=== PATIENT | female | born 1955 | race Caucasian/White ===

== ENCOUNTER → 2020-08-02 | Day surgery (SDC) | payer OTHER ==
--- NOTE | 2020-08-02 13:20 | RAD REPORT ---
EXAM DESCRIPTION: US - Breast Core BX w/US Guidance - 08/02/2020 9:42 am CLINICAL HISTORY: N63.12,N63.11,R92.8 COMPARISON: Mammogram June 25, breast ultrasound July 09 TECHNIQUE: The patient presents for ultrasound-guided biopsy of 2 right breast masses detailed on e earlier imaging. Patient is far remote from bilateral breast surgical procedures. The ultrasound-guided core biopsy procedure, risks and alternatives were discussed with the patient i n detail. After answering all questions, both oral and written consent were obtained. Time out proced ure was performed. The patient had no contraindicated allergy or medication history. Patient was suff iciently off aspirin therapy. Preliminary imaging identified the 2 right breast masses. The right breast was prepped and draped in the usual sterile fashion. The 15-18 mm lobulated 1 o'clock upper inner quadrant mass was first lesio n to be biopsied. From an inferior approach, skin and deeper tissues were anesthetized with 1% lidoca ine. Under direct sonographic visualization a 14 gauge vacuum assisted core biopsy needle was advance d and placed at the margin of the mass. There were a total of 3 core biopsies obtained under direct s onographic guidance. The mass did appear to have distortion in contour supporting transit of the biop sy needle through the small mass. At the conclusion of the procedure a localization clip was placed u nder sonographic guidance. The small spiculated 8 mm mass in the 9-10 o'clock right breast was then subjected to biopsy. Promine nt inferior approach the skin and deep tissues were anesthetized with 1% lidocaine under sonographic guidance. Under sonographic guidance a 14 gauge vacuum assisted biopsy needle was advanced and placed at the inferior margin of the mass. A total of 4 core biopsies obtained. At the conclusion of the p rocedure the localization clip was placed under sonographic guidance. Post biopsy imaging showed no hematoma or measurable bleeding within the breast. Hemostasis was obtai wil at the skin sites with a sterile bandages placed. Post procedure care and precaution instructions were given to the patient. IMPRESSION: 1. Ultrasound-guided core biopsy was performed of the 2 right breast masses. All obtaine d material was given to pathology for histologic assessment. 2. Post biopsy localization clips were placed under ultrasound guidance.
--- NOTE | 2020-08-02 13:22 | RAD REPORT ---
EXAM DESCRIPTION: US - Breast Core BX Addtnl - 08/02/2020 9:42 am CLINICAL HISTORY: Two right breast masses COMPARISON: Mammogram June 25, ultrasound July 09 FINDINGS: Patient has 2 right breast masses, upper inner quadrant 1 o'clock and upper outer quadrant 10 o'clock. Both masses were subjected to ultrasound-guided biopsy and post biopsy localization clip placement. The procedure for both breast masses detailed in the other breast biopsy report. IMPRESSION: Two right breast masses were subjected to biopsy as detailed in the other breast biopsy report.
== END ==
LOC: DS 10:07
PROVIDERS: ATTEND Surgery
DX: N63.12 Unspecified lump in the right breast, upper inner quadrant (principal); N63.11 Unspecified lump in the right breast, upper outer quadrant; R92.8 Other abnormal and inconclusive findings on diagnostic imaging of breast
CPT/HCPCS: 19083; 19084; 88305

== ENCOUNTER 2020-08-18 06:27 | Inpatient (IN) | payer OTHER ==
[2020-08-17 16:46] LABS: Absolute Lymphocytes (CBC) 3.2 K/uL (0.7-4.9); Basophils % 0.7 % (0-1.3); Hematocrit 46.5 % (36.0-45.0); Lymphocytes % 24.5 % (15.3-44.8); MPV 9.9 fL (7.6-11.3); RBC Red Blood Cell Count 5.16 M/uL (3.86-4.86)
--- NOTE | 2020-08-17 17:35 | RAD REPORT ---
EXAM DESCRIPTION: RAD - Chest Pa And Lat (2 Views) - 08/17/2020 4:42 pm CLINICAL HISTORY: preop, pending mastectomy COMPARISON: Portable January 2014 TECHNIQUE: Frontal and lateral views of the chest were obtained. FINDINGS: The lungs are fibrotic. Linear atelectasis or scarring seen in the lower left lung field. The interstitial pattern is similar to comparison. Heart size is normal and central vasculature is within normal limits. No pleural effusion or pneumothorax seen. No acute bony finding noted. No ao rtic abnormality. IMPRESSION: No acute cardiopulmonary process. No significant change from comparison study.
[2020-08-18] MEDS ORDERED: CEFAZOLIN/SWI 1gm 0 GM/0 ML SYR ONE (07:17)
[2020-08-18] MEDS ORDERED: NA CHLORIDE 0.9% 1,000 ML ONE (07:17)
[2020-08-18] MEDS: FENTANYL CITR 100 MCG/2 ML ONE ×2 (08:10→08:54)
[2020-08-18] MEDS ORDERED: propofoL 200 MG/20 ML VIAL IV ONE (10:30)
[2020-08-18] MEDS ORDERED: LIDOCAINE 2% MPF 5 ML VIAL ONE (10:32)
[2020-08-18] MEDS ORDERED: FENTANYL CITR 100 MCG/2 ML ONE (10:32)
[2020-08-18] MEDS ORDERED: MIDAZOLAM HCL 2 MG/2 ML INJ ONE (10:33)
[2020-08-18] MEDS ORDERED: ONDANSETRON 4 MG/2 ML VIAL ONE (10:33)
[2020-08-18] MEDS ORDERED: GLYCOPYRROLATE 0.2 MG/ML SYR ONE (10:34)
[2020-08-18] MEDS ORDERED: ROCURONIUM 50 MG/5 ML VIAL IV ONE (10:34)
[2020-08-18] MEDS ORDERED: NEOSTIGMINE 1 MG/ML -5 ML ONE (10:34)
[2020-08-18] MEDS: NA CHLORIDE 0.9% 1,000 ML ONE ×4 (10:43→14:30)
[2020-08-18] MEDS: CEFAZOLIN/SWI 2gm 2 GM/20 ML SYR ONE ×2 (10:47→11:26)
[2020-08-18] MEDS: METHYLENE BLUE 0.5% 10 ML AMP ONE ×2 (11:48→12:02)
--- NOTE | 2020-08-18 13:13 | RAD REPORT ---
EXAM DESCRIPTION: NM - Lymphoscintigraphy - 08/18/2020 8:04 am CLINICAL HISTORY: Breast cancer . TECHNIQUE: Four injections of 0.01 millicuries technetium filtered sulfur colloid administered into the the vish arerolar region of the right breast. The injections were placed at Twelve o'clock, 3 o'c lock, 6 o'clock and 9 o'clock positions. Subsequently a scintigram was obtained which demonstrated the radiotracer within these locations. IMPRESSION: Right breast lymphoscintigram
[2020-08-18] MEDS ORDERED: GLUCAGON 1 MG/VIAL IM PRN ×2 (15:08→17:11)
[2020-08-18] MEDS: HYDROMORPHONE HCL 1 MG/ML INJ ONE ×2 (15:09→15:20)
[2020-08-18] MEDS ORDERED: D50W 25 GM/50 ML VIAL IV PRN ×2 (15:36→17:19)
[2020-08-18 16:26] VITALS: BMI 29.2
[2020-08-18] MEDS: INSULIN -REGULAR HUMAN 50 UNIT/0.5 ML ML SQ SCH ×2 (16:29→20:12)
[2020-08-18] MEDS: NACHLORIDE 0.45% 1,000 ML IV SCH (16:29)
--- NOTE | 2020-08-18 17:10 | P.CNS ---
Date of Consult: 08/18/20 Reason for Consult: Diabetic management Requesting Physician: Thad Anderson Primary Care Provider: Dr. Gonzáles Chief Complaint: Diabetic management History of Present Illness: 65-year-old female who just had a bilateral mastectomy with node biopsy. Patient with history of breast cancer. I was consulted to address her diabetes for better control. 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 Patient doing well postoperatively. Patient reports back pain that has been chronic. Otherwise no significant nausea, vomiting. No chest pain or shortness of breath. She reports that her blood sugars are not very well controlled. She does not recall when her last hemoglobin A1c test has been done. Allergies clindamycin palmitate HCl [From Cleocin] Allergy (Severe, Verified 08/18/20 07:41) Nausea/Vomiting clindamycin phosphate [From Cleocin] Allergy (Severe, Verified 08/18/20 07:41) Nausea/Vomiting clindamycin HCl [From Cleocin] Allergy (Intermediate, Verified 08/18/20 07:41) Nausea/Vomiting adhesive tape Allergy (Verified 08/18/20 07:41) Rash Home medications list reviewed: Yes Home Medications: ALPRAZolam [Alprazolam] 1 mg PO BID 08/17/20 Ascorbic Acid [Vitamin C] 500 mg PO DAILY 08/17/20 Aspirin [Aspirin EC 81 MG] 81 mg PO BEDTIME 08/17/20 Baclofen 10 mg PO BID 08/17/20 Cholecalciferol (Vitamin D3) [Vitamin D3] 1,000 unit PO DAILY 08/17/20 Cholestyramine (with Sugar) [Cholestyramine Packet] 4 gm PO DAILY 08/17/20 Diclofenac Sodium [Diclo Gel] 1 each TP PRN PRN 08/17/20 Esomeprazole Magnesium 40 mg PO DAILY 08/17/20 Gabapentin 300 mg PO TID 08/17/20 Insulin Glargine Human [Lantus] 20 unit SQ BID 08/17/20 Metformin HCl 1,000 mg PO BIDWM 08/17/20 Multivitamin [One-Daily Multi-Vitamin] 1 each PO DAILY 08/17/20 [place]-3 Fatty Acids [[place]-3] 500 mg PO DAILY 08/17/20 Ondansetron HCl 4 mg PO Q8HP PRN 08/17/20 Pramipexole [Mirapex] 0.25 mg PO BEDTIME 08/17/20 Sertraline [Zoloft] 50 mg PO DAILY 08/17/20 Simvastatin 40 mg PO BEDTIME 08/17/20 Triamcinolone 0.1% Crm [Kenalog 0.1% Cream] 15 appl TOP PRN PRN 08/17/20 Vitamin E 400 unit PO DAILY 08/17/20 fentaNYL [Fentanyl] 50 mcg TD Q72H 08/17/20 - Past Medical/Surgical History Diabetic: Yes -: COPD -: Diabetes mellitus type 2 insulin-dependent -: Hyperlipidemia -: Depression with anxiety -: Chronic pain -: Breast cancer -: HYSTERECTOMY -: breast flap (tumors removed x 2 each breast) /abdominal sx -: vein stripping right leg -: fatty tumor removed groin -: BACK SURGERY -: BACLOFEN PAIN PUMP Psychosocial/ Personal History: Patient lives at home - Family History Father Medical History: Diabetes, Cancer Notes: pt states father was borderline diabetic, diet at the age of 56 from cancer. Mother Medical History: Cancer Notes: pt states mother at the age of 61 from cancer (female cancer). - Social History Smoking Status: Current every day smoker Alcohol use: No CD- Drugs: No Caffeine use: Yes Place of Residence: Home Review of Systems General: As per HPI Eyes: Unremarkable ENT: Unremarkable Respiratory: Unremarkable Cardiovascular: As per HPI Gastrointestinal: Unremarkable Genitourinary: Unremarkable Musculoskeletal: Back Pain, As per HPI Integumentary: Unremarkable Neurological: Unremarkable Lymphatics: Unremarkable Physical Examination Temp Pulse Resp BP Pulse Ox 97.3 F 112 H 18 139/75 08/18/20 15:29 08/18/20 15:29 08/18/20 15:29 08/18/20 15:29 General: Alert, In no apparent distress, Oriented x3, Cooperative HEENT: Atraumatic Neck: Supple Respiratory: Clear to auscultation bilaterally, Normal air movement Cardiovascular: Normal pulses, Regular rate/rhythm Gastrointestinal: Normal bowel sounds, No tenderness, No masses, No rebound, No guarding Integumentary: Other (Postoperative changes to the breast bilateral. Bandages in place.) Neurological: Normal speech, Normal strength at 5/5 x4 extr, Normal tone, Normal affect Conclusions/Impression: Impression: Status post bilateral breast mastectomy with lymph node biopsy secondary to breast cancer Diabetes mellitus type 2 insulin-dependent Chronic back pain with neuropathy Depression with anxiety GERD Plan: Status post bilateral breast mastectomy with lymph node biopsy secondary to breast cancer: We will follow along with surgery who is the primary physician. Continue with pain control medication. Anticipate likely discharge in the next 24 to 48 hours. Diabetes mellitus type 2 insulin-dependent: We will check A1c. Continue sliding scale. Will restart her basal insulin. We will also restart her metformin. Chronic back pain with neuropathy: Her pain medication will need to be restarted. Will discuss with surgery. Depression with anxiety: Medications will need to be restarted. GERD: Will provide medication. DVT prophylaxis: Lovenox CODE STATUS: Full code Advance care [id number] minutes: Home at discharge. Time Spent Managing Pts care (In Minutes): 55
[2020-08-18] MEDS ORDERED: HOME MED 1 EA UNK (Fentanyl [Fentanyl] Patch.Td72) TD SCH (17:15)
[2020-08-18] MEDS: FENTANYL 50 MCG/PATCH TD SCH (18:22)
[2020-08-18] MEDS: CIPROFLOXACIN 400mg IV 400 MG/200 ML BAG IV SCH (20:09)
[2020-08-18] MEDS: PRAMIPEXOLE 0.25 MG TAB PO SCH (20:11)
[2020-08-18] MEDS: HYDROCODONE/APAP 7.5/325 MG TAB PO PRN (20:11)
[2020-08-18] MEDS: ASPIRIN EC 81 MG TAB PO SCH (20:11)
[2020-08-18] MEDS: ATORVASTATIN 20 MG TAB PO SCH (20:11)
[2020-08-18] MEDS: BACLOFEN 10 MG TAB PO SCH (20:11)
[2020-08-18] MEDS: GABAPENTIN 300 MG CAP PO SCH (20:12)
[2020-08-18] MEDS: ALPRAZOLAM 1 MG TABLET PO SCH (20:12)
[2020-08-18] MEDS: INSULIN GLARGINE 100 UNITS/ML SQ SCH (20:23)
[2020-08-18] MEDS ORDERED: HOME MED 1 EA UNK (Simvastatin [Simvastatin] 40 MG Tablet) PO SCH (21:00)
[2020-08-19] MEDS: NACHLORIDE 0.45% 1,000 ML IV SCH ×4 (01:52→22:00)
[2020-08-19 05:50] LABS: Absolute Lymphocytes (CBC) 3.1 K/uL (0.7-4.9); Basophils % 0.7 % (0-1.3); Hematocrit 37.6 % (36.0-45.0); Lymphocytes % 22.1 % (15.3-44.8); MPV 9.8 fL (7.6-11.3); RBC Red Blood Cell Count 4.14 M/uL (3.86-4.86)
--- NOTE | 2020-08-19 06:01 | P.PN ---
Subjective Date of Service: 08/19/20 Primary Care Provider: Dr. Gonzáles Chief Complaint: Diabetic management Subjective: Improving, Doing well Physical Examination - Vital Signs Temperature: 97.6 F Blood Pressure: 102/52 Pulse: 76 Respirations: 16 Pulse Ox (%): 97 Assessment & Plan Discharge Plan: Home Plan to discharge in: 24 Hours Physician Review Additional Text: Physical Exam: General: Alert, In no apparent distress, Oriented x3, Cooperative HEENT: Atraumatic Neck: Supple Respiratory: Clear to auscultation bilaterally, Normal air movement Cardiovascular: Normal pulses, Regular rate/rhythm Gastrointestinal: Normal bowel sounds, No tenderness, No masses, No rebound, No guarding Integumentary: Other (Postoperative changes to the breast bilateral. Bandages in place.) Neurological: Normal speech, Normal strength at 5/5 x4 extr, Normal tone, Normal affect Impression: Status post bilateral breast mastectomy with lymph node biopsy secondary to breast cancer Diabetes mellitus type 2 insulin-dependent Chronic back pain with neuropathy Depression with anxiety GERD Plan: Status post bilateral breast mastectomy with lymph node biopsy secondary to breast cancer: Will continue to follow along with surgery who is the primary physician. Continue with pain control medication. Anticipate likely discharge in the next 24 to 48 hours. Diabetes mellitus type 2 insulin-dependent: Continue with basal insulin and Metformin. Will monitor and adjust medication appropriately. Hemoglobin A1c well controlled. Chronic back pain with neuropathy: Continue with her pain medication Depression with anxiety: Continue with her medication GERD: Will provide medication. DVT prophylaxis: Lovenox CODE STATUS: Full code Advance care minutes: Home at discharge. Time Spent Managing Pts Care (In Minutes): 55
[2020-08-19 06:16] LABS: ALT/SGPT 14 U/L (12-78); AST/SGOT 16 U/L (15-37); Albumin 2.9 g/dL (3.4-5.0); Alkaline Phosphatase 49 U/L (45-117); BUN Blood Urea Nitrogen 6 mg/dL (7-18); Bicarbonate 28 mmol/L (21-32); Bilirubin Total 0.7 mg/dL (0.2-1.0); Glucose Level 149 mg/dL (74-106); Potassium 3.5 mmol/L (3.5-5.1); Protein, Total 5.7 g/dL (6.4-8.2); Sodium Level 141 mmol/L (136-145)
[2020-08-19] MEDS: HYDROCODONE/APAP 7.5/325 MG TAB PO PRN ×3 (06:22→21:41)
[2020-08-19] MEDS: INSULIN -REGULAR HUMAN 50 UNIT/0.5 ML ML SQ SCH ×4 (07:30→21:00)
[2020-08-19] MEDS ORDERED: HOME MED 1 EA UNK (Metformin Hcl [Metformin Hcl] 1,000 MG Tablet) PO SCH (08:00)
[2020-08-19] MEDS: CIPROFLOXACIN 400mg IV 400 MG/200 ML BAG IV SCH ×2 (08:52→21:41)
[2020-08-19] MEDS: ALPRAZOLAM 1 MG TABLET PO SCH ×2 (08:57→21:42)
[2020-08-19] MEDS: VITAMIN D 1000 UNIT TAB PO SCH (08:57)
[2020-08-19] MEDS: METFORMIN HCL 500 MG TAB PO SCH ×2 (08:58→17:34)
[2020-08-19] MEDS: GABAPENTIN 300 MG CAP PO SCH ×3 (08:59→21:42)
[2020-08-19] MEDS: SERTRALINE HCL 50 MG TAB PO SCH (08:59)
[2020-08-19] MEDS: BACLOFEN 10 MG TAB PO SCH ×2 (08:59→21:42)
[2020-08-19] MEDS: MULTIVITAMIN TAB PO SCH (08:59)
[2020-08-19] MEDS ORDERED: HOME MED 1 EA UNK (Cholestyramine (With Sugar) [Cholestyramine Packet] 4 GM Powd.Pack) PO SCH (09:00)
[2020-08-19] MEDS: HOME MED 1 EA UNK (Omega-3 Fatty Acids [Omega-3] 1,000 MG Capsule) PO SCH (09:00)
[2020-08-19] MEDS ORDERED: MULTIVITAMIN PO SCH (09:00)
[2020-08-19] MEDS ORDERED: VITAMIN E 400 UNIT PO SCH (09:00)
[2020-08-19] MEDS ORDERED: HOME MED 1 EA UNK (Cholecalciferol (Vitamin D3) [Vitamin D3] 1,000 UNIT Capsule) PO SCH (09:00)
[2020-08-19] MEDS ORDERED: HOME MED 1 EA UNK (Esomeprazole Magnesium [Esomeprazole Magnesium] 40 MG Capsule.Dr) PO SCH (09:00)
[2020-08-19] MEDS: ASCORBIC ACID 500 MG TABLET PO SCH (09:00)
[2020-08-19] MEDS: PANTOPRAZOLE 40MG TABLET PO SCH (09:00)
[2020-08-19] MEDS: CHOLESTYRAMINE/ASP 4 GM/PKT PO SCH (09:01)
[2020-08-19] MEDS: VITAMIN E 400 IU CAP PO SCH (09:34)
[2020-08-19] MEDS: ENOXAPARIN 40 MG/0.4 ML SQ SCH (17:35)
--- NOTE | 2020-08-19 20:44 | PN ---
Date of Progress Note: 08/19/2020 Diagnosis: Status post bilateral mastectomy with sentinel lymph node biopsy. History of back pain. Subjective: The patient with history of breast cancer. The patient has previous a rectus muscle fla p in her breast from previous plastic surgery in the past. So, the surgery was not a routine mastect tamara, was a little bit more complicated since also muscle have to be removed, obviously that translati ng into a longer recovery, but she is doing great. She is still not tolerating pain with just by kath th. She is requiring IV medication. She also has this chronic back pain that is not helping either. She denies any shortness of breath, any chest pain, any fever. Chest clear. Intact surgical site. RUFINO serosanguineous. Abdomen soft and depressible. Laboratory Data: Blood work shows WBC count of 14, hemoglobin of 12 and chloride is 110. I appreciate Dr. Watkins's evaluation of her multiple medical history. We will follow his recommendat ions. From the surgical standpoint, she is not ready to be discharged yet. She is still requiring I V pain medication. Once again, this is a double mastectomy, but not routine one. It is a complex si nce the patient has previous breast reconstruction with an abdominal rectus muscle placed in those ar eas. Even though this surgery was successful, we believe it is a longer recovery. We are going to t ry to see if she is ready tomorrow, then we will proceed accordingly in a safe fashion. We like this patient to be discharged safely. ELENITA/CASS Voice ID: [id number] Report ID: [id number]
[2020-08-19] MEDS: ATORVASTATIN 20 MG TAB PO SCH (21:42)
[2020-08-19] MEDS: PRAMIPEXOLE 0.25 MG TAB PO SCH (21:42)
[2020-08-19] MEDS: INSULIN GLARGINE 100 UNITS/ML SQ SCH (21:42)
[2020-08-19] MEDS: ASPIRIN EC 81 MG TAB PO SCH (21:42)
--- NOTE | 2020-08-20 06:02 | P.PN ---
Subjective Date of Service: 08/20/20 Primary Care Provider: Dr. Gonzáles Chief Complaint: Diabetic management Subjective: Improving, Doing well Physical Examination - Vital Signs Temperature: 97.1 F Blood Pressure: 134/65 Pulse: 81 Respirations: 18 Pulse Ox (%): 97 - Studies Laboratory Data (last 24 hrs) 08/19/20 05:18: Sodium 141, Potassium 3.5, BUN 6 L, Creatinine 0.58, Glucose 149 H, Total Bilirubin 0.7, AST 16, ALT 14, Alkaline Phosphatase 49 08/19/20 05:18: WBC 14.20 H, Hgb 12.8 D, Hct 37.6 D, Plt Count 150 L D Assessment & Plan Discharge Plan: Home Plan to discharge in: 24 Hours Physician Review Additional Text: Physical Exam: General: Alert, In no apparent distress, Oriented x3, Cooperative HEENT: Atraumatic Neck: Supple Respiratory: Clear to auscultation bilaterally, Normal air movement Cardiovascular: Normal pulses, Regular rate/rhythm Gastrointestinal: Normal bowel sounds, No tenderness, No masses, No rebound, No guarding Integumentary: Other (Postoperative changes to the breast bilateral. Bandages in place.) Neurological: Normal speech, Normal strength at 5/5 x4 extr, Normal tone, Normal affect Impression: Status post bilateral breast mastectomy with lymph node biopsy secondary to breast cancer Diabetes mellitus type 2 insulin-dependent Chronic back pain with neuropathy Depression with anxiety GERD Plan: Status post bilateral breast mastectomy with lymph node biopsy secondary to breast cancer: Will continue to follow along with surgery who is the primary physician. Continue with pain control medication. Anticipate likely discharge today. She is medically clear for ak home. Diabetes mellitus type 2 insulin-dependent: Continue with basal insulin and Metformin. Will monitor and adjust medication appropriately. Hemoglobin A1c well controlled. Chronic back pain with neuropathy: Continue with her pain medication Depression with anxiety: Continue with her medication GERD: Will provide medication. DVT prophylaxis: Lovenox CODE STATUS: Full code Advance care minutes: Home at discharge. Time Spent Managing Pts Care (In Minutes): 55
[2020-08-20] MEDS: HYDROCODONE/APAP 7.5/325 MG TAB PO PRN ×2 (06:13→14:33)
[2020-08-20] MEDS: INSULIN -REGULAR HUMAN 50 UNIT/0.5 ML ML SQ SCH ×4 (07:30→21:00)
[2020-08-20] MEDS: VITAMIN E 400 IU CAP PO SCH (09:00)
[2020-08-20] MEDS: HOME MED 1 EA UNK (Omega-3 Fatty Acids [Omega-3] 1,000 MG Capsule) PO SCH (09:00)
[2020-08-20] MEDS: VITAMIN D 1000 UNIT TAB PO SCH (09:50)
[2020-08-20] MEDS: SERTRALINE HCL 50 MG TAB PO SCH (09:50)
[2020-08-20] MEDS: ASCORBIC ACID 500 MG TABLET PO SCH (09:50)
[2020-08-20] MEDS: METFORMIN HCL 500 MG TAB PO SCH ×2 (09:50→16:51)
[2020-08-20] MEDS: ALPRAZOLAM 1 MG TABLET PO SCH ×2 (09:50→22:10)
[2020-08-20] MEDS: GABAPENTIN 300 MG CAP PO SCH ×3 (09:50→22:11)
[2020-08-20] MEDS: CIPROFLOXACIN 400mg IV 400 MG/200 ML BAG IV SCH ×2 (09:50→22:11)
[2020-08-20] MEDS: PANTOPRAZOLE 40MG TABLET PO SCH (09:50)
[2020-08-20] MEDS: BACLOFEN 10 MG TAB PO SCH ×2 (09:51→22:11)
[2020-08-20] MEDS: MULTIVITAMIN TAB PO SCH (09:51)
[2020-08-20] MEDS: CHOLESTYRAMINE/ASP 4 GM/PKT PO SCH (09:51)
--- NOTE | 2020-08-20 11:43 | RAD REPORT ---
EXAM DESCRIPTION: RAD - Chest Single View - 08/20/2020 11:34 am CLINICAL HISTORY: hypoxia COMPARISON: Chest Pa And Lat (2 Views) dated 08/17/2020; CHEST SINGLE VIEW dated 01/24/2014; CHEST SIN GLE VIEW dated 12/18/2013; CHEST SINGLE VIEW dated 09/14/2013 FINDINGS: Postoperative changes in the breasts bilaterally. Surgical drains and parul are present. Increased linear opacities are present at the right lung base and hazy right upper lung opacity. Sim ilar scarring at the left lung base. Similar mild cardiomegaly. IMPRESSION: Increasing linear opacities at the right lung base and hazy right upper lung opacity riya t could reflect atelectasis and/or aspiration. Chronic changes in the left lung.
[2020-08-20] MEDS ORDERED: FUROSEMIDE 20 MG/ 2ML VIAL IV ONE (11:50)
[2020-08-20] MEDS: ENOXAPARIN 40 MG/0.4 ML SQ SCH (16:50)
--- NOTE | 2020-08-20 19:30 | DS ---
Diagnosis: Breast cancer, status post bilateral mastectomy with sentinel lymph node biopsy. Hospital Course: The patient feels better. She has history of chronic pain, on pain pump and Durage sic patch, that is holding her at this time. No shortness of breath. No chest pain. No fever. No calf tenderness. Chest clear, intact surgical site. Abdomen is soft and depressible. Extremities w ith good capillary refill. The patient will be discharged home. She is going to be under the help w ith the family members. She will follow up in my office this Sunday, Sunday, Sunday, whenever it is easier for her. Keep the dressings intact. Medication will include Cipro 500 p.o. q.12 and she already has her pain medication. She was instructed how to take care of RUFINO drains and if not, we snatana l then get home health agency if she thinks she needed to proceed to help her with that task. ELENITA/CASS Voice ID: [id number] Report ID: [id number]
[2020-08-20] MEDS: ASPIRIN EC 81 MG TAB PO SCH (22:11)
[2020-08-20] MEDS: ATORVASTATIN 20 MG TAB PO SCH (22:11)
[2020-08-20] MEDS: PRAMIPEXOLE 0.25 MG TAB PO SCH (22:11)
[2020-08-20] MEDS: INSULIN GLARGINE 100 UNITS/ML SQ SCH (22:12)
[2020-08-21] MEDS: INSULIN -REGULAR HUMAN 50 UNIT/0.5 ML ML SQ SCH ×4 (07:30→21:42)
[2020-08-21] MEDS: VITAMIN E 400 IU CAP PO SCH (08:48)
[2020-08-21] MEDS: ALPRAZOLAM 1 MG TABLET PO SCH ×2 (08:48→21:41)
[2020-08-21] MEDS: BACLOFEN 10 MG TAB PO SCH ×2 (08:48→21:41)
[2020-08-21] MEDS: ASCORBIC ACID 500 MG TABLET PO SCH (08:49)
[2020-08-21] MEDS: PANTOPRAZOLE 40MG TABLET PO SCH (08:49)
[2020-08-21] MEDS: SERTRALINE HCL 50 MG TAB PO SCH (08:49)
[2020-08-21] MEDS: GABAPENTIN 300 MG CAP PO SCH ×3 (08:49→21:41)
[2020-08-21] MEDS: METFORMIN HCL 500 MG TAB PO SCH ×2 (08:49→17:18)
[2020-08-21] MEDS: FENTANYL 50 MCG/PATCH TD SCH (08:50)
[2020-08-21] MEDS: MULTIVITAMIN TAB PO SCH (08:50)
[2020-08-21] MEDS: CHOLESTYRAMINE/ASP 4 GM/PKT PO SCH (08:50)
[2020-08-21] MEDS: CIPROFLOXACIN 400mg IV 400 MG/200 ML BAG IV SCH ×2 (08:51→21:40)
[2020-08-21] MEDS: HOME MED 1 EA UNK (Omega-3 Fatty Acids [Omega-3] 1,000 MG Capsule) PO SCH (08:51)
[2020-08-21] MEDS: VITAMIN D 1000 UNIT TAB PO SCH (08:56)
--- NOTE | 2020-08-21 09:13 | P.PN ---
Subjective Date of Service: 08/21/20 Primary Care Provider: Dr. Gonzáles Chief Complaint: Diabetic management Subjective: Improving, Doing well Physical Examination - Vital Signs Temperature: 97.4 F Blood Pressure: 117/55 Pulse: 75 Respirations: 18 Pulse Ox (%): 97 Assessment & Plan Discharge Plan: Other (SNF) Plan to discharge in: 48 Hours Physician Review Additional Text: Physical Exam: General: Alert, In no apparent distress, Oriented x3, Cooperative HEENT: Atraumatic Neck: Supple Respiratory: Poor inspiration. But sounds clear Cardiovascular: Normal pulses, Regular rate/rhythm Gastrointestinal: Normal bowel sounds, No tenderness, No masses, No rebound, No guarding Integumentary: Other (Postoperative changes to the breast bilateral. Bandages in place. Chest binding in place. RUFINO tube noted) Neurological: Normal speech, Normal strength at 5/5 x4 extr, Normal tone, Normal affect CXR: COMPARISON: Chest Pa And Lat (2 Views) dated 08/17/2020; CHEST SINGLE VIEW dated 01/24/2014; CHEST SINGLE VIEW dated 12/18/2013; CHEST SINGLE VIEW dated 09/14/2013 FINDINGS: Postoperative changes in the breasts bilaterally. Surgical drains and parul are present. Increased linear opacities are present at the right lung base and hazy right upper lung opacity. Similar scarring at the left lung base. Similar mild cardiomegaly. IMPRESSION: Increasing linear opacities at the right lung base and hazy right upper lung opacity that could reflect atelectasis and/or aspiration. Chronic changes in the left lung. Impression: Status post bilateral breast mastectomy with lymph node biopsy secondary to breast cancer Hypoxia likely from atelectasis Diabetes mellitus type 2 insulin-dependent Chronic back pain with neuropathy Depression with anxiety Restless leg syndrome GERD Hyperlipidemia Plan: Status post bilateral breast mastectomy with lymph node biopsy secondary to breast cancer: RUFINO drains in place. Continue with current wound care. Patient remains on Cipro as recommended by surgery. Patient was to be discharged yesterday but patient with hypoxia with noted atelectasis. Continue to wean off. Physical therapy recommended that the patient go to a skilled facility to continue rehabilitation especially with her underlying chronic back pain. Patient has agreed. Social work working to send patient to skilled facility to continue rehabilitation and wound care. This will likely occur on Sunday. Continue current plan of care. Hypoxia likely from atelectasis: Patient remains on oxygen. Continue to wean off. Encourage incentive spirometer. Physical therapy to continue to work with patient. Patient will be discharged to skilled facility likely on Sunday. Diabetes mellitus type 2 insulin-dependent: Continue with basal [id number] units subcu daily and Metformin at 1000 mg 1 pill twice daily. Will monitor and ad just medication appropriately. Hemoglobin A1c well controlled. Chronic back pain with neuropathy: Continue with her pain medicationsbaclofen 10 mg 1 pill twice daily, Neurontin 300 mg 3 times a day, fentanyl patch 50 mcg every 72 hours. Continue with above plan of care. Continue with physical therapy. Depression with anxiety: Continue with her medicationZoloft 50 mg daily and Xanax 1 mg 1 pill twice daily Restless leg syndrome: Continue Mirapex 0.25 mg at bedtime GERD: Will provide medicationProtonix 40 mg daily. We will add lactobacillus twice daily. Patient also takes cholestyramine 4 mg daily Hyperlipidemia: Continue with Lipitor 20 mg daily DVT prophylaxis: Lovenox CODE STATUS: Full code Advance care [id number] minutes: Patient desires to go to skilled facility. This was discussed in detail with bull velazquez. Social work working to get her approved. This will likely occur on Sunday. Time Spent Managing Pts Care (In Minutes): 55
[2020-08-21 09:55] LABS: Absolute Lymphocytes (CBC) 2.4 K/uL (0.7-4.9); Basophils % 0.6 % (0-1.3); Hematocrit 31.9 % (36.0-45.0); Lymphocytes % 25.7 % (15.3-44.8); MPV 9.8 fL (7.6-11.3); RBC Red Blood Cell Count 3.53 M/uL (3.86-4.86)
[2020-08-21 10:07] LABS: BUN Blood Urea Nitrogen 8 mg/dL (7-18); Bicarbonate 29 mmol/L (21-32); Glucose Level 217 mg/dL (74-106); Potassium 3.4 mmol/L (3.5-5.1); Sodium Level 141 mmol/L (136-145)
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
[2020-08-21] MEDS: ENOXAPARIN 40 MG/0.4 ML SQ SCH (17:00)
[2020-08-21] MEDS: PRAMIPEXOLE 0.25 MG TAB PO SCH (21:40)
[2020-08-21] MEDS: ASPIRIN EC 81 MG TAB PO SCH (21:41)
[2020-08-21] MEDS: ATORVASTATIN 20 MG TAB PO SCH (21:41)
[2020-08-21] MEDS: LACTOBACILLUS/ACIDOPHILUS TAB PO SCH (21:41)
[2020-08-21] MEDS: INSULIN GLARGINE 100 UNITS/ML SQ SCH (21:42)
[2020-08-22] MEDS: HYDROCODONE/APAP 7.5/325 MG TAB PO PRN (06:34)
[2020-08-22] MEDS: INSULIN -REGULAR HUMAN 50 UNIT/0.5 ML ML SQ SCH ×4 (07:30→20:14)
[2020-08-22] MEDS: ASCORBIC ACID 500 MG TABLET PO SCH (08:29)
[2020-08-22] MEDS: VITAMIN E 400 IU CAP PO SCH (08:29)
[2020-08-22] MEDS: LACTOBACILLUS/ACIDOPHILUS TAB PO SCH ×2 (08:30→20:12)
[2020-08-22] MEDS: SERTRALINE HCL 50 MG TAB PO SCH (08:30)
[2020-08-22] MEDS: CIPROFLOXACIN 400mg IV 400 MG/200 ML BAG IV SCH (08:30)
[2020-08-22] MEDS: VITAMIN D 1000 UNIT TAB PO SCH (08:30)
[2020-08-22] MEDS: ALPRAZOLAM 1 MG TABLET PO SCH ×2 (08:31→20:11)
[2020-08-22] MEDS: PANTOPRAZOLE 40MG TABLET PO SCH (08:31)
[2020-08-22] MEDS: GABAPENTIN 300 MG CAP PO SCH (08:31)
[2020-08-22] MEDS: BACLOFEN 10 MG TAB PO SCH ×2 (08:31→20:13)
[2020-08-22] MEDS: MULTIVITAMIN TAB PO SCH (08:31)
[2020-08-22] MEDS: CHOLESTYRAMINE/ASP 4 GM/PKT PO SCH (08:32)
[2020-08-22] MEDS: HOME MED 1 EA UNK (Omega-3 Fatty Acids [Omega-3] 1,000 MG Capsule) PO SCH (08:32)
[2020-08-22] MEDS: METFORMIN HCL 500 MG TAB PO SCH ×2 (08:32→17:20)
--- NOTE | 2020-08-22 08:57 | RAD REPORT ---
EXAM DESCRIPTION: Ervin Single View08/22/2020 7:00 am CLINICAL HISTORY: Shortness of breath COMPARISON: August 20, 2020 FINDINGS: Postsurgical changes involve the chest. The right lung opacities have partially resolved. There are a few areas of mild atelectasis left lung. Heart is mildly enlarged
--- NOTE | 2020-08-22 09:28 | P.PN ---
Subjective Date of Service: 08/22/20 Primary Care Provider: Dr. Gonzáles Chief Complaint: Diabetic management Subjective: Improving, Doing well (Patient still reports some pain to the back.) Physical Examination - Vital Signs Temperature: 98.4 F Blood Pressure: 108/55 Pulse: 73 Respirations: 18 Pulse Ox (%): 95 - Studies Laboratory Data (last 24 hrs) 08/21/20 09:47: Sodium 141, Potassium 3.4 L, BUN 8, Creatinine 0.52 L, Glucose 217 H 08/21/20 09:47: WBC 9.50 D, Hgb 10.8 L, Hct 31.9 L D, Plt Count 138 L Assessment & Plan Discharge Plan: Other (group home facility) Plan to discharge in: 24 Hours Physician Review Additional Text: Physical Exam: General: Alert, In no apparent distress, Oriented x3, Cooperative HEENT: Atraumatic Neck: Supple Respiratory: Poor inspiration. But sounds clear Cardiovascular: Normal pulses, Regular rate/rhythm Gastrointestinal: Normal bowel sounds, No tenderness, No masses, No rebound, No guarding Integumentary: Other (Postoperative changes to the breast bilateral. Bandages in place. Chest binding in place. RUFINO tube noted) Neurological: Normal speech, Normal strength at 5/5 x4 extr, Normal tone, Normal affect CXR: COMPARISON: Chest Pa And Lat (2 Views) dated 08/17/2020; CHEST SINGLE VIEW dated 01/24/2014; CHEST SINGLE VIEW dated 12/18/2013; CHEST SINGLE VIEW dated 09/14/2013 FINDINGS: Postoperative changes in the breasts bilaterally. Surgical drains and parul are present. Increased linear opacities are present at the right lung base and hazy right upper lung opacity. Similar scarring at the left lung base. Similar mild cardiomegaly. IMPRESSION: Increasing linear opacities at the right lung base and hazy right upper lung opacity that could reflect atelectasis and/or aspiration. Chronic changes in the left lung. Follow up CXR: COMPARISON: August 20, 2020 FINDINGS: Postsurgical changes involve the chest. The right lung opacities have partially resolved. There are a few areas of mild atelectasis left lung. Heart is mildly enlarged Impression: Status post bilateral breast mastectomy with lymph node biopsy secondary to breast cancer Hypoxia likely from atelectasis Diabetes mellitus type 2 insulin-dependent Chronic back pain with neuropathy Depression with anxiety Restless leg syndrome GERD Hyperlipidemia Plan: Status post bilateral breast mastectomy with lymph node biopsy secondary to breast cancer: RUFINO drains in place. Continue with current wound care. Patient remains on Cipro as recommended by surgery. Patient remains stable at this time. Will adjust pain medication. Continue to wean off oxygen due to hypoxia related to atelectasis. Physical therapy recommended that the patient go to a skilled facility to continue rehabilitation especially with her underlying chronic back pain. Patient has agreed. Social work working to send patient to skilled facility to continue rehabilitation and wound care. This will likely occur on Sunday. Continue current plan of care. Hypoxia likely from atelectasis: Patient remains on oxygen. Continue to wean off. Encourage incentive spirometer. Physical therapy to continue to work with patient. Patient will be discharged to skilled facility likely on Sunday. Diabetes mellitus type 2 insulin-dependent: Continue with basal [id number] units subcu daily and Metformin at 1000 mg 1 pill twice daily. Will monitor and adjust medication appropriately. Hemoglobin A1c well controlled. Chronic back pain with neuropathy: Currently on baclofen 10 mg 1 pill twice daily, Neurontin 300 mg 3 times a day, fentanyl patch 50 mcg every 72 hours. Patient also getting hydrocodone. Will increase Neurontin to 400 mg 3 times a day and adjust [place] for better pain control. Continue with physical therapy. Depression with anxiety: Continue with her medicationZoloft 50 mg daily and Xanax 1 mg 1 pill twice daily Restless leg syndrome: Continue Mirapex 0.25 mg at bedtime GERD: Will provide medicationProtonix 40 mg daily. We will add lactobacillus twice daily. Patient also takes cholestyramine 4 mg daily Hyperlipidemia: Continue with Lipitor 20 mg daily DVT prophylaxis: Lovenox CODE STATUS: Full code [facility] [id number] minutes: Patient desires to go to skilled facility. This was discussed in detail with patient. Social work working to get her approved. This will likely occur on Sunday. Time Spent Managing Pts Care (In Minutes): 55
[2020-08-22] MEDS ORDERED: HYDROCODONE/APAP 10/325 TAB PO PRN (09:29)
[2020-08-22] MEDS ORDERED: GABAPENTIN 400 MG CAP PO SCH (10:00)
[2020-08-22] MEDS ORDERED: CIPROFLOXACIN HCL 500 MG TAB PO SCH (10:00)
[2020-08-22] MEDS: GABAPENTIN 400 MG CAP PO SCH ×2 (13:14→20:12)
[2020-08-22] MEDS: ENOXAPARIN 40 MG/0.4 ML SQ SCH (17:20)
[2020-08-22] MEDS: ASPIRIN EC 81 MG TAB PO SCH (20:11)
[2020-08-22] MEDS: ATORVASTATIN 20 MG TAB PO SCH (20:11)
[2020-08-22] MEDS: PRAMIPEXOLE 0.25 MG TAB PO SCH (20:13)
[2020-08-22] MEDS: INSULIN GLARGINE 100 UNITS/ML SQ SCH (20:14)
[2020-08-22] MEDS: CIPROFLOXACIN HCL 500 MG TAB PO SCH (20:56)
--- NOTE | 2020-08-23 05:53 | P.PN ---
Subjective Date of Service: 08/23/20 Primary Care Provider: Dr. Gonzáles Chief Complaint: Diabetic management Subjective: Other (Pain to the back is better with change in medication. She had some urinary retention but straight cath was used. Ambulation is poor but she is trying.) Physical Examination - Vital Signs Temperature: 97.6 F Blood Pressure: 124/72 Pulse: 66 Respirations: 17 Pulse Ox (%): 96 Assessment & Plan Discharge Plan: Other (snf facility) Plan to discharge in: 24 Hours Physician Review Additional Text: Physical Exam: General: Alert, In no apparent distress, Oriented x3, Cooperative HEENT: Atraumatic Neck: Supple Respiratory: Poor inspiration. But sounds clear. On 2 L per nasal cannula. Cardiovascular: Normal pulses, Regular rate/rhythm Gastrointestinal: Normal bowel sounds, No tenderness, No masses, No rebound, No guarding Integumentary: Other (Postoperative changes to the breast bilateral. Bandages in place. Chest binding in place. RUFINO tube noted) Neurological: Normal speech, Normal strength at 5/5 x4 extr, Normal tone, Normal affect CXR: COMPARISON: Chest Pa And Lat (2 Views) dated 08/17/2020; CHEST SINGLE VIEW dated 01/24/2014; CHEST SINGLE VIEW dated 12/18/2013; CHEST SINGLE VIEW dated 09/14/2013 FINDINGS: Postoperative changes in the breasts bilaterally. Surgical drains and parul are present. Increased linear opacities are present at the right lung base and hazy right upper lung opacity. Similar scarring at the left lung base. Similar mild cardiomegaly. IMPRESSION: Increasing linear opacities at the right lung base and hazy right upper lung opacity that could reflect atelectasis and/or aspiration. Chronic changes in the left lung. Follow up CXR: CLINICAL HISTORY: Shortness of breath COMPARISON: August 20, 2020 FINDINGS: Postsurgical changes involve the chest. The right lung opacities have partially resolved. There are a few areas of mild atelectasis left lung. Heart is mildly enlarged Impression: Status post bilateral breast mastectomy with lymph node biopsy secondary to breast cancer Hypoxia likely from atelectasis Diabetes mellitus type 2 insulin-dependent Chronic back pain with neuropathy Depression with anxiety Restless leg syndrome GERD Hyperlipidemia Urinary retention Plan: Status post bilateral breast mastectomy with lymph node biopsy secondary to breast cancer: RUFINO drains in place. Continue with current wound care. Patient remains on Cipro as recommended by surgery. Patient remains stable at this time. Pain medication adjusted. Continue to wean off oxygen due to hypoxia related to atelectasis. No evidence of infection noted. Physical therapy to w ork with patient to get her approved to go to a skilled facility which she has agreed to. Social work working to send patient to skilled facility to continue rehabilitation and wound care. Hopefully will get approval within the next 24 to 40 hours. Hypoxia likely from atelectasis: Patient remains on oxygen. Continue to wean off. Encourage incentive spirometer. Physical therapy to continue to work with patient. Diabetes mellitus type 2 insulin-dependent: Continue with basal units subcu daily and Metformin at 1000 mg 1 pill twice daily. Will monitor and adjust medication appropriately. Hemoglobin A1c well controlled. Chronic back pain with neuropathy: Currently on baclofen 10 mg 1 pill twice daily, Neurontin 300 mg 3 times a day, fentanyl patch 50 mcg every 72 hours. Patient also getting hydrocodone. Neurontin was increased to 400 mg 3 times a day along with [place]. Continue with physical therapy. Depression with anxiety: Continue with her medicationZoloft 50 mg daily and Xanax 1 mg 1 pill twice daily Restless leg syndrome: Continue Mirapex 0.25 mg at bedtime GERD: Will provide medicationProtonix 40 mg daily. We will add lactobacillus twice daily. Patient also takes cholestyramine 4 mg daily Hyperlipidemia: Continue with Lipitor 20 mg daily Urinary retention: Some urinary retension noted. Patient had straight cath done. Will monitor urine output. DVT prophylaxis: Lovenox CODE STATUS: Full code [facility] [id number] minutes: Patient desires to go to skilled facility. This was discussed in detail with patient. Social work working to get her approved. Time Spent Managing Pts Care (In Minutes): 55
[2020-08-23] MEDS: INSULIN -REGULAR HUMAN 50 UNIT/0.5 ML ML SQ SCH ×4 (07:30→21:00)
[2020-08-23] MEDS: HOME MED 1 EA UNK (Omega-3 Fatty Acids [Omega-3] 1,000 MG Capsule) PO SCH (09:00)
[2020-08-23] MEDS: MULTIVITAMIN TAB PO SCH (09:15)
[2020-08-23] MEDS: ALPRAZOLAM 1 MG TABLET PO SCH (09:15)
[2020-08-23] MEDS: GABAPENTIN 400 MG CAP PO SCH ×2 (09:15→14:00)
[2020-08-23] MEDS: CIPROFLOXACIN HCL 500 MG TAB PO SCH ×2 (09:15→21:22)
[2020-08-23] MEDS: VITAMIN D 1000 UNIT TAB PO SCH (09:15)
[2020-08-23] MEDS: PANTOPRAZOLE 40MG TABLET PO SCH (09:15)
[2020-08-23] MEDS: METFORMIN HCL 500 MG TAB PO SCH ×2 (09:15→17:47)
[2020-08-23] MEDS: LACTOBACILLUS/ACIDOPHILUS TAB PO SCH ×2 (09:15→21:21)
[2020-08-23] MEDS: SERTRALINE HCL 50 MG TAB PO SCH (09:15)
[2020-08-23] MEDS: BACLOFEN 10 MG TAB PO SCH (09:15)
[2020-08-23] MEDS: VITAMIN E 400 IU CAP PO SCH (09:15)
[2020-08-23] MEDS: ASCORBIC ACID 500 MG TABLET PO SCH (09:15)
[2020-08-23] MEDS: CHOLESTYRAMINE/ASP 4 GM/PKT PO SCH (09:16)
--- NOTE | 2020-08-23 11:21 | P.BOP ---
Preoperative diagnosis: multifocal right breast cancer, HX of bilateral breast TRAM reconstruction Postoperative diagnosis: same Primary procedure: 1. Right mastectomy with sentinel axillary lymphnode biopsy Secondary procedure: 2. Left mastectomy Specimen: right breast with sentinel, left breast Findings: see dicta, see sentinel lymph node reading sheet Anesthesia: General Complications: None Drain(s): RUFINO drain Transferred to: Recovery Room Condition: Good
[2020-08-23] MEDS ORDERED: ALPRAZOLAM 1 MG TABLET PO PRN (15:38)
[2020-08-23] MEDS ORDERED: BACLOFEN 10 MG TAB PO PRN (15:38)
--- NOTE | 2020-08-23 16:09 | PN ---
Date of Progress Note: 08/23/2020 Subjective: The patient is doing well. No complaint. Yesterday, she had an episode of urinary reten tion, but then resolved today. From the surgical standpoint, she is doing okay and surgical dressing s are intact. We have not been able to discharge her yet. She is going to SNF and we are awaiting f or the insurance approval since she needs some assistance. The social media job titles and the primary doctor are working on that. From the surgical standpoint, she is ready to be discharged, just awaiting for social arrangements. ELENITA/CASS Voice ID: [id number] Report ID: [id number]
[2020-08-23 16:25] LABS: Absolute Lymphocytes (CBC) 2.5 K/uL (0.7-4.9); Basophils % 0.9 % (0-1.3); Hematocrit 35.3 % (36.0-45.0); Lymphocytes % 23.4 % (15.3-44.8); MPV 9.7 fL (7.6-11.3); RBC Red Blood Cell Count 3.93 M/uL (3.86-4.86)
[2020-08-23] MEDS: ENOXAPARIN 40 MG/0.4 ML SQ SCH (17:47)
[2020-08-23] MEDS: ASPIRIN EC 81 MG TAB PO SCH (21:21)
[2020-08-23] MEDS: ATORVASTATIN 20 MG TAB PO SCH (21:22)
[2020-08-23] MEDS: GABAPENTIN 300 MG CAP PO SCH (21:22)
[2020-08-23] MEDS: PRAMIPEXOLE 0.25 MG TAB PO SCH (21:22)
[2020-08-23] MEDS: INSULIN GLARGINE 100 UNITS/ML SQ SCH (21:23)
--- NOTE | 2020-08-23 21:23 | OP ---
Date of Procedure: 08/23/2020 Surgeon: Thad Anderson MD Preoperative Diagnoses: Multifocal right breast cancer, history of bilateral breast rectus muscle re construction by Plastic Surgery. History of chronic back pain, neuropathy. Postoperative Diagnosis: Multifocal right breast cancer, history of bilateral breast rectus muscle r econstruction by Plastic Surgery. History of chronic back pain, neuropathy. Procedures: 1.Right mastectomy with sentinel axillary lymph node biopsy. 2.Left mastectomy. Findings: As we mentioned already, the patient has bilateral rectus muscle breast reconstruction man y years ago, so we have a complex procedure with multiple excisions since the rectus muscle partially has to be removed since it is sitting in front of the breast and the fascia of the pectoralis and th at has to come with the specimen. Both sides were done individually to avoid cross contamination wit h different instruments and different setup. We started with the right side first and then left side . Complications: None. Drains: RUFINO #10 multiple. Indications: This is the case of a 65-year-old patient that more than 20 to 30 years ago had bilater al breast reconstruction with TRAM flap done by Plastic Surgery. Recently, she was found to have mul tifocal right breast cancer on the right side. She is trying to get the previous report from the jad stic surgeons in the past, but those reports are not available. She does not want to just remove the right side. She wants to remove the left side too. She wants a mastectomy and sentinel lymph node biopsy and axillary dissection on the right side, and she wants a mastectomy,, simple mastectomy in t he left side. We discussed with her at length the benefits, alternatives, and risks of each procedur e including her medical risk factor, which include, but not limited to infection, bleeding, damage to adjacent structures, anesthesia complication, flap failure, CO and even . She also understands this may not relieve her symptoms. She might need more than one surgical intervention. She underst ands she has previous reconstructive procedures and we do not have the report of those. I was able t o contact Dr. Blanco plastic surgeon who kindly answered my phone and even though he does not remember the case at least he illustrated to me how he used to do it in the past and that may give us some gu idance what to expect and see what we can expect in this case. The patient understood that. She sti ll wanted to proceed. Procedure In Detail: So the patient was brought to the operating room, placed in supine position. A nesthesia was done without complication. Bilateral breasts were prepped and draped in usual sterile fashion. Once again, we used the OR setting for each procedure to avoid cross contamination. We sta rted with the right side. In the right side, we proceeded then to proceed with a sentinel lymph node first. She went to the Radiology suite this morning when she received localization of sentinel lymp h node, and then we used the gamma probe to localize the sentinel lymph node. Please refer to the [facility] lymph node dated sheet provided in OR for details about the gamma probe numbers. We proceeded to then measure with the gamma probe the lymph node ex vivo to make an incision in the axilla just o n the axillary hairline. Incision was carried down to the axillary area. Once again, we measured th e lymph node and gamma probe numbers. We were able to localize the sentinel lymph node. Before that , we reinjected methylene blue over this skin and then massaged for about 5 to 10 minutes. Once we w ent to the axillary area, we were able to identify the sentinel lymph node and proceeded to remove th at and sent the specimen to the pathologist. Dr. Aguirre were able to identify the specimen and find that she has 2 lymph nodes so far. The sentinel lymph node shows no evidence of metastatic disease. At that moment, I proceeded to make incisions on the area of the breast to include previous scar tis nuno and include also the nipple-areola complex. Once we made an incision, we proceeded to elevate th e flaps all the way up to the clavicle medial to the sternum, inferior, below the inframammary fold a nd laterally to the latissimus dorsi. The difference in this case was that the area of the lateral s leah of the breast, the rectus muscle goes along the size of the pectoralis muscle. We were able to t ransect that muscle at the area below the inframammary fold and then lift the breast, the muscle and the pectoralis fascia with us all the way down to the tail of Cohn. Area was irrigated and then af ter that, I proceeded to put 2 drains in that area, 1 in the pectoralis flap and other one in the axi llary area and secured in place with 3-0 nylon. The skin was approximated with the help of 3-0 chrom ic and parul. The axillary lymph node was also closed in the same technique. Sponge counts and in strument counts were correct. We proceeded to move to the opposite side. This time once again new i nstruments, new gowns, new setup. After we have the count correct, in the other side we proceeded th en to open the skin in this region. We included the nipple-areola complex once again, made this curv ilinear incisions on the breast, and we left the flaps superior to the clavicle, medial to the sternu m, inferior to the inframammary fold, lateral to the latissimus dorsi area. We encountered the same situation. The rectus muscles goes through the flap and goes along the border of the pectoralis musc le. That muscle was transected proximal on the inframammary fold and then basically removed in one u nit the muscle, the breast, and the fascia of the pectoralis muscle. Area was irrigated. We proceed ed to leave 2 RUFINO drains in the area exiting from another point, secured in place with 3-0 nylon. The n, we proceeded to approximate the area with the help of 3-0 chromic, 0 chromic and parul. The spo nge counts and instrument counts were correct. Sterile dressing was placed over the area. The patie nt has multiple medical issues. She is very weak and she has also neuropathy, chronic back pain and chronic pain medication. She is still not able to take just medication by mouth, so she is going to keep on observation overnight. We are going to also ask the advice of the medical doctor to see if s he needs any other service that we can provide to improve her condition. Sponge counts and instrumen t counts correct. The patient tolerated the procedure well. ELENITA/CASS Voice ID: [id number] Report ID: [id number]
[2020-08-24] MEDS: HYDROCODONE/APAP 5/325 MG TAB PO PRN ×2 (04:57→21:23)
--- NOTE | 2020-08-24 06:12 | P.PN ---
Subjective Date of Service: 08/24/20 Primary Care Provider: Dr. Gonzáles Chief Complaint: Diabetic management Subjective: Improving, Doing well (Patient more alert today with adjustments in medications yesterday. Patient also worked with physical therapy this morning.) Physical Examination - Vital Signs Temperature: 96.4 F Blood Pressure: 128/66 Pulse: 77 Respirations: 17 Pulse Ox (%): 96 - Studies Laboratory Data (last 24 hrs) 08/23/20 16:10: WBC 10.50, Hgb 11.9 L, Hct 35.3 L, Plt Count 215 D Assessment & Plan Discharge Plan: Other (jail facility) Plan to discharge in: 24 Hours Physician Review Additional Text: Physical Exam: General: Alert, In no apparent distress, Oriented x3, Cooperative HEENT: Atraumatic Neck: Supple Respiratory: Poor inspiration. But sounds clear. On 2 L per nasal cannula. Cardiovascular: Normal pulses, Regular rate/rhythm Gastrointestinal: Normal bowel sounds, No tenderness, No masses, No rebound, No guarding Integumentary: Other (Postoperative changes to the breast bilateral. Bandages in place. Chest binding in place. RUFINO tube noted) Neurological: Normal speech, Normal strength at 5/5 x4 extr, Normal tone, Normal affect CXR: COMPARISON: Chest Pa And Lat (2 Views) dated 08/17/2020; CHEST SINGLE VIEW dated 01/24/2014; CHEST SINGLE VIEW dated 12/18/2013; CHEST SINGLE VIEW dated 09/14/2013 FINDINGS: Postoperative changes in the breasts bilaterally. Surgical drains and parul are present. Increased linear opacities are present at the right lung base and hazy right upper lung opacity. Similar scarring at the left lung base. Similar mild cardiomegaly. IMPRESSION: Increasing linear opacities at the right lung base and hazy right upper lung opacity that could reflect atelectasis and/or aspiration. Chronic changes in the left lung. Follow up CXR: CLINICAL HISTORY: Shortness of breath COMPARISON: August 20, 2020 FINDINGS: Postsurgical changes involve the chest. The right lung opacities have partially resolved. There are a few areas of mild atelectasis left lung. Heart is mildly enlarged Impression: Status post bilateral breast mastectomy with lymph node biopsy secondary to breast cancer Hypoxia likely from atelectasis Diabetes mellitus type 2 insulin-dependent Chronic back pain with neuropathy Depression with anxiety Restless leg syndrome GERD Hyperlipidemia Urinary retention Increased somnolence Plan: Status post bilateral breast mastectomy with lymph node biopsy secondary to breast cancer: RUFINO drains in place. Continue with current wound care. Patient remains on Cipro as recommended by surgery. Patient remains stable at this time. Pain, anxiety medications decreased yesterday due to increased somnolence. This has significantly improved. Patient more alert today. Patient working with physical therapy. Also patient able to urinate on her own. Continue with physical therapy. Spoke with vp digital marketing social media and crm. Likely skilled placement approval tomorrow or within 48 hours. I will turn the service over to the hospitalist team tomorrow. I will go plan of care with him. Hypoxia likely from atelectasis: Patient remains on oxygen. Continue to wean off. Encourage incentive spirometer. Physical therapy to continue to work with patient. Diabetes mellitus type 2 insulin-dependent: Continue with basal [id number] units subcu daily and Metformin at 1000 mg 1 pill twice daily. Will monitor and adjust medication appropriately. Hemoglobin A1c well controlled. Chronic back pain with neuropathy: All medications were adjusted yesterday. B aclofen now as needed. Neurontin decreased to 300 mg 3 times a day. Patient remains on fentanyl patch. Hydrocodone decreased. Patient now more alert and cooperative with physical therapy. Continue to monitor and adjust medication appropriately. Depression with anxiety: Continue with her medicationZoloft 50 mg daily. Ativan changed to as needed. Restless leg syndrome: Continue Mirapex 0.25 mg at bedtime GERD: Will provide medicationProtonix 40 mg daily. We will add lactobacillus twice daily. Patient also takes cholestyramine 4 mg daily Hyperlipidemia: Continue with Lipitor 20 mg daily Urinary retention: Patient able to urinate on her own. We will monitor this closely. Increased somnolence: This is likely from medications. Pain medication, anxiety medication decreased. Patient more alert today. DVT prophylaxis: Lovenox CODE STATUS: Full code [facility] [id number] minutes: Patient desires to go to skilled facility. This was discussed in detail with patient. Social work working to get her approved. Time Spent Managing Pts Care (In Minutes): 55
[2020-08-24] MEDS: INSULIN -REGULAR HUMAN 50 UNIT/0.5 ML ML SQ SCH ×4 (07:30→19:59)
[2020-08-24] MEDS: CIPROFLOXACIN HCL 500 MG TAB PO SCH ×2 (08:43→21:22)
[2020-08-24] MEDS: MULTIVITAMIN TAB PO SCH (08:44)
[2020-08-24] MEDS: VITAMIN D 1000 UNIT TAB PO SCH (08:44)
[2020-08-24] MEDS: PANTOPRAZOLE 40MG TABLET PO SCH (08:44)
[2020-08-24] MEDS: GABAPENTIN 300 MG CAP PO SCH ×3 (08:45→21:22)
[2020-08-24] MEDS: ASCORBIC ACID 500 MG TABLET PO SCH (08:45)
[2020-08-24] MEDS: VITAMIN E 400 IU CAP PO SCH (08:45)
[2020-08-24] MEDS: METFORMIN HCL 500 MG TAB PO SCH ×2 (08:45→16:33)
[2020-08-24] MEDS: SERTRALINE HCL 50 MG TAB PO SCH (08:45)
[2020-08-24] MEDS: LACTOBACILLUS/ACIDOPHILUS TAB PO SCH ×2 (08:45→21:22)
[2020-08-24] MEDS: FENTANYL 50 MCG/PATCH TD SCH (08:46)
[2020-08-24] MEDS: CHOLESTYRAMINE/ASP 4 GM/PKT PO SCH (08:46)
[2020-08-24] MEDS: HOME MED 1 EA UNK (Omega-3 Fatty Acids [Omega-3] 1,000 MG Capsule) PO SCH (08:49)
[2020-08-24] MEDS: ENOXAPARIN 40 MG/0.4 ML SQ SCH (16:34)
[2020-08-24] MEDS: ATORVASTATIN 20 MG TAB PO SCH (21:22)
[2020-08-24] MEDS: PRAMIPEXOLE 0.25 MG TAB PO SCH (21:22)
[2020-08-24] MEDS: ASPIRIN EC 81 MG TAB PO SCH (21:22)
[2020-08-24] MEDS: INSULIN GLARGINE 100 UNITS/ML SQ SCH (21:23)
[2020-08-25] MEDS ORDERED: MELATONIN 5 MG TABLET PO PRN (01:36)
[2020-08-25] MEDS: INSULIN -REGULAR HUMAN 50 UNIT/0.5 ML ML SQ SCH ×4 (07:30→21:00)
[2020-08-25] MEDS: GABAPENTIN 300 MG CAP PO SCH ×3 (08:24→22:48)
[2020-08-25] MEDS: LACTOBACILLUS/ACIDOPHILUS TAB PO SCH ×2 (08:24→22:48)
[2020-08-25] MEDS: PANTOPRAZOLE 40MG TABLET PO SCH (08:24)
[2020-08-25] MEDS: METFORMIN HCL 500 MG TAB PO SCH ×2 (08:24→18:08)
[2020-08-25] MEDS: ASCORBIC ACID 500 MG TABLET PO SCH (08:24)
[2020-08-25] MEDS: MULTIVITAMIN TAB PO SCH (08:24)
[2020-08-25] MEDS: SERTRALINE HCL 50 MG TAB PO SCH (08:24)
[2020-08-25] MEDS: CIPROFLOXACIN HCL 500 MG TAB PO SCH ×2 (08:24→22:47)
[2020-08-25] MEDS: VITAMIN E 400 IU CAP PO SCH (08:24)
[2020-08-25] MEDS: CHOLESTYRAMINE/ASP 4 GM/PKT PO SCH (08:25)
[2020-08-25] MEDS: HYDROCODONE/APAP 5/325 MG TAB PO PRN ×2 (08:25→20:18)
[2020-08-25] MEDS: VITAMIN D 1000 UNIT TAB PO SCH (08:25)
[2020-08-25] MEDS: HOME MED 1 EA UNK (Omega-3 Fatty Acids [Omega-3] 1,000 MG Capsule) PO SCH (08:59)
[2020-08-25] MEDS: ENOXAPARIN 40 MG/0.4 ML SQ SCH (18:08)
[2020-08-25] MEDS: PRAMIPEXOLE 0.25 MG TAB PO SCH (22:47)
[2020-08-25] MEDS: ASPIRIN EC 81 MG TAB PO SCH (22:47)
[2020-08-25] MEDS: ATORVASTATIN 20 MG TAB PO SCH (22:47)
[2020-08-25] MEDS: INSULIN GLARGINE 100 UNITS/ML SQ SCH (22:48)
[2020-08-25] MEDS: GLUCERNA SHAKE 237 ML CAN PO SCH (22:49)
[2020-08-26] MEDS: HYDROCODONE/APAP 5/325 MG TAB PO PRN ×2 (06:09→14:51)
[2020-08-26] MEDS: PROMETHAZINE INJ 25 MG/ML AMP IV PRN ×3 (06:11→22:31)
[2020-08-26] MEDS: INSULIN -REGULAR HUMAN 50 UNIT/0.5 ML ML SQ SCH ×4 (07:30→21:00)
[2020-08-26] MEDS: HOME MED 1 EA UNK (Omega-3 Fatty Acids [Omega-3] 1,000 MG Capsule) PO SCH (09:00)
[2020-08-26] MEDS: GLUCERNA SHAKE 237 ML CAN PO SCH ×2 (09:00→21:00)
[2020-08-26] MEDS: MULTIVITAMIN TAB PO SCH (11:06)
[2020-08-26] MEDS: VITAMIN D 1000 UNIT TAB PO SCH (11:06)
[2020-08-26] MEDS: SERTRALINE HCL 50 MG TAB PO SCH (11:06)
[2020-08-26] MEDS: VITAMIN E 400 IU CAP PO SCH (11:06)
[2020-08-26] MEDS: PANTOPRAZOLE 40MG TABLET PO SCH (11:07)
[2020-08-26] MEDS: ASCORBIC ACID 500 MG TABLET PO SCH (11:07)
[2020-08-26] MEDS: GABAPENTIN 300 MG CAP PO SCH ×3 (11:07→22:35)
[2020-08-26] MEDS: METFORMIN HCL 500 MG TAB PO SCH ×2 (11:07→18:53)
[2020-08-26] MEDS: LACTOBACILLUS/ACIDOPHILUS TAB PO SCH ×2 (11:07→22:36)
[2020-08-26] MEDS: CIPROFLOXACIN HCL 500 MG TAB PO SCH ×2 (11:07→22:36)
[2020-08-26] MEDS: CHOLESTYRAMINE/ASP 4 GM/PKT PO SCH (11:09)
[2020-08-26] MEDS: ENOXAPARIN 40 MG/0.4 ML SQ SCH (18:54)
[2020-08-26] MEDS: INSULIN GLARGINE 100 UNITS/ML SQ SCH (21:00)
[2020-08-26] MEDS: PRAMIPEXOLE 0.25 MG TAB PO SCH (22:36)
[2020-08-26] MEDS: ATORVASTATIN 20 MG TAB PO SCH (22:36)
[2020-08-26] MEDS: ASPIRIN EC 81 MG TAB PO SCH (22:36)
[2020-08-27] MEDS: PROMETHAZINE INJ 25 MG/ML AMP IV PRN ×2 (02:40→10:08)
[2020-08-27] MEDS: INSULIN -REGULAR HUMAN 50 UNIT/0.5 ML ML SQ SCH ×2 (07:30→11:30)
[2020-08-27] MEDS: CIPROFLOXACIN HCL 500 MG TAB PO SCH (09:00)
[2020-08-27] MEDS: VITAMIN E 400 IU CAP PO SCH (09:00)
[2020-08-27] MEDS: ASCORBIC ACID 500 MG TABLET PO SCH (09:00)
[2020-08-27] MEDS: GLUCERNA SHAKE 237 ML CAN PO SCH (09:00)
[2020-08-27] MEDS: HOME MED 1 EA UNK (Omega-3 Fatty Acids [Omega-3] 1,000 MG Capsule) PO SCH (09:00)
[2020-08-27] MEDS: VITAMIN D 1000 UNIT TAB PO SCH (09:00)
[2020-08-27] MEDS: CHOLESTYRAMINE/ASP 4 GM/PKT PO SCH (09:00)
[2020-08-27] MEDS: MULTIVITAMIN TAB PO SCH (09:00)
[2020-08-27] MEDS: PANTOPRAZOLE 40MG TABLET PO SCH (09:00)
[2020-08-27 09:09] VITALS: TEMP 97.6
[2020-08-27] MEDS: GABAPENTIN 300 MG CAP PO SCH (09:23)
[2020-08-27] MEDS: METFORMIN HCL 500 MG TAB PO SCH (09:23)
[2020-08-27] MEDS: SERTRALINE HCL 50 MG TAB PO SCH (09:23)
[2020-08-27] MEDS: LACTOBACILLUS/ACIDOPHILUS TAB PO SCH (09:24)
[2020-08-27] MEDS: FENTANYL 50 MCG/PATCH TD SCH (10:26)
[2020-08-27 10:58] VITALS: O2SAT 93
--- NOTE | 2020-08-27 11:25 | P.PN ---
Subjective Date of Service: 08/25/20 Subjective: No new changes, No C/O voiced, Improving Chart reviewed; events of the last 24hrs noted Review of Systems 10-point ROS is otherwise unremarkable Physical Examination - Vital Signs Temperature: 97.6 F Blood Pressure: 145/68 Pulse: 75 Respirations: 18 Pulse Ox (%): 96 - Physical Exam General: Alert, In no apparent distress, Oriented x3 Respiratory: Clear to auscultation bilaterally, Normal air movement Cardiovascular: Regular rate/rhythm, Normal S1 S2, No murmurs Gastrointestinal: Normal bowel sounds, Soft and benign, Non-distended, No tenderness Musculoskeletal: No clubbing, No swelling, No tenderness Neurological: Sensation intact, Cranial nerves 3-12 intact - Studies Medications List Reviewed: Yes Assessment & Plan - Problems (Diagnosis) (1) Breast cancer Current Visit: Yes Status: Acute (2) S/P bilateral mastectomy Current Visit: Yes Status: Acute (3) Neuropathy Current Visit: Yes Status: Acute (4) Chronic pain Current Visit: Yes Status: Acute (5) DM2 (diabetes mellitus, type 2) Current Visit: Yes Status: Acute (6) COPD (chronic obstructive pulmonary disease) Current Visit: Yes Status: Acute (7) Depression Current Visit: Yes Status: Acute - Plan PLAN: 1. Cont with PT 2. Surgical management for masectomy 3. Cont rx for COPD 4. COnt rx for depression 5. Cont rx for DM2 Discharge Plan: Group Home Plan to discharge in: 48 Hours - Advance Directives Does patient have a Living Will: No Does patient have a Durable POA for Healthcare: No - Code Status/Comfort Care Code Status Assessed: Yes Code Status: Full Code Critical Care: No Time Spent Managing PTS Care (In Minutes): 35
--- NOTE | 2020-08-27 11:28 | P.PN ---
Date of Service: 08/26/20 Subjective Pt continues to do well; awaiting to continue PT and RUFINO drain Review of Systems 10-point ROS is otherwise unremarkable Physical Examination - Vital Signs reviewed - Physical Exam General: Alert, In no apparent distress, Oriented x3 Respiratory: Clear to auscultation bilaterally, Normal air movement Cardiovascular: Regular rate/rhythm, Normal S1 S2, No murmurs Gastrointestinal: Normal bowel sounds, Soft and benign, Non-distended, No tenderness Musculoskeletal: No clubbing, No swelling, No tenderness Neurological: Sensation intact, Cranial nerves 3-12 intact Assessment & Plan - Problems (Diagnosis) (1) Breast cancer Current Visit: Yes Status: Acute (2) S/P bilateral mastectomy Current Visit: Yes Status: Acute (3) Neuropathy Current Visit: Yes Status: Acute (4) Chronic pain Current Visit: Yes Status: Acute (5) DM2 (diabetes mellitus, type 2) Current Visit: Yes Status: Acute (6) COPD (chronic obstructive pulmonary disease) Current Visit: Yes Status: Acute (7) Depression Current Visit: Yes Status: Acute - Plan Continue with plan of care as mentioned below 1. Cont with PT 2. Surgical management for masectomy 3. Cont rx for COPD 4. COnt rx for depression 5. Cont rx for DM2
[2020-08-27 12:29] VITALS: BP 149/66
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
== END 2020-08-27 15:20 | DRG 582 ==
LOC: OR 06:27 → 2ND 15:21 → OBSVTOIN 08-20 15:53
PROVIDERS: ADMIT Surgery; ATTEND Surgery
PROC: 0HBV0ZZ Excision of Bilateral Breast, Open Approach (ICD-10-PCS; principal; 2020-08-23)
DX: C50.411 Malignant neoplasm of upper-outer quadrant of right female breast (principal); J98.11 Atelectasis; E44.0 Moderate protein-calorie malnutrition; G89.29 Other chronic pain; M54.9 Dorsalgia, unspecified; F41.8 Other specified anxiety disorders; K21.9 Gastro-esophageal reflux disease without esophagitis; J44.9 Chronic obstructive pulmonary disease, unspecified; E78.5 Hyperlipidemia, unspecified; F17.200 Nicotine dependence, unspecified, uncomplicated; G25.81 Restless legs syndrome; E11.40 Type 2 diabetes mellitus with diabetic neuropathy, unspecified; R33.9 Retention of urine, unspecified; R09.02 Hypoxemia; Z68.29 Body mass index [BMI] 29.0-29.9, adult; Z85.3 Personal history of malignant neoplasm of breast; Z90.13 Acquired absence of bilateral breasts and nipples; Z79.4 Long term (current) use of insulin; Z88.1 Allergy status to other antibiotic agents; Z91.048 Other nonmedicinal substance allergy status; Z79.82 Long term (current) use of aspirin; Z79.899 Other long term (current) drug therapy; Z90.710 Acquired absence of both cervix and uterus; Z20.822 Contact with and (suspected) exposure to COVID-19
CPT/HCPCS: 36415; 71045; 71046; 78195; 80048; 80053; 82947; 83036; 84145; 85025; 88307; 88333; 94010; 97110; 97112; 97116; 97161; 97530; A9541; G0378; G0379; J0690; J0744; J1170; J1650; J1815; J1940; J2250; J2405; J2550; J2704; J2710; J3010; J7030; U0003

== ENCOUNTER 2020-10-11 08:36 | Day surgery (SDC) | payer OTHER ==
--- NOTE | 2020-10-08 15:20 | RAD REPORT ---
EXAM DESCRIPTION: Ervin Calixto And Siddhartha (2 Views)10/08/2020 3:10 pm CLINICAL HISTORY: Breast cancer/preop COMPARISON: August 2020 FINDINGS: The lungs appear clear of acute infiltrate. The heart is normal size IMPRESSION: No acute abnormalities displayed
[2020-10-08 15:37] LABS: Absolute Lymphocytes (CBC) 2.6 K/uL (0.7-4.9); Basophils % 0.9 % (0-1.3); Hematocrit 42.6 % (36.0-45.0); Lymphocytes % 28.4 % (15.3-44.8); MPV 9.7 fL (7.6-11.3); RBC Red Blood Cell Count 4.78 M/uL (3.86-4.86)
[2020-10-08 15:46] LABS: Potassium 4.4 mmol/L (3.5-5.1)
[2020-10-11] MEDS ORDERED: NA CHLORIDE 0.9% 1,000 ML ONE (09:51)
[2020-10-11] MEDS ORDERED: CEFAZOLIN/SWI 1gm 1 GM/10 ML SYR ONE (09:51)
[2020-10-11] MEDS: FENTANYL CITR 100 MCG/2 ML ONE ×2 (10:20→10:50)
[2020-10-11] MEDS ORDERED: HEPARIN 5000 UNIT/ML 1 ML VIAL ONE (11:03)
[2020-10-11] MEDS ORDERED: NS 0.9% VIAL 20 ML ONE (11:03)
[2020-10-11] MEDS ORDERED: BUPIVACAINE 0.5% PF 10 ML VIAL ONE (11:04)
[2020-10-11] MEDS ORDERED: FENTANYL CITR 100 MCG/2 ML ONE ×2 (11:26→12:49)
[2020-10-11] MEDS ORDERED: LIDOCAINE 1% MPF 5 ML VIAL ONE (11:26)
[2020-10-11] MEDS ORDERED: propofoL 200 MG/20 ML VIAL IV ONE (11:26)
[2020-10-11] MEDS ORDERED: dexAMETHasone 10 MG/ML VIAL ONE (11:54)
[2020-10-11] MEDS ORDERED: KETOROLAC 30 MG/ML INJ ONE (11:54)
[2020-10-11] MEDS ORDERED: NS 0.9% VIAL 10 ML ONE (11:57)
[2020-10-11] MEDS ORDERED: ONDANSETRON 4 MG/2 ML VIAL ONE (11:57)
[2020-10-11] MEDS ORDERED: EPHEDRINE SULF 50 MG/ML VIAL ONE (11:57)
--- NOTE | 2020-10-11 11:58 | P.BOP ---
Preoperative diagnosis: breast cancer Postoperative diagnosis: same Primary procedure: 1. Placement of Portacath Secondary procedure: 2. Interpretation of fluoroscopy Estimated blood loss: <10cc Specimen: none Findings: as above Anesthesia: General Implants: portacath Transferred to: Recovery Room Condition: Good
[2020-10-11] MEDS ORDERED: Mastisol Adhesive Liq ONE (12:11)
[2020-10-11] MEDS: HYDROMORPHONE HCL 1 MG/ML INJ ONE ×4 (12:16→12:33)
--- NOTE | 2020-10-11 12:40 | RAD REPORT ---
EXAM DESCRIPTION: [place] Single View10/11/2020 12:32 pm CLINICAL HISTORY: Device placement/central venous catheter placement IMPRESSION: Central venous catheter has been placed with its in the distal aspect of the brachioceph alic vein and superior vena cava. No pneumothorax
[2020-10-11 13:35] VITALS: TEMP 96.7
--- NOTE | 2020-10-11 13:50 | RAD REPORT ---
EXAM DESCRIPTION: RAD - Fluoroscopy <1 Hour - 10/11/2020 1:44 pm CLINICAL HISTORY: Device placement central venous catheter placement FINDINGS: A central venous catheter was placed into the distal brachiocephalic vein. Seven fluorosco pic spot images are submitted. The examination was performed by Dr. Anderson Fluoroscopy time 0.3 minutes
[2020-10-11 14:38] VITALS: BP 122/48; O2SAT 96
== END 2020-10-11 14:30 | disposition home or self-care (01) ==
LOC: OR 08:36
PROVIDERS: ATTEND Surgery
PROC: 02HV33Z Insertion of Infusion Device into Superior Vena Cava, Percutaneous Approach (ICD-10-PCS; principal; 2020-10-11 10:30)
DX: C50.912 Malignant neoplasm of unspecified site of left female breast (principal); C50.911 Malignant neoplasm of unspecified site of right female breast; Z20.822 Contact with and (suspected) exposure to COVID-19; Z92.21 Personal history of antineoplastic chemotherapy
CPT/HCPCS: 85025; 80048; 36415; 82947; 71045; 71046; 36561; U0003; J2704; J1644 ×2; J3010 ×2; J1100; J1170 ×2; J0690; J7030; J2405; C1788; 76000

== ENCOUNTER 2021-07-21 12:51 | Emergency (ER) | payer OTHER ==
--- OUTSIDE RECORDS SUMMARY | 2021-07-21 12:54 | XMS REPORT | Continuity of Care Document ---
:1955 Author Organization [facility] t Address [address] [place] [address] Dr. Latham [address] [place] [id number] Care Team Providers Name Role Phone Sergey-Mbayo_A_AH Attending Clinician Unavailable Sergey-Mbayo_A_AH Admitting Clinician Unavailable Payers Payer Name Policy Type Policy Number Effective Date Expiration Date S abena [facility] [place] - [id number] 2019 [employer] 00:00:00 (MEDICARE REPLACEMENT/ADVANT AGE - HMO) Problems This patient has no known problems. Allergies, Adverse Reactions, Alerts This patient has no known allergies or adverse reactions. Medications This patient has no known medications. Procedures This patient has no known procedures. Encounters Start End Encounter Admission Attending Care Care Encounter Source Date/Time Date/Time Type Type Clinicians Facility Department ID 2019-04-02 2019-04-02 Outpatient Sergey-Mbayo VFP VFP [phone] [facility] 07:19:00 07:19:00 _A_AH [id number] Family Practic e 2019-04-02 2019-04-02 Outpatient Sergey-Mbayo VFP VFP [phone] [facility] 07:19:00 07:19:00 _A_AH [id number] Family Practic e Results This patient has no known results.
[2021-07-21] MEDS ORDERED: MECLIZINE HCL 12.5 MG TAB ONE (13:45)
[2021-07-21] MEDS ORDERED: ONDANSETRON 4 MG/2 ML VIAL ONE (13:45)
[2021-07-21 14:05] LABS: Absolute Lymphocytes (CBC) 3.3 K/uL (0.7-4.9); Hematocrit 52.3 % (36.0-45.0); Lymphocytes % 19.2 % (15.3-44.8); MPV 9.1 fL (7.6-11.3); RBC Red Blood Cell Count 5.89 M/uL (3.86-4.86)
[2021-07-21 14:07] LABS: Protime INR 1.09
[2021-07-21 14:23] LABS: Potassium 3.6 mmol/L (3.5-5.1); Troponin High Sensitivity 8.8 pg/mL (<58.9)
--- NOTE | 2021-07-21 14:29 | RAD REPORT ---
EXAM DESCRIPTION: Ervin Single View07/21/2021 2:21 pm CLINICAL HISTORY: dizziness COMPARISON: 2020 FINDINGS: The lungs appear clear of acute infiltrate. The heart is normal size. Central venous line with its tip in the left brachiocephalic vein IMPRESSION: No acute abnormalities displayed
--- NOTE | 2021-07-21 14:32 | RAD REPORT ---
EXAM DESCRIPTION: CT - Head Brain Wo Cont - 07/21/2021 2:22 pm CLINICAL HISTORY: Dizziness COMPARISON: 2020 TECHNIQUE: Computed axial tomography of the head was obtained. IV contrast was not requested. All CT scans are performed using dose optimization technique as appropriate and may include automated exposure control or mA/KV adjustment according to patient size. FINDINGS: An intracranial bleed is not seen . The ventricles are normal in caliber. No extra-axial fluid collection is noted. Bilateral basal ganglia calcifications unchanged likely physiologic Fluid within the sinuses/ mastoids is not seen. IMPRESSION: No acute intracranial abnormality is seen. If patient's symptoms persist MRI of the bra in would be recommended.
[2021-07-21] MEDS ORDERED: NA CHLORIDE 0.9% 1,000 ML ONE (15:09)
--- NOTE | 2021-07-21 15:16 | EDPHYS ---
Physician Documentation [facility] Name: Shad Swift Age: 66 yrs Sex: Female : 1955 Arrival Date: 07/21/2021 Time: 12:52 Bed 19 Private MD: ED Physician Georges Bianchi HPI: 07/21 13:42 This 66 yrs old Female presents to ER via Wheelchair with complaints of Nausea, jr11 Dizziness. 13:42 The patient presents to the emergency department with nausea, that is moderate, jr11 vomiting, few times a day NBNB with movement . Onset: The symptoms/episode began/occurred 5 day(s) ago. Possible causes: no history of vertigo, PCP sent in for CT, denies any other neuro symptoms, describe dizziness as room spinning. The symptoms are aggravated by movement, The symptoms are alleviated by remaining still. Associated signs and symptoms: Pertinent positives: nausea, vomiting, dizziness, no ataxia. Severity of symptoms: At their worst the symptoms were moderate in the emergency department the symptoms are worse. The patient has not experienced similar symptoms in the past. no fever, denies any other complaints. Historical: - Allergies: 13:12 Clindamycin; ll1 13:12 adhesive tape; ll1 - PMHx: 13:12 chronic back pain; Diabetes - IDDM; High Cholesterol; ll1 - PSHx: 13:12 back SX x2; hysterecomy; ll1 - Immunization history:: Client reports receiving the 2nd dose of the Covid vaccine. - Social history:: Smoking status: Patient reports the use of cigarette tobacco products, smokes one-half pack cigarettes per day. ROS: 13:42 All other systems are negative. jr11 Exam: 13:42 Constitutional: This is a well developed, well nourished patient who is awake, alert, jr11 and in no acute distress. Head/Face: Normocephalic, atraumatic. Eyes: Extra-ocular motions intact. Lids and lashes normal. Conjunctiva and sclera are non-icteric and not injected. Cornea within normal limits. Periorbital areas with no swelling, redness, or edema. ENT: Nares patent. No nasal discharge, no septal abnormalities noted. Oropharynx with no redness, swelling, or masses, exudates, or evidence of obstruction, uvula midline. Mucous membranes moist. Chest/axilla: Normal chest wall appearance and motion. Nontender with no deformity. No lesions are appreciated. Cardiovascular: slightly tachy Respiratory: Lungs have equal breath sounds bilaterally, clear to auscultation and percussion. No rales, rhonchi or wheezes noted. No increased work of breathing, no retractions or nasal flaring. Abdomen/GI: Soft, non-tender, with normal bowel sounds. No distension or tympany. No guarding or rebound. No evidence of tenderness throughout. Back: No spinal tenderness. No costovertebral tenderness. Full range of motion. Skin: Warm, dry with normal turgor. Normal color with no rashes, no lesions, and no evidence of cellulitis. MS/ Extremity: Pulses equal, no cyanosis. Neurovascular intact. Full, normal range of motion. Neuro: Awake and alert, GCS 15, oriented to person, place, time, and situation. No gross motor or sensory deficits. +horizontal nystagmus Vital Signs: 13:14 BP 138 / 70; Pulse 101; Resp 18; Temp 97.6; Pulse Ox 98% ; Weight 79.38 kg; Height 5 ll1 ft. 3 in. (160.02 cm); Pain 8/10; 13:14 Body Mass Index 31.00 (79.38 kg, 160.02 cm) ll1 MDM: 13:30 Patient medically screened. jr11 13:42 Differential diagnosis: peripheral vertigo. Data reviewed: vital signs, nurses notes. jr11 ED course: Patient is a 89-[id number]-blk-year-old female with dyslipidemia here with 5-day history of dizziness, vertigo. Not a tPA candidate given greater than 4 hours. Patient with reproducible vertigo, worse with movement, likely peripheral in nature, will CT.. 13:58 ED course: EKG interpreted by me shows poor quality, normal sinus rhythm, left axis jr11 deviation, normal intervals, no gross acute ST changes. EKG nondiagnostic.. 15:14 ED course: No stroke, patient feeling better, HR down 90s with fluids. Pt will f/u jr11 neuro for vertigo. ER warnings given. No concern for infection, no fever no PERRY or neck pain.. 07/21 13:31 Order name: Basic Metabolic Panel; Complete Time: 14:41 jr11 07/21 13:31 Order name: CBC with Diff; Complete Time: 14:41 07/21 13:31 Order name: Protime (+inr); Complete Time: 14:41 07/21 13:31 Order name: Ptt, Activated; Complete Time: 14:41 07/21 13:31 Order name: Troponin High Sensitivity; Complete Time: 14:41 07/21 13:19 Order name: CT Head Brain wo Cont; Complete Time: 14:41 07/21 13:31 Order name: Stroke CXR 1 View; Complete Time: 14:41 07/21 13:31 Order name: EKG; Complete Time: 13:32 07/21 13:31 Order name: Accucheck; Complete Time: 15:07 07/21 13:31 Order name: Cardiac monitoring; Complete Time: 13:51 07/21 13:31 Order name: EKG - Nurse/Tech; Complete Time: 13:51 07/21 13:31 Order name: IV Saline Lock; Complete Time: 13:51 07/21 13:31 Order name: Labs collected and sent; Complete Time: 13:51 07/21 13:31 Order name: NPO; Complete Time: 13:53 07/21 13:31 Order name: O2 Per Protocol; Complete Time: 13:53 07/21 13:31 Order name: O2 Sat Monitoring; Complete Time: 13:53 07/21 13:31 Order name: Stroke Swallow Screen; Complete Time: 13:53 Administered Medications: 13:52 Drug: Zofran (Ondansetron) 4 mg Route: IVP; Site: left forearm; perry 13:53 Follow up: Response: No adverse reaction perry 13:52 Drug: Meclizine 50 mg Route: PO; perry 13:52 Follow up: Response: No adverse reaction perry 15:06 Drug: NS 0.9% 1000 ml Route: IV; Rate: 1 bolus; Site: left forearm; perry Disposition Summary: 07/21/21 15:15 Discharge Ordered Location: Home [facility] Condition: Stable jr Diagnosis - Other peripheral vertigo jr11 - Nausea with vomiting, unspecified jr11 Followup: [facility] - With: Sarbjit Faith MD - When: 1 - 2 days - Reason: Re-evaluation by your physician Discharge Instructions: - Discharge Summary Sheet jr11 - Nausea and Vomiting, Adult jr11 - Vertigo jr11 Forms: - Medication Reconciliation Form jr11 - Thank You Letter jr11 - Antibiotic Education jr11 - Prescription Opioid Use jr11 Prescriptions: - Meclizine 25 mg Oral Tablet - take 1 tablet by ORAL route every 8 hours As needed; 30 tablet; Refills: 0, jr11 Product Selection Permitted - Zofran 4 mg Oral Tablet - take 1 tablet by ORAL route every 12 hours As needed; 20 tablet; Refills: 0, jr11 Product Selection Permitted Signatures: Dispatcher [employer] Una Sinha RN RN ll1 Sameera Hunter RN RN ha Rosillo, Jose, MD MD jr11
--- NOTE | 2021-07-21 15:16 | ER ---
Nurse's Notes [facility] Name: Shad Swift Age: 66 yrs Sex: Female : 1955 Arrival Date: 07/21/2021 Time: 12:52 Bed 19 Private MD: Diagnosis: Other peripheral vertigo;Nausea with vomiting, unspecified Presentation: 07/21 13:14 Chief complaint: Patient states: 5 days of dizziness, weakness, N/V, confused for [address] Brown to r/o stroke. Coronavirus screen: Vaccine status: Patient reports receiving the 2nd dose of the covid vaccine. Client denies travel out of the [place] in the last 14 days. At this time, the client does not indicate any symptoms associated with coronavirus-19. Ebola Screen: Patient denies travel to an Ebola-affected area in the 21 days before illness onset. Initial Sepsis Screen: Does the patient meet any 2 criteria? HR > 90 bpm. No. Patient's initial sepsis screen is negative. Does the patient have a suspected source of infection? No. Patient's initial sepsis screen is negative. Risk Assessment: Do you want to hurt yourself or someone else? Patient reports no desire to harm self or others. Onset of symptoms was July 16, 2021. 13:14 Method Of Arrival: Wheelchair ll1 13:14 Acuity: [place] 3 ll1 Triage Assessment: 14:00 General: Appears in no apparent distress. Behavior is calm, cooperative. GI: Reports oliveros nausea. Historical: - Allergies: 13:12 Clindamycin; ll1 13:12 adhesive tape; ll1 - PMHx: 13:12 chronic back pain; Diabetes - IDDM; High Cholesterol; ll1 - PSHx: 13:12 back SX x2; hysterecomy; ll1 - Immunization history:: Client reports receiving the 2nd dose of the Covid vaccine. - Social history:: Smoking status: Patient reports the use of cigarette tobacco products, smokes one-half pack cigarettes per day. Screenin:53 Abuse screen: Denies threats or abuse. Denies injuries from another. Nutritional oliveros screening: No deficits noted. Tuberculosis screening: No symptoms or risk factors identified. The patient has not been NPO before screening. The patient is alert, able to follow commands. The patient does not exhibit slurred or garbled speech The patient is not exhibiting difficulty speaking. The patient is exhibiting difficulty understanding words. The patient is able to swallow own secretions with no drooling or need for suction. Patient tolerated one teaspoon of water. No drooling, immediate coughing, gurgling, or clearing of the throat was noted. The patient tolerated 90mL of water. No drooling, immediate coughing, gurgling, or clearing of the throat was noted. The patient passed the bedside swallow screening. Oral medications may be given as ordered. Contact Physician for further diet orders. Fall Risk Gait- Impaired (20 pts.). Assessment: 13:53 Pain: Denies pain. Neuro: Reports dizziness. GI: Abdomen is round non-distended, oliveros Reports nausea. Vital Signs: 13:14 BP 138 / 70; Pulse 101; Resp 18; Temp 97.6; Pulse Ox 98% ; Weight 79.38 kg; Height 5 ll1 ft. 3 in. (160.02 cm); Pain 8/10; 13:14 Body Mass Index 31.00 (79.38 kg, 160.02 cm) ll1 ED Course: 12:52 Patient arrived in ED. rg4 13:15 Triage completed. ll1 13:15 Arm band placed on. ll1 13:20 Georges Bianchi MD is Attending Physician. jr11 13:35 Sameera Hunter, STARLA is Primary Nurse. oliveros 13:47 Initial lab(s) drawn, by nh, sent to lab. Inserted saline lock: 20 gauge in left dh3 forearm, using aseptic technique. Blood collected. 13:53 Patient has correct armband on for positive identification. Bed in low position. oliveros 13:53 No provider procedures requiring assistance completed. oliveros 14:23 Stroke CXR 1 View In Process Unspecified. EDMS 14:24 CT Head Brain wo Cont In Process Unspecified. EDMS 15:16 Sarbjit Faith MD is Referral Physician. jr11 16:23 IV discontinued, intact, Pressure dressing applied. oliveros Administered Medications: 13:52 Drug: Zofran (Ondansetron) 4 mg Route: IVP; Site: left forearm; oliveros 13:53 Follow up: Response: No adverse reaction oliveros 13:52 Drug: Meclizine 50 mg Route: PO; oliveros 13:52 Follow up: Response: No adverse reaction oliveros 15:06 Drug: NS 0.9% 1000 ml Route: IV; Rate: 1 bolus; Site: left forearm; Medication: 13:53 VIS not applicable for this client. oliveros Outcome: 15:15 Discharge ordered by . jr11 16:23 Discharged to home via wheelchair, with family. oliveros 16:23 Condition: good 16:23 Discharge instructions given to patient, Prescriptions given X 2. 16:23 Patient left the ED. oliveros Signatures: Dispatcher [employer] Josefa Blanco 4 Irina Holliday 3 Una Grove, RN RN ll1 Sameera Hunter RN RN Georges Jha MD MD jr11
[2021-07-21 16:31] VITALS: BP 138/70; TEMP 97.6; O2SAT 98
--- NOTE | 2021-07-22 06:18 | EKG ---
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
== END 2021-07-21 16:23 | disposition home or self-care (01) ==
LOC: ER 12:51
DX: H81.399 Other peripheral vertigo, unspecified ear (principal); E11.9 Type 2 diabetes mellitus without complications; F17.210 Nicotine dependence, cigarettes, uncomplicated; Z88.3 Allergy status to other anti-infective agents; Z91.048 Other nonmedicinal substance allergy status
CPT/HCPCS: 93005; 85025; 80048; 36415; 85610; 85730; 84484; 70450; 71045; 96374; 99284; J8597; J7030; J2405

== ENCOUNTER 2021-10-06 20:15 | Emergency (ER) | payer OTHER ==
--- OUTSIDE RECORDS SUMMARY | 2021-10-06 20:17 | XMS REPORT | Continuity of Care Document ---
:1955 Author Organization [facility] t Address [address] [place] [address] Dr. Latham [address] [place] [address] Care Team Providers Name Role Phone Sergey-Mbayo_A_AH Attending Clinician Unavailable Sergey-Mbayo_A_AH Admitting Clinician Unavailable Payers Payer Name Policy Type Policy Number Effective Date Expiration Date S abena [facility] [place] - [id number] 2019 [employer] 00:00:00 (MEDICARE REPLACEMENT/ADVANT AGE - [...] 2019-04-02 Outpatient Sergey-Mbayo VFP VFP [phone] [facility] 07:19:00 07:19:00 _A_AH [id number] Family Practic e 2019-04-02 2019-04-02 Outpatient Sergey-Mbayo VFP VFP [phone] [facility] 07:19:00 07:19:00 _A_AH [id number] Family Practic e Results This patient has no known results.
[2021-10-06] MEDS ORDERED: ONDANSETRON 4 MG/2 ML VIAL ONE (21:10)
[2021-10-06 21:57] LABS: SARS-CoV-2 Antigen Rapid Res Negative (Negative)
[2021-10-06 22:05] LABS: Absolute Lymphocytes (CBC) 1.4 K/uL (0.7-4.9); Hematocrit 40.3 % (36.0-45.0); Lymphocytes % 11.2 % (15.3-44.8); MCV 87.6 fL (80-100); MPV 9.2 fL (7.6-11.3)
--- NOTE | 2021-10-06 22:13 | RAD REPORT ---
EXAM DESCRIPTION: Ervin Single View10/06/2021 9:42 pm CLINICAL HISTORY: Congestion COMPARISON: July 2021 FINDINGS: The lungs appear clear of acute infiltrate. The heart is normal size. Central venous line has its tip overlying the top of the aortic knob presumably in the left brachioce phalic vein IMPRESSION: No acute abnormalities displayed
[2021-10-06 22:24] LABS: ALT/SGPT 18 U/L (12-78); AST/SGOT 17 U/L (15-37); Albumin 2.9 g/dL (3.4-5.0); Alkaline Phosphatase 67 U/L (45-117); BUN Blood Urea Nitrogen 16 mg/dL (7-18); Bicarbonate 29 mmol/L (21-32); Bilirubin Direct < 0.1 mg/dL (0-0.2); Bilirubin Total 0.4 mg/dL (0.2-1.0); Glomerular Filtration Rate 71 ml/min (=/>90); Glucose Level 264 mg/dL (74-106); NT PRO-BNP 197 pg/mL (<125); Potassium 4.2 mmol/L (3.5-5.1); Protein, Total 6.3 g/dL (6.4-8.2); Sodium Level 143 mmol/L (136-145); Troponin High Sensitivity 6.1 pg/mL (<58.9)
[2021-10-06 22:25] LABS: Magnesium 1.3 mg/dL (1.8-2.4)
[2021-10-06] MEDS ORDERED: Magnesium Sulfate 2gm IVPB 2 G/50 ML BAG IV ONE (22:41)
[2021-10-06 23:35] LABS: Protime INR 1.03
[2021-10-06 23:48] LABS: Urine Blood Trace-lysed (Negative); Urine Glucose 2+ (Negative); Urine Protein Negative (Negative); Urine Specific Gravity >=1.030 (1.005-1.030); Urine pH 5.5 (5.0-7.0)
--- NOTE | 2021-10-06 23:55 | EDPHYS ---
Physician Documentation [facility] Name: Shad Swift Age: 66 yrs Sex: Female : 1955 Arrival Date: 10/06/2021 Time: 20:18 Bed 16 Private MD: ED Physician Dragan Cabral HPI: 10/06 21:00 This 66 yrs old Female presents to ER via EMS with complaints of Breathing livan Difficulty. 21:00 The patient has shortness of breath at rest, with light activity. Onset: The livan symptoms/episode began/occurred just prior to arrival. Duration: The symptoms are continuous, but are steadily getting better. The patient's shortness of breath is aggravated by nothing, is alleviated by nothing. Associated signs and symptoms: Pertinent positives: non-productive cough, nausea. Severity of symptoms: At their worst the symptoms were moderate in the emergency department the symptoms are unchanged. The patient has not experienced similar symptoms in the past. Historical: - Allergies: 20:26 adhesive tape; ke1 20:26 Clindamycin; ke1 - PMHx: 20:26 chronic back pain; Diabetes - IDDM; High Cholesterol; ke1 - PSHx: 20:26 back SX x2; Hysterecomy; mastectomy; ke1 - Immunization history:: Client reports receiving the 2nd dose of the Covid vaccine. - Social history:: Smoking status: Patient reports the use of cigarette tobacco products, smokes one pack cigarettes per day. ROS: 21:03 Constitutional: Negative for fever, chills, and weight loss, Eyes: Negative for injury, livan pain, redness, and discharge, ENT: Negative for injury, pain, and discharge, Neck: Negative for injury, pain, and swelling, Cardiovascular: Negative for chest pain, palpitations, and edema, Abdomen/GI: Negative for abdominal pain, nausea, vomiting, diarrhea, and constipation, Back: Negative for injury and pain, : Negative for injury, bleeding, discharge, and swelling, MS/Extremity: Negative for injury and deformity, Skin: Negative for injury, rash, and discoloration, Neuro: Negative for headache, weakness, numbness, tingling, and seizure, Psych: Negative for depression, anxiety, suicide ideation, homicidal ideation, and hallucinations, Allergy/Immunology: Negative for hives, rash, and allergies, Endocrine: Negative for neck swelling, polydipsia, polyuria, polyphagia, and marked weight changes, Hematologic/Lymphatic: Negative for swollen nodes, abnormal bleeding, and unusual bruising. 21:03 Respiratory: Positive for cough, shortness of breath. Exam: 21:03 Constitutional: This is a well developed, well nourished patient who is awake, alert, livan and in no acute distress. Head/Face: Normocephalic, atraumatic. Eyes: Pupils equal round and reactive to light, extra-ocular motions intact. Lids and lashes normal. Conjunctiva and sclera are non-icteric and not injected. Cornea within normal limits. Periorbital areas with no swelling, redness, or edema. ENT: Nares patent. No nasal discharge, no septal abnormalities noted. Tympanic membranes are normal and external auditory canals are clear. Oropharynx with no redness, swelling, or masses, exudates, or evidence of obstruction, uvula midline. Mucous membranes moist. Neck: Trachea midline, no thyromegaly or masses palpated, and no cervical lymphadenopathy. Supple, full range of motion without nuchal rigidity, or vertebral point tenderness. No Meningismus. Chest/axilla: Normal chest wall appearance and motion. Nontender with no deformity. No lesions are appreciated. Respiratory: Lungs have equal breath sounds bilaterally, clear to auscultation and percussion. No rales, rhonchi or wheezes noted. No increased work of breathing, no retractions or nasal flaring. Abdomen/GI: Soft, non-tender, with normal bowel sounds. No distension or tympany. No guarding or rebound. No evidence of tenderness throughout. Back: No spinal tenderness. No costovertebral tenderness. Full range of motion. Female : Normal external genitalia. Skin: Warm, dry with normal turgor. Normal color with no rashes, no lesions, and no evidence of cellulitis. MS/ Extremity: Pulses equal, no cyanosis. Neurovascular intact. Full, normal range of motion. Neuro: Awake and alert, GCS 15, oriented to person, place, time, and situation. Cranial nerves II-XII grossly intact. Motor strength 5/5 in all extremities. Sensory grossly intact. Cerebellar exam normal. Normal gait. Psych: Awake, alert, with orientation to person, place and time. Behavior, mood, and affect are within normal limits. 21:03 Cardiovascular: Rate: tachycardic, actual rate is 107 bpm, Rhythm: regular, Pulses: no pulse deficits are appreciated, Heart sounds: normal, Edema: is not appreciated, JVD: is not appreciated. 21:24 ECG was reviewed by the Attending Physician. [facility] Vital Signs: 20:20 BP 158 / 100; Pulse 107; Resp 22; Temp 99.8(O); Pulse Ox 69% ; Weight 80.74 kg; Height ke1 5 ft. 2 in. (157.48 cm); Pain 8/10; 22:07 BP 126 / 65; Pulse 82; Resp 15; Pulse Ox 94% on R/A; Pain 0/10; ke1 22:23 BP 105 / 67 Supine; Pulse 83; Pulse Ox 95% on R/A; ke1 22:26 BP 127 / 68 Sitting; Pulse 84; Pulse Ox 95% ; ke1 23:29 BP 141 / 94 Standing; Pulse 98; Pulse Ox 94% on R/A; ke1 20:20 Body Mass Index 32.56 (80.74 kg, 157.48 cm) ke1 MDM: 20:22 Patient medically screened. [facility] 21:04 Differential diagnosis: Bronchitis CHF exacerbation, Chronic Obstructive Pulmonary livan Disease. Antibiotic administration: Not indicated. The patient's [place] Deep Vein Thrombosis Score was calculated as follows: Heart Rate >100 BPM (1.5 Pts) Total Score: 0-2 Pts- Low Risk. The patient's pulmonary embolism risk score was calculated as follows: the patients heart rate is greater than 100 beats per minute (1.5 Pts). Immunization status: Pneumococcal vaccine: Influenza vaccine: Data reviewed: vital signs, nurses notes, lab test result(s), EKG, radiologic studies, plain films. Data interpreted: monitor car operator: rate is 107 beats/min, rhythm is regular, Pulse oximetry: on room air is 95 %. Test interpretation: by ED physician or midlevel provider: ECG, plain radiologic studies. Counseling: I had a detailed discussion with the patient and/or guardian regarding: the historical points, exam findings, and any diagnostic results supporting the discharge/admit diagnosis, the presence of at least one elevated blood pressure reading (>120/80) during this emergency department visit. 10/06 20:59 Order name: Basic Metabolic Panel; Complete Time: 22:26 [facility] 10/06 20:59 Order name: CBC with Diff; Complete Time: 22:25 [facility] 10/06 20:59 Order name: LFT's; Complete Time: 22:26 [facility] 10/06 20:59 Order name: Magnesium; Complete Time: 22: [facility] 10/06 20:59 Order name: NT PRO-BNP; Complete Time: 22:26 [facility] 10/06 20:59 Order name: PT-INR [facility] 10/06 20:59 Order name: Troponin HS; Complete Time: 22:26 [facility] 10/06 20:59 Order name: SARS RAPID; Complete Time: 22: [facility] 10/06 20:59 Order name: Flu; Complete Time: 22:25 [facility] 10/06 23:48 Order name: Urine Culture [facility] 10/06 23:49 Order name: Urine Dipstick-Ancillary [facility] 10/07 00:02 Order name: Urinalysis [facility] 10/07 00:06 Order name: Urinalysis [facility] 10/06 20:59 Order name: XRAY Chest (1 view); Complete Time: 22:25 [facility] 10/06 20:59 Order name: EKG; Complete Time: 21:01 [facility] 10/06 20:59 Order name: Cardiac monitoring; Complete Time: 21:22 [facility] 10/06 20:59 Order name: EKG - Nurse/Tech; Complete Time: 21:22 [facility] 10/06 20:59 Order name: IV Saline Lock; Complete Time: 21:36 [facility] 10/06 20:59 Order name: Labs collected and sent; Complete Time: 21:36 [facility] 10/06 20:59 Order name: O2 Per Protocol; Complete Time: 21:22 [facility] 10/06 20:59 Order name: O2 Sat Monitoring; Complete Time: 21:22 [facility] 10/06 20:59 Order name: Urine Dipstick-Ancillary (obtain specimen); Complete Time: 23:51 [facility] 10/06 23:30 Order name: Orthostatics; Complete Time: 23:30 [facility] 10/06 23:30 Order name: Swallow Screen; Complete Time: 23:30 [facility] 10/06 23:31 Order name: Misc. Order: UA PLEASE; Complete Time: 00:06 [facility] EC:24 Rate is 84 beats/min. Rhythm is regular. QRS [place] is Normal. MD interval is normal. QRS livan interval is normal. No Q waves. T waves are Normal. No ST changes noted. Clinical impression: Normal ECG. Interpreted by me. Administered Medications: 20:58 Drug: fentaNYL (PF) 25 mcg Route: IVP; Site: left hand; ke1 21:30 Follow up: Response: Marked relief of symptoms; Marked relief of symptoms, patient not ke1 shaking anymore, tremors improved 21:11 Drug: Zofran (Ondansetron) 4 mg Route: IVP; Site: left hand; ke1 21:41 Follow up: Response: No adverse reaction; No adverse reaction no nausea ke1 21:25 Not Given (Duplicate Order): fentaNYL (PF) 25 mcg IVP once ke1 22:35 Drug: Magnesium Sulfate 2 grams Route: IVPB; Infused Over: 2 hrs; Site: left hand; ke1 10/07 00:49 Follow up: IV Status: Completed infusion ke1 10/06 23:55 Drug: Rocephin (cefTRIAXone) 1 grams Route: IV; Rate: per protocol; Site: left hand; ke1 10/07 00:00 Follow up: Response: No adverse reaction; IV Status: Completed infusion ke1 10/06 23:55 Drug: Cipro (ciprofloxacin) 500 mg Route: PO; ke1 10/07 00:48 Follow up: Response: No adverse reaction ke1 Disposition Summary: 10/06/21 23:54 Discharge Ordered Location: Home livan Problem: new livan Symptoms: have improved livan Condition: Stable livan Diagnosis - Chronic pain syndrome livan - youtuber (current) use of opiate analgesic livan - Dyspnea - RESOLVED livan - Type 1 diabetes mellitus with hyperglycemia livan - UTI/ Urinary tract infection, site not specified livan Followup: livan - With: Private Physician - When: 2 - 3 days - Reason: Recheck today's complaints, Continuance of care, Re-evaluation by your physician Discharge Instructions: - Discharge Summary Sheet livan - Chronic Back Pain livan - Chronic Pain, Adult livan - Hyperglycemia livan - Hyperglycemic Hyperosmolar State livan - Dysuria livan - Chronic Back Pain, [id number] livan - Basics of Medicine Management livan - Urinary Tract Infection, Adult livan - Urinary Tract Infection, Adult, [id number] livan Forms: - Medication Reconciliation Form livan - Thank You Letter livan - Antibiotic Education livan - Prescription Opioid Use livan Prescriptions: - Cipro 250 mg Oral Tablet - take 1 tablet by ORAL route every 12 hours; 14 tablet; Refills: 0, Product livan Selection Permitted Signatures: Dispatcher [employer] EDMS Dragan Cabral MD MD cha Ebrottie, Kouassi, RN RN ke1 Shayna Arreguin PA PA sb3 Corrections: (The following items were deleted from the chart) 10/06 20:28 20:26 PSHx: Mastoidectomy; ericka barnett 10/07 00:21 10/06 23:42 URINALYSIS+U.LAB.BRZ ordered. EDMS EDMS
--- NOTE | 2021-10-06 23:55 | ER ---
Nurse's Notes [facility] Name: Shad Swift Age: 66 yrs Sex: Female : 1955 Arrival Date: 10/06/2021 Time: 20:18 Bed 16 Private MD: Diagnosis: Chronic pain syndrome;USP (current) use of opiate analgesic;Dyspnea-RESOLVED;Type 1 diabetes mellitus with hyperglycemia;UTI/ Urinary tract infection, site not specified Presentation: 10/06 20:20 Chief complaint: EMS states: Toned out of difficulty breathing, patient took naloxone ke1 by mistake thinking it was nose spray for sinuses and end up having tremors. Coronavirus screen: Vaccine status: Patient reports receiving the 2nd dose of the covid vaccine. Ebola Screen: No symptoms or risks identified at this time. Initial Sepsis Screen: Does the patient meet any 2 criteria? No. Patient's initial sepsis screen is negative. Does the patient have a suspected source of infection? No. Patient's initial sepsis screen is negative. Risk Assessment: Do you want to hurt yourself or someone else? Patient reports no desire to harm self or others. Onset of symptoms was October 06, 2021 at 19:10. 20:20 Method Of Arrival: EMS ke1 20:20 Acuity: S[place] 3 ke1 20:28 Care prior to arrival: Medication(s) given: zofran 4 mg, benadryl 50 mg. ke1 Triage Assessment: 20:29 General: Appears uncomfortable, Behavior is appropriate for age. Pain: Complains of ke1 pain in back Pain does not radiate. Pain currently is 8 out of 10 on a pain scale. at worst was 10 out of 10 on a pain scale. level that patient reports is acceptable is 5 out of 10 on a pain scale. Quality of pain is described as aching. 20:34 Respiratory: Onset: The symptoms/episode began/occurred the patient reports symptoms ke1 have resolved. 20:47 Respiratory: Reports difficulty breathing resolved at home. ke1 Historical: - Allergies: 20:26 adhesive tape; ke1 20:26 Clindamycin; ke1 - PMHx: 20:26 chronic back pain; Diabetes - IDDM; High Cholesterol; ke1 - PSHx: 20:26 back SX x2; Hysterecomy; mastectomy; ke1 - Immunization history:: Client reports receiving the 2nd dose of the Covid vaccine. - Social history:: Smoking status: Patient reports the use of cigarette tobacco products, smokes one pack cigarettes per day. Screenin:28 Abuse screen: Denies threats or abuse. Nutritional screening: No deficits noted. ke1 Tuberculosis screening: No symptoms or risk factors identified. Fall Risk No fall in past 12 months (0 pts). No secondary diagnosis (0 pts). No IV (0 pts). Ambulatory Aid- None/Bed Rest/Nurse Assist (0 pts). Gait- Normal/Bed Rest/Wheelchair (0 pts) Mental Status- Oriented to own ability (0 pts). Total Deleon Fall Scale indicates No Risk (0-24 pts). Assessment: 20:33 Cardiovascular: Rhythm is sinus tachycardia. Respiratory: Airway is patent Trachea ke1 midline Respiratory effort is even, unlabored, Respiratory pattern is regular, symmetrical, Breath sounds are clear bilaterally. Vital Signs: 20:20 BP 158 / 100; Pulse 107; Resp 22; Temp 99.8(O); Pulse Ox 69% ; Weight 80.74 kg; Height ke1 5 ft. 2 in. (157.48 cm); Pain 8/10; 22:07 BP 126 / 65; Pulse 82; Resp 15; Pulse Ox 94% on R/A; Pain 0/10; ke1 22:23 BP 105 / 67 Supine; Pulse 83; Pulse Ox 95% on R/A; ke1 22:26 BP 127 / 68 Sitting; Pulse 84; Pulse Ox 95% ; ke1 23:29 BP 141 / 94 Standing; Pulse 98; Pulse Ox 94% on R/A; ke1 20:20 Body Mass Index 32.56 (80.74 kg, 157.48 cm) ke1 ED Course: 20:18 Patient arrived in ED. wm 20:20 Gama Orona, STARLA is Primary Nurse. ke1 20:22 Dragan Cabral MD is Attending Physician. livan 20:26 Triage completed. ke1 20:30 Maintain EMS IV. Site clean \T\ dry. Gauge \T\ site: 20 G L hand. ke 1 20:34 Arm band placed on. ke1 20:34 Bed in low position. Call light in reach. Side rails up X 1. Side rails up X2. ke1 21:36 Flu Sent. ke1 21:36 SARS RAPID Sent. ke1 21:43 XRAY Chest (1 view) In Process Unspecified. EDMS 10/07 00:41 No provider procedures requiring assistance completed. IV discontinued. ke1 Administered Medications: 10/06 20:58 Drug: fentaNYL (PF) 25 mcg Route: IVP; Site: left hand; ke1 21:30 Follow up: Response: Marked relief of symptoms; Marked relief of symptoms, patient not ke1 shaking anymore, tremors improved 21:11 Drug: Zofran (Ondansetron) 4 mg Route: IVP; Site: left hand; ke1 21:41 Follow up: Response: No adverse reaction; No adverse reaction no nausea ke1 21:25 Not Given (Duplicate Order): fentaNYL (PF) 25 mcg IVP once ke1 22:35 Drug: Magnesium Sulfate 2 grams Route: IVPB; Infused Over: 2 hrs; Site: left hand; ke1 10/07 00:49 Follow up: IV Status: Completed infusion ke1 10/06 23:55 Drug: Rocephin (cefTRIAXone) 1 grams Route: IV; Rate: per protocol; Site: left hand; ke1 10/07 00:00 Follow up: Response: No adverse reaction; IV Status: Completed infusion ke1 10/06 23:55 Drug: Cipro (ciprofloxacin) 500 mg Route: PO; ke1 10/07 00:48 Follow up: Response: No adverse reaction ke1 Medication: 00:47 VIS not applicable for this client. ke1 Outcome: 10/06 23:54 Discharge ordered by . livan 10/07 00:41 Discharged to home via wheelchair. ke1 Condition: good Discharge instructions given to patient. 00:49 Patient left the ED. ke1 Addendum: 10/09/2021 07:37 Addendum: Culture Results: Positive urine culture. No further action required. Bacteria e b sensitive to prescribed antibiotic. Signatures: Dispatcher [employer] EDMS Dragan Cabral MD MD cha Botello, Elizabeth eb Marsh, Wendy wm Ebrottie, Kouassi, RN RN ke1 Corrections: (The following items were deleted from the chart) 10/06 20:28 20:26 PSHx: Mastoidectomy; ke1 ke1 20:33 20:20 Chief complaint: EMS states: Toned out of difficulty breathing, patient took ke1 naloxone by mistake thinking it was nose spray for sinuses and end up having tremors ke1
[2021-10-07 00:01] LABS: Specific Gravity 1.025 (1.005-1.030); Urine Bilirubin Negative (Negative); Urine Blood Trace-lysed (Negative); Urine Clarity Cloudy (Clear); Urine Color Yellow (Yellow); Urine Glucose 2+ (Negative); Urine Protein Negative (Negative); Urine Urobilinogen 0.2 mg/dL (0.2-1.0); Urine pH 5.5 (5.0-7.0)
[2021-10-07] MEDS ORDERED: CIPROFLOXACIN HCL 500 MG TAB ONE (00:01)
[2021-10-07] MEDS ORDERED: CEFTRIAXONE 1000 MG/VIAL ONE (00:01)
[2021-10-07] MEDS ORDERED: NA CHLORIDE 0.9% 50 ML ONE (00:02)
[2021-10-07 00:22] LABS: Urine Bacteria Loaded /HPF (<20); Urine Mucus 1+ /HPF (None Seen)
[2021-10-07 02:34] VITALS: TEMP 99.8
[2021-10-07 02:46] VITALS: BP 141/94; O2SAT 94
--- NOTE | 2021-10-08 15:22 | EKG ---
Test Date: 2021-10-06 Test Time: 21:20:52 Sports Cartoonist: SHWETA MEASUREMENT RESULTS: Intervals: Rate: 84 TX: 120 QRSD: 84 QT: 380 QTc: 449 [place]: P: 74 TX: 120 QRS: -86 T: 91 INTERPRETIVE STATEMENTS: Sinus rhythm with premature supraventricular complexes with occasional premature ventricular complexes Left axis deviation RSR' or QR pattern in V1 suggests right ventricular conduction delay Anterior infarct, age undetermined Abnormal ECG Compared to ECG 07/21/2021 13:42:55 Atrial premature complex(es) now present Ventricular premature complex(es) now present Left-axis deviation now present RSR' in V1 or V2 now present Right superior axis no longer present Right ventricular hypertrophy no longer present Myocardial infarct finding still present Electronically Signed On 10-08-21 15:19:26 CDT by Hans Pérez
== END 2021-10-07 00:49 | disposition home or self-care (01) ==
LOC: ER 20:15
DX: G89.4 Chronic pain syndrome (principal); N39.0 Urinary tract infection, site not specified; E10.65 Type 1 diabetes mellitus with hyperglycemia; Z79.891 Long term (current) use of opiate analgesic; F17.210 Nicotine dependence, cigarettes, uncomplicated; Z88.3 Allergy status to other anti-infective agents; Z91.048 Other nonmedicinal substance allergy status; Z20.822 Contact with and (suspected) exposure to COVID-19
CPT/HCPCS: 96365; 93005; 87088; 85025; 81001; 87086; 80048; 36415; 83735; 85610; 80076; 87077; 87186; 81003 ×2; 84484; 83880; 87804 ×2; 71045; 96375; 99284; 96366; 87811; J3475; J2405

== ENCOUNTER 2022-01-11 06:31 | Day surgery (SDC) | payer OTHER ==
[2022-01-10 12:04] LABS: Absolute Lymphocytes (CBC) 3.2 K/uL (0.7-4.9); Lymphocytes % 28.7 % (15.3-44.8); MCV 87.1 fL (80-100); MPV 9.1 fL (7.6-11.3); RBC Red Blood Cell Count 5.29 M/uL (3.86-4.86)
[2022-01-10 12:20] LABS: Potassium 3.9 mmol/L (3.5-5.1)
[2022-01-11] MEDS ORDERED: NA CHLORIDE 0.9% 1,000 ML ONE (06:55)
[2022-01-11] MEDS ORDERED: propofoL 200 MG/20 ML VIAL IV ONE (07:24)
[2022-01-11] MEDS ORDERED: LIDOCAINE 1% MPF 5 ML VIAL ONE (07:24)
[2022-01-11] MEDS ORDERED: FENTANYL CITR 100 MCG/2 ML ONE (07:24)
[2022-01-11] MEDS ORDERED: MIDAZOLAM HCL 2 MG/2 ML INJ ONE (07:25)
[2022-01-11] MEDS ORDERED: CEFAZOLIN SODIUM 1 GM/VIAL ONE (07:36)
--- NOTE | 2022-01-11 08:24 | P.BOP ---
Preoperative diagnosis: Breast cancer, Chest wall subQ mass Postoperative diagnosis: same Primary procedure: Excisional biopsy of Chest wall subQ mass 3 x 2 cm Estimated blood loss: <10cc Specimen: mass Findings: not attached to muscle or bone Anesthesia: General Complications: None Transferred to: Recovery Room Condition: Good
[2022-01-11] MEDS: HYDROMORPHONE HCL 1 MG/ML INJ ONE ×3 (08:30→08:45)
[2022-01-11 10:03] VITALS: TEMP 97.5
[2022-01-11 10:06] VITALS: BP 136/65; O2SAT 97
--- NOTE | 2022-01-11 19:39 | OP ---
Date of Procedure: 01/11/2022 Surgeon: Thad Anderson MD Preoperative Diagnoses: Breast cancer, status post bilateral mastectomy and a chest wall palpable nuñez bcutaneous mass. Postoperative Diagnoses: Breast cancer, status post bilateral mastectomy and a chest wall palpable s ubcutaneous mass. Procedure: Excisional biopsy of palpable chest wall subcutaneous mass, 3 x 2 cm. Estimated Blood Loss: Less than 10 cc. Specimen: Mass. Findings: Patient has mass on the subcutaneous tissue, but it does not include the muscle or the bon e in that region. Patient has previous history of mastectomy in that area. Complications: None. Indications: This is a case of a female with history of bilateral mastectomy after found to have ernesto ast cancer. She shows a new lesion on the chest wall and the oncologist noted that this is new and t hey wanted that excised. Excision biopsy of that mass fully explained to the patient which include, but not limited to, infection, bleeding, damage to adjacent structures, anesthesia complication, recu rrence, SD, and even . She also understands this may not relieve any of symptoms. She might ne ed more than one surgical intervention. She was encouraged once again to continue surveillance of he r chest wall flaps. She understands the importance of following up with her oncologist after this bi opsy was done. Description Of Procedure: Patient was brought to the operating room, placed in supine position. Ane sthesia was done without complication. Previously, we marked the area of concern by me and the patie nt in the holding room. So, after time-out, we proceeded to make an incision in that area to include the skin that was just on top, although does not seem to be grossly involved. The subcutaneous mass was removed, and it does not seem to be attached to muscle or bone. Mass was completely excised and then we proceeded to close this after hemostasis and local anesthetic was applied. We proceeded to close this with 3-0 chromic and parul. Patient tolerated the procedure well. Sponge count and ins trument counts were correct. Patient sent to Recovery in stable condition. ELENITA/MODL Voice ID: [id number] Report ID: [id number]
--- NOTE | 2022-01-11 19:51 | DS ---
Date of Discharge: 01/11/2022 Diagnosis: Breast cancer. Chest wall subcutaneous mass. Procedure: Excisional biopsy of chest wall subcutaneous mass, 3 x 2 cm. Surgeon: Thad Anderson M.D. Disposition: Home. Activity: As tolerated. No heavy lifting. Followup: In my office in 1 week. Call for appointment at [phone]. Keep area dry for 48 hours and may shower. ELENITA/CASS Voice ID: [id number] Report ID: [id number]
--- NOTE | 2022-01-11 20:39 | OP ---
Date of Procedure: 01/11/2022 Surgeon: Thad Anderson MD Preoperative Diagnosis: Breast cancer, status post bilateral mastectomy with a chest wall nontender, subcutaneous mass on the right chest. Postoperative Diagnosis: Breast cancer, status post bilateral mastectomy with a chest wall nontender , subcutaneous mass on the right chest. Procedure: Excisional biopsy of chest wall nontender subcutaneous mass, 3 x 2 cm. Specimen: Mass. Findings: Mass does not seem to be attached to muscle or bone. Anesthesia: General plus local. Indications: This is the case of a 66-year-old patient with history of breast cancer, status post bi lateral mastectomy. DICTATION ENDS HERE ELENITA/CASS Voice ID: [id number] Report ID: [id number]
== END 2022-01-11 09:50 | disposition home or self-care (01) ==
LOC: OR 06:31
PROVIDERS: ATTEND Surgery
PROC: 0JB60ZZ Excision of Chest Subcutaneous Tissue and Fascia, Open Approach (ICD-10-PCS; principal; 2022-01-11 07:30)
DX: R22.2 Localized swelling, mass and lump, trunk (principal); Z85.3 Personal history of malignant neoplasm of breast; E11.9 Type 2 diabetes mellitus without complications; J45.909 Unspecified asthma, uncomplicated; E78.00 Pure hypercholesterolemia, unspecified; K21.9 Gastro-esophageal reflux disease without esophagitis; F41.9 Anxiety disorder, unspecified; G89.29 Other chronic pain; F17.210 Nicotine dependence, cigarettes, uncomplicated
CPT/HCPCS: 85025; 80048; 36415; 82947 ×2; 88304; 11403; J2704; J2001; J2250; J3010; J1170; J7030; J0690

== ENCOUNTER 2023-01-01 14:00 | Emergency (ER) | payer OTHER ==
--- OUTSIDE RECORDS SUMMARY | 2023-01-01 14:02 | XMS REPORT | Continuity of Care Document ---
:1955 Author Organization [facility] t Address [address] [facility] [address] [place] [id number] Care Team Providers Name Role Phone Sergey-Mbayo_A_AH Attending Clinician Unavailable Sergey-Mbayo_A_AH Admitting Clinician Unavailable Payers Payer Name Policy Type Policy Number Effective Date Expiration Date S abena [facility] [place] - [id number] 2019 [employer] 00:00:00 (MEDICARE REPLACEMENT/ADVANT AGE - [...] 2019-04-02 Outpatient Sergey-Mbayo VFP VFP [phone] [facility] 07:19:00 07:19:00 _A_AH [id number] Family Practic e 2019-04-02 2019-04-02 Outpatient Sergey-Mbayo VFP VFP [phone] [facility] 07:19:00 07:19:00 _A_AH [id number] Family Practic e Results This patient has no known results.
[2023-01-01 14:56] LABS: Absolute Lymphocytes (CBC) 3.4 K/uL (0.7-4.9); Hematocrit 45.8 % (36.0-45.0); Lymphocytes % 24.4 % (15.3-44.8); Platelets 188 thou/uL (152-406); RBC Red Blood Cell Count 5.15 M/uL (3.86-4.86)
[2023-01-01] MEDS ORDERED: MORPHINE 4 MG/ML SYR ONE (15:08)
[2023-01-01] MEDS ORDERED: ONDANSETRON 4 MG/2 ML VIAL ONE (15:08)
[2023-01-01 15:12] LABS: Albumin 3.5 g/dL (3.4-5.0); Bilirubin Total 0.5 mg/dL (0.2-1.0); Potassium 4.7 mEq/L (3.5-5.1); Protein, Total 7.1 g/dL (6.4-8.2)
[2023-01-01] MEDS ORDERED: DIPHENHYDRAMINE 50 MG/ML VIAL ONE (15:21)
--- NOTE | 2023-01-01 15:51 | RAD REPORT ---
EXAM DESCRIPTION: CTAbdomen Pelvis W Contrast - 01/01/2023 3:30 pm CLINICAL HISTORY: Abdominal pain. llq pain COMPARISON: Abdomen Pelvis W Contrast dated 09/02/2015; CT ABD PELVIS W CONTRAST dated 01/26/2014; CT ABD PELVIS W CONTRAST dated 01/24/2014; CT ABD PELVIS W CONTRAST dated 09/08/2013; BREAST/AXILLA, C OMPLETE dated 12/02/2021; Abdomen W Contrast dated 10/29/2020 TECHNIQUE: Biphasic CT imaging of the abdomen and pelvis was performed with 100 ml non-ionic IV cont rast. All CT scans are performed using dose optimization technique as appropriate and may include automated exposure control or mA/KV adjustment according to patient size. FINDINGS: The lung bases are clear. Mild diffuse fatty liver is seen. There are multiple small liver lesions present, largest measuring 1 0 mm. These most likely are related to metastatic disease. There is an irregular mass involving the body of the pancreas measuring approximately 4.4 x 4.4 cm. T his mass significantly narrows the celiac axis, splenic vein an portions of the portal vein. This is likely pancreatic neoplasia. The spleen, adrenal glands and kidneys are within normal limits. Sigmoid diverticulosis coli is prese nt without evidence of diverticulitis. Moderate stool is present throughout the colon. Numerous smal l enlarged lymph nodes are seen para- aortic and root of the small bowel mesentery location. Postoperative changes are present lumbar spine with hardware in place. IMPRESSION: Findings are most likely related to pancreatic neoplasia with liver metastases.
--- NOTE | 2023-01-01 16:59 | ER ---
Nurse's Notes [facility] Name: Shad Swift Age: 67 yrs Sex: Female : 1955 Arrival Date: 01/01/2023 Time: 14:00 Bed 16 Private MD: Diagnosis: Pancreatic mass Presentation: 01/01 14:17 Chief complaint: Intermittent left sided flank pain, left abdominal swelling, and hb nausea x 1 month. Coronavirus screen: At this time, the client does not indicate any symptoms associated with coronavirus-19. Ebola Screen: No symptoms or risks identified at this time. Initial Sepsis Screen: Does the patient meet any 2 criteria? No. Patient's initial sepsis screen is negative. Does the patient have a suspected source of infection? No. Patient's initial sepsis screen is negative. Risk Assessment: Do you want to hurt yourself or someone else? Patient reports no desire to harm self or others. Onset of symptoms was November 2022. 14:17 Method Of Arrival: Wheelchair hb 14:17 Acuity: SAGR[place] 3 hb Historical: - Allergies: 14:18 adhesive tape; hb 14:18 Clindamycin; hb - PMHx: 14:18 chronic back pain; Diabetes - IDDM; High Cholesterol; hb - PSHx: 14:18 back SX x2; Hysterecomy; mastectomy; hb - Immunization history:: Adult Immunizations up to date. - Social history:: Smoking status: Patient reports the use of cigarette tobacco products, smokes one-half pack cigarettes per day. - Family history:: not pertinent. Screenin:36 [facility] ED Fall Risk Assessment (Adult) History of falling in the last 3 months, db including since admission No falls in past 3 months (0 pts) Confusion or Disorientation No (0 pts) Intoxicated or Sedated No (0 pts) Impaired Gait No (0 pts) Mobility Assist Device Used No (0 pt) Altered Elimination No (0 pt) Score/Fall Risk Level 0 - 2 = Low Risk Oriented to surroundings, Maintained a safe environment. Abuse screen: Denies threats or abuse. Denies injuries from another. Nutritional screening: No deficits noted. Tuberculosis screening: No symptoms or risk factors identified. Assessment: 15:10 Reassessment: pt left arm appears red and itchy after morphine admin, Dr. Fagan iw notified, verbal order for Benadryl. 15:37 Reassessment: Patient appears in no apparent distress at this time. PT RETURNED TO ROOM db FROM CT. 16:00 Reassessment: Patient appears in no apparent distress at this time. Patient and/or db family updated on plan of care and expected duration. Pain level reassessed. Patient is alert, oriented x 3, equal unlabored respirations, skin warm/dry/pink. General: Appears in no apparent distress. comfortable, Behavior is calm, cooperative. Pain: Complains of pain in abdomen, RIGHT SIDE. Neuro: Level of Consciousness is awake, alert, obeys commands, Oriented to person, place, time, situation, Speech is normal, Facial symmetry appears normal. Respiratory: Airway is patent Respiratory effort is even, unlabored, Respiratory pattern is regular, symmetrical. GI: Bowel sounds present X 4 quads. Abd is soft and non tender. 17:00 Reassessment: Patient appears in no apparent distress at this time. Patient and/or db family updated on plan of care and expected duration. Pain level reassessed. Patient is alert, oriented x 3, equal unlabored respirations, skin warm/dry/pink. 18:52 Reassessment: CALLED [facility] 9 TO GIVE PT REPORT. NURSE DID NOT ANSWER FOR db REPORT. 18:55 Reassessment: Patient appears in no apparent distress at this time. Patient and/or db family updated on plan of care and expected duration. Pain level reassessed. Patient is alert, oriented x 3, equal unlabored respirations, skin warm/dry/pink. Patient states feeling better. Patient states symptoms have improved. General: Appears in no apparent distress. comfortable, Behavior is calm, cooperative. 19:20 Reassessment: Patient appears in no apparent distress at this time. No changes from jw7 previously documented assessment. Patient and/or family updated on plan of care and expected duration. Pain level reassessed. Patient is alert, oriented x 3, equal unlabored respirations, skin warm/dry/pink. 19:25 General: c/o continued pain, provider notified . jw7 19:27 General: attempted to call report to [facility], no answer. jw7 20:30 Reassessment: Patient appears in no apparent distress at this time. No changes from jw7 previously documented assessment. Patient and/or family updated on plan of care and expected duration. Pain level reassessed. Patient is alert, oriented x 3, equal unlabored respirations, skin warm/dry/pink. Vital Signs: 14:17 BP 119 / 80; Pulse 53; Resp 16; Temp 98.7(TE); Pulse Ox 99% on R/A; Weight 74.84 kg; hb Height 5 ft. 8 in. ; Pain 8/10; 15:43 BP 139 / 80; Pulse 80; Resp 18; Pulse Ox 97% on R/A; db 17:00 BP 120 / 83; Pulse 98; Resp 18; Pulse Ox 96% on R/A; db 17:30 BP 132 / 59; Pulse 81; Resp 16; Pulse Ox 97% on R/A; db 18:30 BP 136 / 86; Pulse 79; Resp 16; Pulse Ox 95% on R/A; db 19:30 BP 105 / 56; Pulse 68; Resp 17 S; Pulse Ox 95% on R/A; jw7 20:30 BP 108 / 69; Pulse 73; Resp 16 S; Pulse Ox 95% on R/A; jw7 14:17 Body Mass Index 25.09 (74.84 kg, 172.72 cm) hb 14:17 Pain Scale: Adult hb ED Course: 14:02 Patient arrived in ED. im 14:11 Cresencio Fagan MD is Attending Physician. rt 14:18 Triage completed. hb 14:19 Arm band placed on. hb 14:47 Inserted saline lock: 22 gauge in left forearm, using aseptic technique. Blood iw collected. 15:09 Olga Shen, STARLA is Primary Nurse. iw 15:31 CT Abd/Pelvis - IV Contrast Only In Process Unspecified. EDMS 15:36 Patient has correct armband on for positive identification. Bed in low position. Call db light in reach. Side rails up X 1. 15:37 Client placed on continuous cardiac and pulse oximetry monitoring. NIBP monitoring db applied. 18:55 No provider procedures requiring assistance completed. db 18:59 1637 Called to start transfer to [facility] [address] Dr. Ryann Alvarez accepted pt 1830 sp Zuri Gonzalez, STARLA admin approval to [facility]' report number [phone] 9 [place] 911 yellow elevator. 20:00 EMS denied transport, no truck available per [place]. wm 20:00 [facility] accepted for transport with ETA \T\ 2100. wm 20:57 Provided Education on: need for transfer. jw7 20:57 Patient transferred, IV remains in place. jw7 Administered Medications: 14:50 Drug: Ondansetron IVP 4 mg IVP once; over 2 minutes Route: IVP; Site: left antecubital; iw 19:18 Follow up: Response: No adverse reaction jw7 14:56 Drug: morphine IVP or IV 4 mg IVP once over 4 mins Route: IVP; Infused Over: 4 mins; iw Site: left antecubital; 15:05 Follow up: Response: Adverse reaction, Physician notified iw 15:12 Drug: diphenhydrAMINE IVP 25 mg IVP once Route: IVP; Site: left antecubital; iw 19:18 Follow up: Response: No adverse reaction jw7 16:45 Drug: HYDROmorphone IVP 1 mg IVP once Route: IVP; Site: left antecubital; db 19:19 Follow up: Response: No adverse reaction jw7 19:39 Drug: HYDROmorphone IVP 1 mg IVP once Route: IVP; Site: left forearm; jw7 20:57 Follow up: Response: No adverse reaction jw7 20:58 Drug: HYDROmorphone IVP 0.5 mg IVP once Route: IVP; Site: left forearm; jw7 20:58 Follow up: Response: No adverse reaction jw7 Medication: 18:28 VIS not applicable for this client. db Outcome: 16:58 ER care complete, transfer ordered by . rt 20:57 Transferred by ground EMS to [facility], [facility], jw7 20:57 Condition: stable 20:57 Instructed on the need for transfer, Demonstrated understanding of instructions, 20:59 Patient left the ED. jw7 Signatures: Dispatcher [employer] EDMS Meron Vides Irene, RN RN Sameera Ochoa RN RN hb Marsh, Wendy Sandra Lebron RN RN jw7 Radha Hawthorne RN RN db [place], Ryan, MD MD rt Holli Gaston im Corrections: (The following items were deleted from the chart) 14:19 14:18 Social history: Smoking status: Patient denies any tobacco usage or history of. hbhb 15:37 14:00 Client placed on continuous cardiac and pulse oximetry monitoring. NIBP db monitoring applied. db 16:00 15:00 BP 122 / 83; Pulse 83bpm; Resp 18bpm; Pulse Ox 97% RA; db db 16:00 14:00 BP 119 / 93; Pulse 72bpm; Resp 18bpm; Pulse Ox 99% RA; db db 16:00 13:04 BP 128 / 80; Pulse 73bpm; Resp 18bpm; Pulse Ox 97% RA; db db 19:00 18:52 Reassessment: CALLED [place] [id number] TO GIVE PT REPORT db db 19:57 19:40 Reassessment: Patient appears in no apparent distress at this time. No changes jw7 from previously documented assessment. Patient and/or family updated on plan of care and expected duration. Pain level reassessed. Patient is alert, oriented x 3, equal unlabored respirations, skin warm/dry/pink. jw7
--- NOTE | 2023-01-01 16:59 | EDPHYS ---
Physician Documentation [facility] Name: Shad Swift Age: 67 yrs Sex: Female : 1955 Arrival Date: 01/01/2023 Time: 14:00 Bed 16 Private MD: ED Physician Cresencio Fagan HPI: 01/01 15:14 This 67 yrs old Female presents to ER via Wheelchair with complaints of Abdominal Pain. rt 15:14 Patient presents to the ED with a left lower quadrant pain. The patient states that she rt has had some discomfort for about a month, significantly worsening over the past several days. Pain radiates laterally. Denies nausea, vomiting, constipation, diarrhea, hematemesis, urinary symptoms. Symptoms are moderate in severity, no other aggravating or alleviating factors.. Historical: - Allergies: 14:18 adhesive tape; hb 14:18 Clindamycin; hb - PMHx: 14:18 chronic back pain; Diabetes - IDDM; High Cholesterol; hb - PSHx: 14:18 back SX x2; Hysterecomy; mastectomy; hb - Immunization history:: Adult Immunizations up to date. - Social history:: Smoking status: Patient reports the use of cigarette tobacco products, smokes one-half pack cigarettes per day. - Family history:: not pertinent. ROS: 15:14 Constitutional: Negative for fever, chills, and weight loss, Cardiovascular: Negative rt for chest pain, palpitations, and edema, Respiratory: Negative for shortness of breath, cough, wheezing, and pleuritic chest pain, MS/Extremity: Negative for injury and deformity, Skin: Negative for injury, rash, and discoloration, Neuro: Negative for headache, weakness, numbness, tingling, and seizure, Psych: Negative for depression, anxiety, suicide ideation, homicidal ideation, and hallucinations, 15:14 Abdomen/GI: Positive for abdominal pain, Negative for nausea, vomiting, and diarrhea, Exam: 15:14 Constitutional: This is a well developed, well nourished patient who is awake, alert, rt and in no acute distress. Head/Face: Normocephalic, atraumatic. Chest/axilla: Normal chest wall appearance and motion. Nontender with no deformity. No lesions are appreciated. Cardiovascular: Regular rate and rhythm with a normal S1 and S2. No gallops, murmurs, or rubs. Normal PMI, no JVD. No pulse deficits. Respiratory: Lungs have equal breath sounds bilaterally, clear to auscultation and percussion. No rales, rhonchi or wheezes noted. No increased work of breathing, no retractions or nasal flaring. Skin: Warm, dry with normal turgor. Normal color with no rashes, no lesions, and no evidence of cellulitis. MS/ Extremity: Pulses equal, no cyanosis. Neurovascular intact. Full, normal range of motion. Neuro: Awake and alert, GCS 15, oriented to person, place, time, and situation. Cranial nerves II-XII grossly intact. Motor strength 5/5 in all extremities. Sensory grossly intact. Cerebellar exam normal. Normal gait. Psych: Awake, alert, with orientation to person, place and time. Behavior, mood, and affect are within normal limits. 15:14 Abdomen/GI: Tenderness to the left lower quadrant, with guarding, no rebound, no distention, Vital Signs: 14:17 BP 119 / 80; Pulse 53; Resp 16; Temp 98.7(TE); Pulse Ox 99% on R/A; Weight 74.84 kg; hb Height 5 ft. 8 in. ; Pain 8/10; 15:43 BP 139 / 80; Pulse 80; Resp 18; Pulse Ox 97% on R/A; db 17:00 BP 120 / 83; Pulse 98; Resp 18; Pulse Ox 96% on R/A; db 17:30 BP 132 / 59; Pulse 81; Resp 16; Pulse Ox 97% on R/A; db 18:30 BP 136 / 86; Pulse 79; Resp 16; Pulse Ox 95% on R/A; db 19:30 BP 105 / 56; Pulse 68; Resp 17 S; Pulse Ox 95% on R/A; jw7 20:30 BP 108 / 69; Pulse 73; Resp 16 S; Pulse Ox 95% on R/A; jw7 14:17 Body Mass Index 25.09 (74.84 kg, 172.72 cm) hb 14:17 Pain Scale: Adult hb MDM: 14:28 Patient medically screened. rt 20:10 Differential diagnosis: Mesenteric ischemia or infarction, Mass, diverticulitis, bowel rt obstruction. Data reviewed: vital signs, nurses notes, lab test result(s), EKG, radiologic studies. Consideration of Admission/Observation Escalation of care including admission/observation considered. Management of patient was discussed with the following: Outdoor Adventure Leader: Discussed with accepting medical social worker and hospitalist.. I considered the following discharge prescriptions or medication management in the emergency department Medications were administered in the Emergency Department. See MAR. Independent interpretation of the following test(s) in the Emergency Department CT Scan: My interpretation is Metastatic disease in the liver seen on interpretation of CT scan images. Care significantly affected by the following chronic conditions: Diabetes, Hypertension. Counseling: I had a detailed discussion with the patient and/or guardian regarding the historical points, exam findings, and any diagnostic results supporting the discharge/admit diagnosis, lab results, radiology results, the need to transfer to another facility. 01/01 14:35 Order name: CBC with Diff; Complete Time: 15:04 rt 01/01 14:35 Order name: CMP; Complete Time: 15:14 rt 01/01 14:35 Order name: Lipase; Complete Time: 15:14 rt 01/01 14:35 Order name: CT Abd/Pelvis - IV Contrast Only; Complete Time: 15:52 rt 01/01 14:35 Order name: IV Saline Lock; Complete Time: 14:48 rt 01/01 14:35 Order name: Labs collected and sent; Complete Time: 14:48 rt Administered Medications: 14:50 Drug: Ondansetron IVP 4 mg IVP once; over 2 minutes Route: IVP; Site: left antecubital; iw 19:18 Follow up: Response: No adverse reaction jw7 14:56 Drug: morphine IVP or IV 4 mg IVP once over 4 mins Route: IVP; Infused Over: 4 mins; iw Site: left antecubital; 15:05 Follow up: Response: Adverse reaction, Physician notified iw 15:12 Drug: diphenhydrAMINE IVP 25 mg IVP once Route: IVP; Site: left antecubital; iw 19:18 Follow up: Response: No adverse reaction jw7 16:45 Drug: HYDROmorphone IVP 1 mg IVP once Route: IVP; Site: left antecubital; db 19:19 Follow up: Response: No adverse reaction jw7 19:39 Drug: HYDROmorphone IVP 1 mg IVP once Route: IVP; Site: left forearm; jw7 20:57 Follow up: Response: No adverse reaction jw7 20:58 Drug: HYDROmorphone IVP 0.5 mg IVP once Route: IVP; Site: left forearm; jw7 20:58 Follow up: Response: No adverse reaction jw7 Disposition Summary: 01/01/23 16:58 Transfer Ordered Notes: Transfer Location: [facility] rt Reason: Higher level of care rt Condition: Fair rt Problem: new rt Symptoms: are unchanged rt Accepting Physician: (01/01/23 20:59) jw7 Diagnosis - Pancreatic mass rt Forms: - Medication Reconciliation Form rt - SBAR form rt Signatures: Dispatcher [employer] EDOlga Dowell RN RN iw Sameera Ochoa RN Sandra Juares RN RN jw7 Radha Hawthorne RN Cresencio Tracey MD MD rt Corrections: (The following items were deleted from the chart) 14:19 14:18 Social history: Smoking status: Patient denies any tobacco usage or history of. [facility] 20:59 16:58 rt jw7
[2023-01-01] MEDS ORDERED: HYDROMORPHONE HCL 1 MG/ML INJ ONE ×2 (17:04→19:48)
[2023-01-01] MEDS ORDERED: HYDROMORPHONE HCL 0.5 MG/0.5 ML INJ ONE (21:04)
[2023-01-01 21:39] VITALS: TEMP 98.7
[2023-01-01 21:47] VITALS: O2SAT 95
[2023-01-01 21:50] VITALS: BP 108/69
== END 2023-01-01 20:59 | disposition short-term general hospital (02) ==
LOC: ER 14:00
DX: K86.9 Disease of pancreas, unspecified (principal); E11.9 Type 2 diabetes mellitus without complications; F17.210 Nicotine dependence, cigarettes, uncomplicated; Z88.1 Allergy status to other antibiotic agents; Z91.048 Other nonmedicinal substance allergy status
CPT/HCPCS: 85025; 36415; 83690; 80053; 74177; 99285; Q9967; J1200; J1170 ×3; J2405

== ENCOUNTER 2023-01-17 15:48 | Emergency (ER) | payer OTHER ==
[2023-01-17 17:12] LABS: Absolute Lymphocytes (CBC) 3.2 K/uL (0.7-4.9); Hematocrit 46.2 % (36.0-45.0); Lymphocytes % 21.9 % (15.3-44.8); MCV 88.8 fL (80-100); MPV 9.2 fL (7.6-11.3); Platelets 190 thou/uL (152-406); RBC Red Blood Cell Count 5.21 M/uL (3.86-4.86)
[2023-01-17] MEDS ORDERED: ONDANSETRON 4 MG/2 ML VIAL ONE ×2 (17:22→20:58)
[2023-01-17] MEDS ORDERED: HYDROMORPHONE HCL 1 MG/ML INJ ONE ×4 (17:22→23:34)
[2023-01-17 17:41] LABS: Albumin 3.5 g/dL (3.4-5.0); Bilirubin Total 0.6 mg/dL (0.2-1.0); Potassium 3.8 mEq/L (3.5-5.1); Protein, Total 7.5 g/dL (6.4-8.2)
[2023-01-17] MEDS ORDERED: KETAMINE HCL IN 0.9 % NACL 50 MG/5 ML SYRINGE IV ONE (18:15)
[2023-01-17] MEDS ORDERED: NA CHLORIDE 0.9% 50 ML ONE (18:15)
--- NOTE | 2023-01-17 20:45 | RAD REPORT ---
EXAM DESCRIPTION: CTAbdomen Pelvis W Contrast - 01/17/2023 8:34 pm CLINICAL HISTORY: Abdominal pain. ABD PAIN COMPARISON: Abdomen Pelvis W Contrast dated 01/01/2023; Abdomen Pelvis W Contrast dated 6; CT ABD PELVIS W CONTRAST dated 01/26/2014; CT ABD PELVIS W CONTRAST dated 01/24/2014 TECHNIQUE: Biphasic CT imaging of the abdomen and pelvis was performed with 100 ml non-ionic IV cont rast. All CT scans are performed using dose optimization technique as appropriate and may include automated exposure control or mA/KV adjustment according to patient size. FINDINGS: The lung bases are clear. There are multiple liver masses present which have mildly enlarged since comparative study likely rep resenting liver metastases. There is irregular mass body of the pancreas measuring approximately 4 cm with pancreatic ductal dilatation most compatible with pancreatic neoplasia. Small defects in the pe riphery of the spleen likely related small infarcts. The celiac axis appears occluded. Both adrenal glands and kidneys within normal limits. No bowel obstruction, free air, free fluid or abscess. Mild sigmoid diverticulosis coli without diver ticulitis. The appendix is not identified as a discrete structure, however, no secondary findings of appendicitis are identified. No evidence of significant lymphadenopathy. Postsurgical changes with hardware place lumbar spine. IMPRESSION: Findings seen most compatible with pancreatic neoplasia with hepatic metastatic disease. There is mild progression the hepatic metastatic deposits noted since prior study. Small defects in the periphery of the spleen likely infarcts.
[2023-01-17] MEDS ORDERED: METOPROLOL TARTRATE 5 MG/5 ML INJ IV ONE (21:40)
[2023-01-17 22:19] LABS: Troponin High Sensitivity 9.3 pg/mL (<58.9)
[2023-01-17 22:36] LABS: SARS-COV-2 RT PCR NEGATIVE (NEGATIVE)
--- NOTE | 2023-01-17 22:53 | ER ---
Nurse's Notes [facility] Name: Shad Swift Age: 67 yrs Sex: Female : 1955 Arrival Date: 01/17/2023 Time: 15:48 Bed 16 Private MD: Diagnosis: Intractable cancer pain, pancreatic mass, metastatic disease to the liver, intractable vomiting Presentation: 01/17 16:19 Chief complaint: Patient states: ABD PAIN FOR SEVERAL WEEKS. HX OF PANCREATIC CANCER. db Coronavirus screen: Client denies travel out of the [place] in the last 14 days. At this time, the client does not indicate any symptoms associated with coronavirus-19. Ebola Screen: Patient negative for fever greater than or equal to 101.5 degrees Fahrenheit, and additional compatible Ebola Virus Disease symptoms Patient denies exposure to infectious person. Patient denies travel to an Ebola-affected area in the 21 days before illness onset. No symptoms or risks identified at this time. Initial Sepsis Screen: Does the patient meet any 2 criteria? No. Patient's initial sepsis screen is negative. Does the patient have a suspected source of infection? No. Patient's initial sepsis screen is negative. Risk Assessment: Do you want to hurt yourself or someone else? Patient reports no desire to harm self or others. Onset of symptoms was January 05, 2023. 16:19 Method Of Arrival: Wheelchair db 16:19 Acuity: [place] 3 db Triage Assessment: 16:21 General: Appears in no apparent distress. uncomfortable, Behavior is calm, cooperative. db Pain: Complains of pain in abdomen. Pain: Complains of pain in back. Neuro: Level of Consciousness is awake, alert, obeys commands, Oriented to person, place, time, situation. GI: Abdomen is distended. Historical: - Allergies: 16:21 adhesive tape; db 16:21 Clindamycin; db - PMHx: 16:21 chronic back pain; Diabetes - IDDM; High Cholesterol; db - PSHx: 16:21 back SX x2; Hysterecomy; mastectomy; db - Immunization history:: Client reports receiving the 2nd dose of the Covid vaccine. - Social history:: Smoking status: Patient reports the use of cigarette tobacco products, smokes one-half pack cigarettes per day. - Family history:: not pertinent. Screenin:25 [facility] ED Fall Risk Assessment (Adult) History of falling in the last 3 months, rs5 including since admission No falls in past 3 months (0 pts) Confusion or Disorientation No (0 pts) Intoxicated or Sedated No (0 pts) Impaired Gait No (0 pts) Mobility Assist Device Used No (0 pt) Altered Elimination No (0 pt) Score/Fall Risk Level 0 - 2 = Low Risk Oriented to surroundings, Maintained a safe environment. Abuse screen: Denies threats or abuse. Nutritional screening: No deficits noted. Tuberculosis screening: No symptoms or risk factors identified. Assessment: 16:25 General: Appears distressed, uncomfortable, Behavior is cooperative. Pain: Complains of rs5 pain in abdomen Pain does not radiate. Pain currently is 10 out of 10 on a pain scale. Quality of pain is described as aching, Pain began gradually, Is continuous. Neuro: Level of Consciousness is awake, alert, obeys commands, Oriented to person, place, time, situation. Cardiovascular: Rhythm is. Cardiovascular: Heart tones S1 S2 present Rhythm is sinus tachycardia. Respiratory: Airway is patent Respiratory effort is even, unlabored, Respiratory pattern is regular, symmetrical, Breath sounds are clear bilaterally. GI: Abdomen is round non-distended, Bowel sounds present X 4 quads. Abd is soft and non tender X 4 quads. Reports nausea. 16:25 : No signs and/or symptoms were reported regarding the genitourinary system. EENT: No rs5 signs and/or symptoms were reported regarding the EENT system. Derm: Skin is intact, Skin is pink, warm \\T\\ dry. Musculoskeletal: Range of motion: intact in all extremities. 17:30 Reassessment: Patient states symptoms have not improved. Pt states, "My pain is the rs5 same", provider notified. 18:00 Reassessment: Patient appears in no apparent distress at this time. No changes from kc6 previously documented assessment. Patient and/or family updated on plan of care and expected duration. Pain level reassessed. Patient is alert, oriented x 3, equal unlabored respirations, skin warm/dry/pink. 20:09 General: Appears in no apparent distress. uncomfortable, Behavior is calm, cooperative. lg3 Pain: Complains of pain in abdomen. Neuro: No deficits noted. Farmer Agitation-Sedation Scale (RASS): 0 - Alert and Calm Level of Consciousness is awake, alert, obeys commands, Oriented to person, place, time, situation. Cardiovascular: No deficits noted. Denies chest pain, shortness of breath, Capillary refill < 3 seconds Clubbing of nail beds is absent JVD is absent Patient's skin is warm and dry. Respiratory: No deficits noted. Airway is patent Respiratory effort is even, unlabored, Respiratory pattern is regular, symmetrical. GI: Abdomen is round non-distended, Reports lower abdominal pain, upper abdominal pain, cramping, nausea. : No deficits noted. No signs and/or symptoms were reported regarding the genitourinary system. EENT: No deficits noted. No signs and/or symptoms were reported regarding the EENT system. Derm: No deficits noted. No signs and/or symptoms reported regarding the dermatologic system. Skin is intact, Skin is dry, Skin is normal, Skin temperature is warm. Musculoskeletal: No deficits noted. Circulation, motion, and sensation intact. Range of motion: intact in all extremities. 01/18 00:21 Reassessment: Patient appears in no apparent distress at this time. No changes from lg3 previously documented assessment. Patient and/or family updated on plan of care and expected duration. Pain level reassessed. Patient is alert, oriented x 3, equal unlabored respirations, skin warm/dry/pink. Vital Signs: 01/17 16:19 BP 151 / 107; Pulse 137; Resp 20; Temp 98.7(TE); Pulse Ox 99% ; Weight 74.84 kg; Height db 5 ft. 8 in. ; Pain 10/10; 16:45 BP 158 / 78; Pulse 110; Resp 18; Pulse Ox 99% on R/A; rs5 17:10 BP 131 / 95; Pulse 90; Resp 19; Pulse Ox 99% on R/A; rs5 18:38 BP 148 / 107; Pulse 111; Resp 20 S; Pulse Ox 96% on R/A; kc6 20:16 BP 168 / 107; Pulse 82; Resp 18 S; Pulse Ox 98% on R/A; Pain 9/10; lg3 21:31 BP 144 / 98; Pulse 109; Resp 19 S; Pulse Ox 97% on R/A; lg3 01/18 00:21 BP 138 / 94; Pulse 97; Resp 18 S; Pulse Ox 98% on R/A; lg3 01/17 16:19 Body Mass Index 25.09 (74.84 kg, 172.72 cm) db 12 16:19 Pain Scale: Adult db 20:16 Pain Scale: Adult lg3 ED Course: 01/17 15:50 Patient arrived in ED. mr 15:53 Cresencio Fagan MD is Attending Physician. rt 16:21 Triage completed. db 16:22 Arm band placed on left wrist. db 16:25 Patient has correct armband on for positive identification. Placed in gown. Bed in low rs5 position. Call light in reach. Side rails up X2. 16:45 Jan Michelle RN is Primary Nurse. rs5 16:45 Missed attempt(s): 22 gauge in right antecubital area. Bleeding controlled, band aid rs5 applied, catheter tip intact. 17:10 Inserted saline lock: 24 gauge in left hand, using aseptic technique. aa5 18:00 Report received from Jan Gomez RN. kc6 18:53 EKG done, by ED staff, reviewed by Cresencio Fagan MD. kc6 19:00 Report given to Felisha Jung RN. kc6 20:08 Attending Physician role handed off by Cresencio Fagan MD sp4 20:08 Quan Perrin MD is Attending Physician. sp4 20:09 Door closed. Noise minimized. Warm blanket given. lg3 20:09 Inserted saline lock: 22 gauge in left forearm, using aseptic technique. Patient lg3 maintains SpO2 saturation greater than 95% on room air. 20:36 CT Abd/Pelvis - IV Contrast Only In Process Unspecified. EDMS 21:18 Creatine Phosphokinase Sent. lg3 21:19 NT PRO-BNP Sent. lg3 01/18 00:21 No provider procedures requiring assistance completed. Patient admitted, IV remains in lg3 place. intact, No redness/swelling at site. Administered Medications: 01/17 17:10 Drug: Ondansetron IVP 4 mg IVP once; over 2 minutes Route: IVP; Site: left hand; rs5 17:30 Follow up: Response: No adverse reaction; Nausea is decreased rs5 17:11 Drug: HYDROmorphone IVP 1 mg IVP once Route: IVP; Site: left hand; rs5 17:30 Follow up: Response: No adverse reaction; Pain is unchanged, physician notified rs5 17:35 Drug: HYDROmorphone IVP 1 mg IVP once Route: IVP; Site: left hand; rs5 18:00 Follow up: Response: No adverse reaction; Pain is unchanged, physician notified; RASS: kc6 Alert and Calm (0) 18:13 Drug: Ketamine IVP 0.2 mg/kg IVP once; Mix in 50 mL NS IV over 10 minutes. Maximum Dose kc6 15 mg Route: IVP; Site: left hand; 18:39 Follow up: Response: No adverse reaction; Pain is unchanged, physician notified; RASS: kc6 Alert and Calm (0) 20:57 Drug: HYDROmorphone IVP 1 mg IVP once Route: IVP; Site: left forearm; [facility] 01/18 00:22 Follow up: Response: No adverse reaction; RASS: Alert and Calm (0) [facility] 01/17 20:57 Drug: Ondansetron IVP 4 mg IVP once; over 2 minutes Route: IVP; Site: left forearm; [facility] 01/18 00:22 Follow up: Response: No adverse reaction [facility] 01/17 21:32 Drug: Metoprolol IVP 5 mg IVP once; Hold for SBP <100 or HR <60. Route: IVP; Site: left lg3 forearm; 01/18 00:22 Follow up: Response: No adverse reaction [facility] 01/17 23:22 Drug: NS 0.9% IV 1000 ml IV at 125 ml/hr continuous Route: IV; Rate: 125 ml/hr; Site: lg3 left forearm; 01/18 00:22 Follow up: IV Status: Infusion continued upon transfer [facility] 01/17 23:22 Drug: metoCLOPramide IVP 10 mg IVP once; over 1 to 2 minutes Route: IVP; Site: left lg3 forearm; 01/18 00:22 Follow up: Response: No adverse reaction [facility] 01/17 23:23 Drug: HYDROmorphone IVP 2 mg IVP once Route: IVP; Site: left forearm; [facility] 01/18 00:22 Follow up: Response: No adverse reaction; RASS: Alert and Calm (0) [facility] Medication: 01/17 17:45 VIS not applicable for this client. rs5 Outcome: 22:52 ER care complete, transfer ordered by sp4 01/18 00:21 Transferred by ground EMS to [facility], [facility] [place], Transfer form completed. lg3 Condition: stable Instructed on the need for transfer, Demonstrated understanding of instructions, 00:23 Patient left the ED. lg3 Signatures: Dispatcher [employer] EDMS Graciela Hester, Reg Reg mr ChanoLisy, RN RN aa5 Felisha Jung, RN RN lg3 Maye Wallace RN RN kc6 Radha Hawthoren, RN RN Cresencio Coates MD MD rt Jan Michelle RN RN rs5 Quan Perrin MD MD sp4 Corrections: (The following items were deleted from the chart) 01/17 17:46 17:02 BP 131 / 95; Pulse 90bpm; Resp 19bpm; Pulse Ox 99% RA; rs5 rs5 17:47 16:45 BP 131 / 95; Pulse 90bpm; Resp 19bpm; Pulse Ox 99% RA; rs5 rs5 22:14 21:18 Troponin High Sensitivity drawn and sent. 3 EDSC
--- NOTE | 2023-01-17 22:53 | EDPHYS ---
Physician Documentation [facility] Name: Shad Swift Age: 67 yrs Sex: Female : 1955 Arrival Date: 01/17/2023 Time: 15:48 Bed 16 Private MD: ED Physician Quan Perrin HPI: 01/17 18:15 This 67 yrs old Female presents to ER via Wheelchair with complaints of Abdominal Pain, rt Back Pain. 18:15 2 weeks ago, the patient had a new diagnosis of a pancreatic cancer with metastasis. rt The patient states that the pain has not gone away since having a biopsy be done, has had worsening pains over the past few days. No nausea, vomiting. Denies other acute complaints, symptoms are severe in severity, no other aggravating elevating factors. Historical: - Allergies: 16:21 adhesive tape; db 16:21 Clindamycin; db - PMHx: 16:21 chronic back pain; Diabetes - IDDM; High Cholesterol; db - PSHx: 16:21 back SX x2; Hysterecomy; mastectomy; db - Immunization history:: Client reports receiving the 2nd dose of the Covid vaccine. - Social history:: Smoking status: Patient reports the use of cigarette tobacco products, smokes one-half pack cigarettes per day. - Family history:: not pertinent. ROS: 18:15 Constitutional: Negative for fever, chills, and weight loss, Cardiovascular: Negative rt for chest pain, palpitations, and edema, Respiratory: Negative for shortness of breath, cough, wheezing, and pleuritic chest pain, MS/Extremity: Negative for injury and deformity, Skin: Negative for injury, rash, and discoloration, Neuro: Negative for headache, weakness, numbness, tingling, and seizure, Psych: Negative for depression, anxiety, suicide ideation, homicidal ideation, and hallucinations, 18:15 Abdomen/GI: Positive for abdominal pain, Negative for nausea and vomiting, Exam: 18:15 Constitutional: This is a well developed, well nourished patient who is awake, alert, rt and in no acute distress. Head/Face: Normocephalic, atraumatic. Chest/axilla: Normal chest wall appearance and motion. Nontender with no deformity. No lesions are appreciated. Cardiovascular: Regular rate and rhythm with a normal S1 and S2. No gallops, murmurs, or rubs. Normal PMI, no JVD. No pulse deficits. Respiratory: Lungs have equal breath sounds bilaterally, clear to auscultation and percussion. No rales, rhonchi or wheezes noted. No increased work of breathing, no retractions or nasal flaring. Skin: Warm, dry with normal turgor. Normal color with no rashes, no lesions, and no evidence of cellulitis. MS/ Extremity: Pulses equal, no cyanosis. Neurovascular intact. Full, normal range of motion. Neuro: Awake and alert, GCS 15, oriented to person, place, time, and situation. Cranial nerves II-XII grossly intact. Motor strength 5/5 in all extremities. Sensory grossly intact. Cerebellar exam normal. Normal gait. Psych: Awake, alert, with orientation to person, place and time. Behavior, mood, and affect are within normal limits. 18:15 Abdomen/GI: Tenderness diffusely without rebound, guarding, distention, 18:52 ECG was reviewed by the Attending Physician. rt 21:24 ECG was reviewed by the Attending Physician. EKG at 2101 there is sinus tachycardia sp4 with premature atrial complexes, sinus arrhythmia, right ventricular hypertrophy, no ST elevation or depression, no ventricular ectopy Vital Signs: 16:19 BP 151 / 107; Pulse 137; Resp 20; Temp 98.7(TE); Pulse Ox 99% ; Weight 74.84 kg; Height db 5 ft. 8 in. ; Pain 10/10; 16:45 BP 158 / 78; Pulse 110; Resp 18; Pulse Ox 99% on R/A; rs5 17:10 BP 131 / 95; Pulse 90; Resp 19; Pulse Ox 99% on R/A; rs5 18:38 BP 148 / 107; Pulse 111; Resp 20 S; Pulse Ox 96% on R/A; kc6 20:16 BP 168 / 107; Pulse 82; Resp 18 S; Pulse Ox 98% on R/A; Pain 9/10; lg3 21:31 BP 144 / 98; Pulse 109; Resp 19 S; Pulse Ox 97% on R/A; lg3 1207 00:21 BP 138 / 94; Pulse 97; Resp 18 S; Pulse Ox 98% on R/A; lg3 01/17 16:19 Body Mass Index 25.09 (74.84 kg, 172.72 cm) db 01/17 16:19 Pain Scale: Adult db 20:16 Pain Scale: Adult lg3 MDM: 01/17 16:32 Patient medically screened. rt 22:53 Differential diagnosis: Acute Hemolysis arthritis, Cholelithiasis Fatigue Fracture sp4 Hodgkin's Disease Osteoarthritis. Data reviewed: vital signs, nurses notes, EMS record, old medical records, lab test result(s), EKG, radiologic studies, CT scan. Consideration of Admission/Observation Patient was admitted/placed on observation. Escalation of care including admission/observation considered. Management of patient was discussed with the following: Hospitalist: [facility]. ED course: Patient was accepted at [facility]. 22:53 ED course: EXAM DESCRIPTION: CTAbdomen Pelvis W Contrast - 01/17/2023 8:34 pm CLINICAL sp4 HISTORY: Abdominal pain. ABD PAIN COMPARISON: Abdomen Pelvis W Contrast dated 01/01/2023; Abdomen Pelvis W Contrast dated 09/02/2015; CTABD PELVIS W CONTRAST dated 01/26/2014; CTABD PELVIS W CONTRAST dated 01/24/2014 TECHNIQUE: Biphasic CT imaging of the abdomen and pelvis was performed with 100 ml non-ionic IV contrast. All CT scans are performed using dose optimization technique as appropriate and may include automated exposure control or mA/KV adjustment according to patient size. FINDINGS: The lung bases are clear. There are multiple liver masses present which have mildly enlarged since comparative study likely representing liver metastases. There is irregular mass body of the pancreas measuring approximately 4 cm with pancreatic ductal dilatation most compatible with pancreatic neoplasia. Small defects in the periphery of the spleen likely related small infarcts. The celiac axis appears occluded. Both adrenal glands and kidneys within normal limits. No bowel obstruction, free air, free fluid or abscess. Mild sigmoid diverticulosis coli without diverticulitis. The appendix is not identified as a discrete structure, however, no secondary findings of appendicitis are identified. No evidence of significant lymphadenopathy. Postsurgical changes with hardware place lumbar spine. IMPRESSION: Findings seen most compatible with pancreatic neoplasia with hepatic metastatic disease. There is mild progression the hepatic metastatic deposits noted since prior study. Small defects in the periphery of the spleen likely infarcts. 01/17 16:33 Order name: CBC with Diff; Complete Time: 17:18 rt 01/17 16:33 Order name: CMP; Complete Time: 22:45 rt 01/17 16:33 Order name: Lipase; Complete Time: 22:45 rt 01/17 20:09 Order name: COVID-19/FLU A+B; Complete Time: 22:45 sp4 01/17 20:16 Order name: Troponin High Sensitivity; Complete Time: 22:45 sp4 01/17 20:16 Order name: BNP; Complete Time: 22:45 sp4 01/17 20:16 Order name: CK; Complete Time: 22:45 sp4 01/17 21:09 Order name: Creatine Phosphokinase; Complete Time: 22:45 EDMS 01/17 21:09 Order name: NT PRO-BNP; Complete Time: 22:45 EDMS 01/17 17:50 Order name: CT Abd/Pelvis - IV Contrast Only; Complete Time: 21:22 rt 01/17 20:15 Order name: EKG; Complete Time: 21:08 sp4 01/17 16:33 Order name: IV Saline Lock; Complete Time: 17:15 rt 01/17 16:33 Order name: Labs collected and sent; Complete Time: 17:15 rt 01/17 20:15 Order name: EKG - Nurse/Tech; Complete Time: 21:01 sp4 EC:52 Rate is 99 beats/min. Rhythm is regular, Normal Sinus Rhythm with PACs. Left axis rt deviation noted. PA interval is normal. QRS interval is normal. QT interval is normal. No Q waves. Administered Medications: 17:10 Drug: Ondansetron IVP 4 mg IVP once; over 2 minutes Route: IVP; Site: left hand; rs5 17:30 Follow up: Response: No adverse reaction; Nausea is decreased rs5 17:11 Drug: HYDROmorphone IVP 1 mg IVP once Route: IVP; Site: left hand; rs5 17:30 Follow up: Response: No adverse reaction; Pain is unchanged, physician notified rs5 17:35 Drug: HYDROmorphone IVP 1 mg IVP once Route: IVP; Site: left hand; rs5 18:00 Follow up: Response: No adverse reaction; Pain is unchanged, physician notified; RASS: kc6 Alert and Calm (0) 18:13 Drug: Ketamine IVP 0.2 mg/kg IVP once; Mix in 50 mL NS IV over 10 minutes. Maximum Dose kc6 15 mg Route: IVP; Site: left hand; 18:39 Follow up: Response: No adverse reaction; Pain is unchanged, physician notified; RASS: kc6 Alert and Calm (0) 20:57 Drug: HYDROmorphone IVP 1 mg IVP once Route: IVP; Site: left forearm; 3 01/18 00:22 Follow up: Response: No adverse reaction; RASS: Alert and Calm (0) 3 01/17 20:57 Drug: Ondansetron IVP 4 mg IVP once; over 2 minutes Route: IVP; Site: left forearm; 3 01/18 00:22 Follow up: Response: No adverse reaction [facility] 01/17 21:32 Drug: Metoprolol IVP 5 mg IVP once; Hold for SBP <100 or HR <60. Route: IVP; Site: left lg3 forearm; 01/18 00:22 Follow up: Response: No adverse reaction [facility] 01/17 23:22 Drug: NS 0.9% IV 1000 ml IV at 125 ml/hr continuous Route: IV; Rate: 125 ml/hr; Site: lg3 left forearm; 01/18 00:22 Follow up: IV Status: Infusion continued upon transfer 3 01/17 23:22 Drug: metoCLOPramide IVP 10 mg IVP once; over 1 to 2 minutes Route: IVP; Site: left lg3 forearm; 01/18 00:22 Follow up: Response: No adverse reaction [facility] 01/17 23:23 Drug: HYDROmorphone IVP 2 mg IVP once Route: IVP; Site: left forearm; 3 01/18 00:22 Follow up: Response: No adverse reaction; RASS: Alert and Calm (0) 3 Disposition Summary: 01/17/23 22:52 Transfer Ordered Notes: Transfer Location: [facility] sp4 Reason: Higher level of care sp4 Condition: Stable sp4 Problem: new sp4 Symptoms: have improved sp4 [facility] lg3 Diagnosis - Intractable cancer pain, pancreatic mass, metastatic disease to the liver, sp4 intractable vomiting Forms: - Medication Reconciliation Form sp4 - SBAR form sp4 Signatures: Dispatcher [employer] EDFelisha Flanagan RN RN lg3 Maye Wallace, RN RN kc6 Radha Hawthorne, RN RN db Cresencio Fagan MD MD rt Jan Michelle RN RN rs5 Quan Perrin MD MD sp4 Corrections: (The following items were deleted from the chart) 01/17 22:14 21:09 Troponin High Sensitivity ordered. EDMD FAUSTOMS 01/18 00:23 01/17 22:52 [facility] lg3
[2023-01-17] MEDS ORDERED: NA CHLORIDE 0.9% 1,000 ML ONE (23:34)
[2023-01-17] MEDS ORDERED: METOCLOPRAMIDE 10 MG/2mL INJ ONE (23:34)
[2023-01-18 00:54] VITALS: TEMP 98.7
[2023-01-18 01:02] VITALS: BP 138/94; O2SAT 98
--- NOTE | 2023-01-23 14:05 | EKG ---
Test Date: 2023-01-17 Test Time: 18:46:46 Endocrinology Physician: JUANY MEASUREMENT RESULTS: Intervals: Rate: 99 NH: 104 QRSD: 92 QT: 364 QTc: 467 [place]: P: NH: 104 QRS: 268 T: 88 INTERPRETIVE STATEMENTS: Sinus rhythm with short NH with premature atrial complexes Right ventricular hypertrophy Abnormal ECG Compared to ECG 10/06/2021 21:20:52 Short NH interval now present Right ventricular hypertrophy now present Ventricular premature complex(es) no longer present Left-axis deviation no longer present Myocardial infarct finding no longer present Electronically Signed On 01-23-23 13:46:56 MAILROOM ASSISTANT by Hans Pérez
== END 2023-01-18 00:23 | disposition short-term general hospital (02) ==
LOC: ER 15:48
DX: G89.3 Neoplasm related pain (acute) (chronic) (principal); C78.7 Secondary malignant neoplasm of liver and intrahepatic bile duct; C25.9 Malignant neoplasm of pancreas, unspecified; R11.10 Vomiting, unspecified; E11.9 Type 2 diabetes mellitus without complications; F17.210 Nicotine dependence, cigarettes, uncomplicated; Z88.3 Allergy status to other anti-infective agents; Z91.048 Other nonmedicinal substance allergy status; Z11.52 Encounter for screening for COVID-19
CPT/HCPCS: 93005; 85025; 36415; 82550 ×2; 84484; 83690; 80053; 83880 ×2; 0240U; 74177; 99285; Q9967; J2765; J1170 ×4; J2405 ×2; J7030

== ENCOUNTER → 2023-02-05 | Emergency (ER) | payer OTHER ==
[~2023-02-05] MED LIST: DIAZEPAM 10 MG/2 ML INJ SYRINGE ONE; HYDROMORPHONE HCL 1 MG/ML INJ ONE; KETOROLAC 30 MG/ML INJ ONE; NA CHLORIDE 0.9% 1,000 ML ONE; NA CHLORIDE 0.9% 500 ML ONE
[2023-02-05 09:42] LABS: Absolute Lymphocytes (CBC) 1.9 K/uL (0.7-4.9); Hematocrit 41.3 % (36.0-45.0); Lymphocytes % 8.6 % (15.3-44.8); MCV 88.2 fL (80-100); MPV 8.8 fL (7.6-11.3); Platelets 185 thou/uL (152-406); RBC Red Blood Cell Count 4.69 M/uL (3.86-4.86)
[2023-02-05 09:58] LABS: Urine Bacteria <20 /HPF (<20); Urine Mucus Slight /HPF (None Seen)
[2023-02-05 10:03] LABS: Urine Bilirubin 1+ (Negative); Urine Blood Negative (Negative); Urine Clarity Extremely Turbid (Clear); Urine Color Yellow (Yellow); Urine Glucose 4+ (Over) (Negative); Urine Protein 1+ (Negative); Urine Urobilinogen 2+ (Normal)
[2023-02-05 10:04] LABS: Albumin 2.8 g/dL (3.4-5.0); Bilirubin Total 0.9 mg/dL (0.2-1.0); Protein, Total 7.1 g/dL (6.4-8.2)
[2023-02-05 10:43] LABS: Blood Morphology Comment NOT SEEN (NOT SEEN); Platelet Estimate ADEQ; White Blood Cell Scan OK (OK)
--- NOTE | 2023-02-05 11:03 | RAD REPORT ---
EXAM DESCRIPTION: RADChest Single View02/05/2023 9:39 am CLINICAL HISTORY: SOB COMPARISON: Chest Single View dated 10/06/2021; Chest Single View dated 07/21/2021; Chest Single View d ated 10/11/2020; Chest Pa And Lat (2 Views) dated 10/08/2020 TECHNIQUE: Portable AP view of the chest. FINDINGS: Left chest wall port again with catheter tip projecting over the left innominate vein not crossing the midline. The lungs are clear. No pneumothorax or effusion. The cardiomediastinal contou rs are unremarkable. IMPRESSION: No acute cardiopulmonary process.
[2023-02-05 13:47] LABS: Absolute Lymphocytes (CBC) 2.4 K/uL (0.7-4.9); Hematocrit 36.6 % (36.0-45.0); Lymphocytes % 14.8 % (15.3-44.8); MCV 87.4 fL (80-100); MPV 8.1 fL (7.6-11.3); Platelets 152 thou/uL (152-406); RBC Red Blood Cell Count 4.19 M/uL (3.86-4.86)
--- NOTE | 2023-02-05 14:13 | ER ---
Nurse's Notes [facility] Name: Shad Swift Age: 67 yrs Sex: Female : 1955 Arrival Date: 02/05/2023 Time: 09:00 Bed 20 Private MD: Diagnosis: Volume depletion, unspecified;Acute upper respiratory infection, unspecified Presentation: 02/05 09:03 Chief complaint: Patient states: she had trouble breathing this morning, felt like she kc6 couldn't get any air. stated she had chemo for the first time on Sunday for pancreatic cancer. Coronavirus screen: At this time, the client does not indicate any symptoms associated with coronavirus-19. Ebola Screen: No symptoms or risks identified at this time. Initial Sepsis Screen: Does the patient meet any 2 criteria? No. Patient's initial sepsis screen is negative. Does the patient have a suspected source of infection? No. Patient's initial sepsis screen is negative. Risk Assessment: Do you want to hurt yourself or someone else? Patient reports no desire to harm self or others. Onset of symptoms was February 05, 2023. 09:03 Method Of Arrival: EMS: [facility] kc6 09:03 Acuity: [place] 3 kc6 Triage Assessment: 09:05 General: Appears in no apparent distress. uncomfortable, well groomed, well developed, kc6 Behavior is calm, cooperative, appropriate for age. Pain: Complains of pain in back and abdomen. EENT: No signs and/or symptoms were reported regarding the EENT system. Neuro: Level of Consciousness is awake, alert, obeys commands, Oriented to person, place, time, situation, Appropriate for age. Cardiovascular: Denies chest pain, Heart tones S1 S2 present Capillary refill < 3 seconds. Respiratory: Reports shortness of breath at rest Airway is patent Trachea midline Respiratory effort is even, unlabored, Respiratory pattern is regular, symmetrical, Onset: The symptoms/episode began/occurred this morning, the patient has mild shortness of breath. GI: No signs and/or symptoms were reported involving the gastrointestinal system. : No signs and/or symptoms were reported regarding the genitourinary system. Derm: No signs and/or symptoms reported regarding the dermatologic system. Skin is intact, is healthy with good turgor, Skin is pink, warm \T\ dry. Musculoskeletal: No signs and/or symptoms reported regarding the musculoskeletal system. Circulation, motion, and sensation intact. Capillary refill < 3 seconds, Range of motion: intact in all extremities. Historical: - Allergies: 09:05 adhesive tape; kc6 09:05 Clindamycin; kc6 - PMHx: 09:05 chronic back pain; Diabetes - IDDM; High Cholesterol; pancreatic cancer (mastectomy); kc6 breast cancer (mastectomy); - PSHx: 09:05 back SX x2; Hysterecomy; mastectomy; kc6 - Immunization history:: Client reports having NOT received the Covid vaccine. Flu vaccine is not up to date. - Social history:: Smoking status: Patient reports the use of cigarette tobacco products, denies chronic smoking, but will smoke occasionally. Screenin:07 [facility] ED Fall Risk Assessment (Adult) History of falling in the last 3 months, [facility] including since admission No falls in past 3 months (0 pts) Confusion or Disorientation No (0 pts) Intoxicated or Sedated No (0 pts) Impaired Gait No (0 pts) Mobility Assist Device Used No (0 pt) Altered Elimination No (0 pt) Score/Fall Risk Level 0 - 2 = Low Risk. Abuse screen: Denies threats or abuse. Denies injuries from another. Nutritional screening: No deficits noted. Tuberculosis screening: No symptoms or risk factors identified. Assessment: 09:06 Reassessment: please see triage assessment. pt has a 75 mcg/hr fentanyl patch located kc6 to her right upper arm. 10:03 Reassessment: Patient appears in no apparent distress at this time. No changes from [facility] previously documented assessment. Patient and/or family updated on plan of care and expected duration. Pain level reassessed. Patient is alert, oriented x 3, equal unlabored respirations, skin warm/dry/pink. Patient states symptoms have not improved. 10:51 Reassessment: Patient appears in no apparent distress at this time. No changes from [facility] previously documented assessment. Patient and/or family updated on plan of care and expected duration. Pain level reassessed. Patient is alert, oriented x 3, equal unlabored respirations, skin warm/dry/pink. 11:24 Reassessment: daughter in law Rachel [facility] [phone] states pt is currently being [facility] cared for under Dr. Mathur and would like her to stay here if the decision is to hospitalize. Rylie DINING SERVICE SUPERVISOR notified. 11:31 Reassessment: Patient appears in no apparent distress at this time. No changes from kc6 previously documented assessment. Patient and/or family updated on plan of care and expected duration. Pain level reassessed. Patient is alert, oriented x 3, equal unlabored respirations, skin warm/dry/pink. pt placed on 2L via NC for SPO2 of 91% RA after IV Valium admin Patient denies pain at this time. Patient states feeling better. Patient states symptoms have improved. 12:31 Reassessment: Patient appears in no apparent distress at this time. No changes from kc6 previously documented assessment. Patient and/or family updated on plan of care and expected duration. Pain level reassessed. Patient is alert, oriented x 3, equal unlabored respirations, skin warm/dry/pink. 13:20 Reassessment: Patient appears in no apparent distress at this time. No changes from kc6 previously documented assessment. Patient and/or family updated on plan of care and expected duration. Pain level reassessed. Patient is alert, oriented x 3, equal unlabored respirations, skin warm/dry/pink. 14:22 Reassessment: spoke with patients daughter in law. she states she will come pick her kc6 up, ETA 1hr. 15:24 Reassessment: Patient appears in no apparent distress at this time. No changes from kc6 previously documented assessment. Patient and/or family updated on plan of care and expected duration. Pain level reassessed. Patient is alert, oriented x 3, equal unlabored respirations, skin warm/dry/pink. Vital Signs: 09:03 BP 129 / 73; Pulse 100; Resp 14 S; Temp 98(A); Pulse Ox 100% on R/A; Weight 72.57 kg kc6 (R); Height 5 ft. 8 in. (R); 10:03 BP 153 / 83; Pulse 104; Resp 19 S; Pulse Ox 96% on R/A; kc6 10:51 BP 133 / 81; Pulse 100; Resp 20 S; Pulse Ox 96% on R/A; kc6 11:31 BP 149 / 88; Pulse 93; Resp 20 S; Pulse Ox 97% on 2 lpm NC; Pain 0/10; kc6 13:20 BP 147 / 76; Pulse 85; Resp 17 S; Pulse Ox 92% on R/A; kc6 14:23 Pulse 92; Resp 16 S; Pulse Ox 98% on R/A; kc6 09:03 Body Mass Index 24.33 (72.57 kg, 172.72 cm) kc6 11:31 Pain Scale: Adult kc ED Course: 09:02 Patient arrived in ED. snw 09:02 Rylie Chaparro FNP-C [facility]. snw 09:02 Cresencio Fagan MD is Attending Physician. snw 09:03 Maye Wallace, STARLA is Primary Nurse. kc6 09:05 Triage completed. kc6 09:05 Arm band placed on. kc6 09:07 Patient has correct armband on for positive identification. Bed in low position. Call [facility] light in reach. Side rails up X2. Client placed on continuous cardiac and pulse oximetry monitoring. NIBP monitoring applied. obstetrics gynecology physician on. 09:07 Patient maintains SpO2 saturation greater than 95% on room air. kc6 09:29 Missed attempt(s): 22 gauge in left antecubital area. Inserted saline lock: 24 gauge in [facility] left wrist, using aseptic technique. Blood collected. 09:40 Chest Single View In Process Unspecified. EDMS 09:47 Straight cath inserted, using sterile technique, 14 Fr. Specimen obtained. Returned [facility] clear yellow urine. Patient tolerated well. 09:48 Urine W/Microscopic (UAM) Sent. kc6 11:05 Inserted saline lock: 22 gauge in left forearm, using aseptic technique. ,using aseptic kc6 technique. US line by Clement Mack RN. 11:14 IV discontinued, intact, bleeding controlled, No redness/swelling at site. Pressure 6 dressing applied, 22G LFA infiltrated. 13:44 CBC with Diff Sent. kc6 15:24 No provider procedures requiring assistance completed. IV discontinued, intact, kc6 bleeding controlled, No redness/swelling at site. Pressure dressing applied. Administered Medications: 09:13 Drug: HYDROmorphone IM 1 mg IM once Route: IM; Site: left deltoid; kc6 10:03 Follow up: Response: No adverse reaction; Pain is unchanged, physician notified; RASS: [facility] Alert and Calm (0) 11:05 Drug: NS 0.9% IV 1000 ml IV at 1 bolus Per protocol; 1000 mL bolus Route: IV; Rate: 1 kc6 bolus; Site: left forearm; 12:50 Follow up: Response: No adverse reaction; IV Status: Completed infusion; IV Intake: kc6 1000ml 11:22 Drug: Diazepam IVP 5 mg IVP once Route: IVP; Site: left wrist; kc6 11:30 Follow up: Response: No adverse reaction; Pain is decreased; RASS: Drowsy (-1) kc6 12:50 Drug: NS 0.9% IV 500 ml IV at bolus once Route: IV; Rate: bolus; Site: left wrist; kc6 13:44 Follow up: Response: No adverse reaction; IV Status: Completed infusion; IV Intake: kc6 500ml 12:50 Drug: Ketorolac IVP 15 mg IVP once Route: IVP; Site: left wrist; kc6 13:28 Follow up: Response: No adverse reaction; Pain is decreased kc6 Medication: 15:25 VIS not applicable for this client. kc6 Intake: 12:50 IV: 1000ml; Total: 1000ml. kc6 13:44 IV: 500ml; Total: 1500ml. kc6 Outcome: 14:12 Discharge ordered by . radha 15:25 Discharged to home via wheelchair, with family, kc6 15:25 Condition: improved 15:25 Discharge instructions given to patient, family, Instructed on discharge instructions, follow up and referral plans. Demonstrated understanding of instructions, follow-up care, 15:25 Patient left the ED. kc6 Signatures: Dispatcher [employer] EDRylie Salazar FNP-C REED DIPPER-Maye Phipps RN RN kc6 Corrections: (The following items were deleted from the chart) 09:34 09:06 Reassessment: please see triage assessment. pt has a 75 mcg/hr fentanyl patch kc6 located tot he right upper arm kc6 11:31 11:31 Reassessment: Patient appears in no apparent distress at this time. No changes kc6 from previously documented assessment. Patient and/or family updated on plan of care and expected duration. Pain level reassessed. Patient is alert, oriented x 3, equal unlabored respirations, skin warm/dry/pink. Patient denies pain at this time. Patient states feeling better. Patient states symptoms have improved. kc6
--- NOTE | 2023-02-05 14:13 | EDPHYS ---
Physician Documentation [facility] Name: Shad Swift Age: 67 yrs Sex: Female : 1955 Arrival Date: 02/05/2023 Time: 09:00 Bed 20 Private MD: ED Physician Cresencio Fagan HPI: 02/05 09:06 This 67 yrs old Female presents to ER via EMS with complaints of Breathing Difficulty. snw 09:06 The patient has shortness of breath at rest. Onset: The symptoms/episode began/occurred snw gradually. Duration: The symptoms are continuous. The patient's shortness of breath is aggravated by nothing, is alleviated by nothing. Severity of symptoms: At their worst the symptoms were moderate. Chemo for pancreatic cancer. Historical: - Allergies: 09:05 adhesive tape; kc6 09:05 Clindamycin; kc6 - PMHx: 09:05 chronic back pain; Diabetes - IDDM; High Cholesterol; pancreatic cancer (mastectomy); kc6 breast cancer (mastectomy); - PSHx: 09:05 back SX x2; Hysterecomy; mastectomy; kc6 - Immunization history:: Client reports having NOT received the Covid vaccine. Flu vaccine is not up to date. - Social history:: Smoking status: Patient reports the use of cigarette tobacco products, denies chronic smoking, but will smoke occasionally. ROS: 09:02 Back: Negative for injury and pain, : Negative for injury, bleeding, discharge, and snw swelling, MS/Extremity: Negative for injury and deformity, Skin: Negative for injury, rash, and discoloration, Neuro: Negative for headache, weakness, numbness, tingling, and seizure, Psych: Negative for depression, anxiety, suicide ideation, homicidal ideation, and hallucinations, 09:02 Eyes: Negative for injury, pain, redness, and discharge, ENT: Negative for injury, pain, and discharge, Neck: Negative for injury, pain, and swelling, Cardiovascular: Negative for chest pain, palpitations, and edema, Respiratory: Positive for shortness of breath, denies cough, wheezing, and pleuritic chest pain, 09:02 Constitutional: Positive for body aches, 09:02 Abdomen/GI: Positive for abdominal pain, Exam: 09:03 Constitutional: This is a well developed, well nourished patient who is awake, alert, snw and uncomfortable Head/Face: Normocephalic, atraumatic. Eyes: Pupils equal round and reactive to light, extra-ocular motions intact. Lids and lashes normal. Conjunctiva and sclera are non-icteric and not injected. Cornea within normal limits. Periorbital areas with no swelling, redness, or edema. ENT: Nares patent. No nasal discharge, no septal abnormalities noted. Tympanic membranes are normal and external auditory canals are clear. Oropharynx with no redness, swelling, or masses, exudates, or evidence of obstruction, uvula midline. Mucous membranes moist. Neck: Trachea midline, no thyromegaly or masses palpated, and no cervical lymphadenopathy. Supple, full range of motion without nuchal rigidity, or vertebral point tenderness. No Meningismus. Chest/axilla: Normal chest wall appearance and motion. Nontender with no deformity. No lesions are appreciated. Cardiovascular: Regular rate and rhythm with a normal S1 and S2. No gallops, murmurs, or rubs. Normal PMI, no JVD. No pulse deficits. Respiratory: Lungs have equal breath sounds bilaterally, clear to auscultation and percussion. No rales, rhonchi or wheezes noted. No increased work of breathing, no retractions or nasal flaring. Abdomen/GI: Soft, non-tender, with normal bowel sounds. No distension or tympany. No guarding or rebound. No evidence of tenderness throughout. Back: No spinal tenderness. No costovertebral tenderness. Full range of motion. Skin: Warm, dry with normal turgor. Normal color with no rashes, no lesions, and no evidence of cellulitis. MS/ Extremity: Pulses equal, no cyanosis. Neurovascular intact. Full, normal range of motion. Neuro: Awake and alert, GCS 15, oriented to person, place, time, and situation. Cranial nerves II-XII grossly intact. Motor strength 5/5 in all extremities. Sensory grossly intact. Cerebellar exam normal. Normal gait. Psych: Awake, alert, with orientation to person, place and time. Behavior, mood, and affect are within normal limits. Vital Signs: 09:03 BP 129 / 73; Pulse 100; Resp 14 S; Temp 98(A); Pulse Ox 100% on R/A; Weight 72.57 kg kc6 (R); Height 5 ft. 8 in. (R); 10:03 BP 153 / 83; Pulse 104; Resp 19 S; Pulse Ox 96% on R/A; kc6 10:51 BP 133 / 81; Pulse 100; Resp 20 S; Pulse Ox 96% on R/A; kc6 11:31 BP 149 / 88; Pulse 93; Resp 20 S; Pulse Ox 97% on 2 lpm NC; Pain 0/10; kc6 13:20 BP 147 / 76; Pulse 85; Resp 17 S; Pulse Ox 92% on R/A; kc6 14:23 Pulse 92; Resp 16 S; Pulse Ox 98% on R/A; kc6 09:03 Body Mass Index 24.33 (72.57 kg, 172.72 cm) kc6 11:31 Pain Scale: Adult kc6 MDM: 09:02 Patient medically screened. snw 09:04 Differential diagnosis: Anxiety Reaction Chronic Obstructive Pulmonary Disease snw pneumonia. Data reviewed: vital signs, nurses notes. Historians other than the Patient: EMS: [facility]. Counseling: I had a detailed discussion with the patient and/or guardian regarding the historical points, exam findings, and any diagnostic results supporting the discharge/admit diagnosis. 14:21 Response to treatment: the patient's symptoms have markedly improved after treatment. snw Special discussion: Based on the history and exam findings, there is no indication for further emergent testing or inpatient evaluation. I discussed with the patient/guardian the need to see the high school music instructor/oncologist for further evaluation of the symptoms. ED course: Most of patient's complaint is regarding chronic back pain. She is more talkative, looks more alert. "I hate having this pain." when asked, pt states this is her chronic back pain. Encouraged to drink more fluids and avoid dehydration. She states it is hard to drink when hurting all the time. Pt has fentanyl patches at home. Has appt with Hem/Onc Feb 16.. 02/05 09:06 Order name: Flu; Complete Time: 10:27 snw 02/05 09:13 Order name: Urine W/Microscopic (UAM); Complete Time: 10:27 snw 02/05 09:13 Order name: CBC with Diff; Complete Time: 10:56 snw 02/05 09:13 Order name: CMP; Complete Time: 10:27 snw 02/05 09:13 Order name: Lipase; Complete Time: 10:27 snw 02/05 09:47 Order name: CBC Smear Scan; Complete Time: 10:56 EDMS 02/05 10:06 Order name: Urine Culture EDMS 02/05 10:28 Order name: Blood Culture Adult (2) snw 02/05 13:10 Order name: CBC with Diff; Complete Time: 14:09 snw 02/05 09:40 Order name: Chest Single View; Complete Time: 11:05 EDMS Administered Medications: 09:13 Drug: HYDROmorphone IM 1 mg IM once Route: IM; Site: left deltoid; kc6 10:03 Follow up: Response: No adverse reaction; Pain is unchanged, physician notified; RASS: kc6 Alert and Calm (0) 11:05 Drug: NS 0.9% IV 1000 ml IV at 1 bolus Per protocol; 1000 mL bolus Route: IV; Rate: 1 kc6 bolus; Site: left forearm; 12:50 Follow up: Response: No adverse reaction; IV Status: Completed infusion; IV Intake: kc6 1000ml 11:22 Drug: Diazepam IVP 5 mg IVP once Route: IVP; Site: left wrist; kc6 11:30 Follow up: Response: No adverse reaction; Pain is decreased; RASS: Drowsy (-1) kc6 12:50 Drug: NS 0.9% IV 500 ml IV at bolus once Route: IV; Rate: bolus; Site: left wrist; kc6 13:44 Follow up: Response: No adverse reaction; IV Status: Completed infusion; IV Intake: kc6 500ml 12:50 Drug: Ketorolac IVP 15 mg IVP once Route: IVP; Site: left wrist; kc6 13:28 Follow up: Response: No adverse reaction; Pain is decreased kc6 Disposition: 17:02 Co-signature as Attending Physician, Cresencio Fagan MD I reviewed the patient's care rt provided by the Advanced Practice Provider and agree with the diagnosis and treatment plan. Disposition Summary: 02/05/23 14:12 Discharge Ordered Notes: Location: Home snw Condition: Stable snw Diagnosis - Volume depletion, unspecified snw - Acute upper respiratory infection, unspecified snw Followup: snw - With: Emergency Department - When: As needed - Reason: Worsening of condition Followup: snw - With: Private Physician - When: 1 - 2 days - Reason: Recheck today's complaints, Continuance of care, Re-evaluation by your physician Discharge Instructions: - Discharge Summary Sheet snw - Dehydration, Elderly snw - Upper Respiratory Infection, Adult snw - Rehydration, Elderly snw Forms: - Medication Reconciliation Form snw - Thank You Letter snw - Antibiotic Education snw - Prescription Opioid Use snw - Patient Portal Instructions snw - Leadership Thank You Letter snw Signatures: Dispatcher [employer] EDMS Rylie Chaparro FNP-Familia SAUSAGE STRINGER-Csnw Maye Wallace, RN RN kc6 Cresencio Fagan MD MD rt Corrections: (The following items were deleted from the chart) 09:40 09:06 Chest Pa And Lat (2 Views)+[email or web address] ordered. [facility] EDWI
[2023-02-05 16:00] VITALS: TEMP 98
[2023-02-05 16:06] VITALS: BP 147/76; O2SAT 98
== END ==
LOC: ER 09:00
DX: J06.9 Acute upper respiratory infection, unspecified (principal); E86.9 Volume depletion, unspecified; C25.9 Malignant neoplasm of pancreas, unspecified; Z85.3 Personal history of malignant neoplasm of breast; F17.210 Nicotine dependence, cigarettes, uncomplicated; Z88.3 Allergy status to other anti-infective agents; Z91.048 Other nonmedicinal substance allergy status
CPT/HCPCS: 96361; 87040; 87088; 85025 ×2; 81001; 87086; 36415; 87205; 83690; 80053; 87804 ×2; 71045; 51702; 96375; 96372; 96374; 99285; J3360; J1170; J7040; J7030

== ENCOUNTER 2023-02-12 09:55 | Inpatient (IN) | payer OTHER ==
--- NOTE | 2023-02-12 10:41 | RAD REPORT ---
EXAM DESCRIPTION: Ervin Single View02/12/2023 10:23 am CLINICAL HISTORY: Chest pain COMPARISON: February 05, 2023 FINDINGS: Mild opacity right lateral lung base. Remainder of the lungs appear clear of acute infiltrate. Heart is normal size IMPRESSION: Mild opacity right lateral base may indicate a mild pneumonia
[2023-02-12] MEDS ORDERED: AZITHROMYCIN 500 MG INJ IVPB ONE (11:06)
[2023-02-12] MEDS ORDERED: NA CHLORIDE 0.9% 250 ML ONE (11:06)
[2023-02-12] MEDS ORDERED: NA CHLORIDE 0.9% 50 ML ONE (11:06)
[2023-02-12] MEDS ORDERED: NA CHLORIDE 0.9% 500 ML ONE ×2 (11:06→14:24)
[2023-02-12] MEDS ORDERED: CEFTRIAXONE 1000 MG/VIAL ONE (11:06)
[2023-02-12 11:13] LABS: Absolute Lymphocytes (CBC) 2.1 K/uL (0.7-4.9); Hematocrit 42.6 % (36.0-45.0); Lymphocytes % 8.5 % (15.3-44.8); MCV 89.6 fL (80-100); MPV 9.9 fL (7.6-11.3); Platelets 219 thou/uL (152-406); RBC Red Blood Cell Count 4.76 M/uL (3.86-4.86)
[2023-02-12 11:28] LABS: SARS-CoV-2 Antigen Rapid Res Negative (Negative)
--- NOTE | 2023-02-12 11:31 | EDPHYS ---
Physician Documentation [facility] Name: Shad Swift Age: 67 yrs Sex: Female : 1955 Arrival Date: 02/12/2023 Time: 09:55 Bed 18 Private MD: ED Physician Nolberto Shook HPI: 02/12 10:02 This 67 yrs old Female presents to ER via Unassigned with complaints of weakness, cough.rn 10:02 Patient reports feeling ill for the last week, has cough, shortness of breath, small rn amount of hemoptysis. Patient has a history of breast cancer status postmastectomy and currently has pancreatic cancer with metastases to the liver. Patient reports generalized weakness and near syncopal episode today. No trauma, was helped down to ground. Patient reports shortness of breath and cough. Not eating or drinking much lately. No vomiting or diarrhea. No new abdominal pain. Onset: The symptoms/episode began/occurred 1 week(s) ago. Severity of symptoms: At their worst the symptoms were moderate in the emergency department the symptoms are unchanged. The patient has experienced similar episodes in the past. The patient has been recently seen at the [facility] Emergency Department. Historical: - Allergies: 10:03 adhesive tape; cm10 10:03 Clindamycin; cm10 - PMHx: 10:03 breast cancer (mastectomy); chronic back pain; Diabetes - IDDM; High Cholesterol; cm10 pancreatic cancer (mastectomy); - PSHx: 10:03 back SX x2; Hysterecomy; mastectomy; cm10 - Immunization history:: Adult Immunizations unknown. - Social history:: Smoking status: Patient reports the use of cigarette tobacco products, denies chronic smoking, but will smoke occasionally. - Family history:: not pertinent. - Hospitalizations: : No recent hospitalization is reported. ROS: 10:02 Constitutional: Negative for fever, chills, and weight loss, Cardiovascular: Negative rn for chest pain, palpitations, and edema, Respiratory: Positive for cough and shortness of breath Abdomen/GI: Positive for chronic abdominal pain, negative for vomiting or diarrhea, negative for blood in stool Neuro: Negative for headache, numbness, tingling, and seizure, Exam: 10:02 Constitutional: This is a well developed, well nourished patient who is awake, alert, rn mild tachypnea Head/Face: Normocephalic, atraumatic. ENT: Dry mucous membranes Cardiovascular: Regular rate and rhythm. No pulse deficits. Respiratory: Mild tachypnea, diminished breath sounds bilateral bases, no retractions or wheezing Abdomen/GI: Soft, no rebound MS/ Extremity: Pulses equal, no cyanosis. Neuro: Awake and alert, GCS 15, motor strength 4 out of 5 in all extremities. Vital Signs: 10:04 BP 111 / 64; Pulse 109; Resp 18; Temp 97(TE); Pulse Ox 95% ; Weight 73 kg; cm10 11:30 BP 121 / 71; Pulse 109; Resp 20; Pulse Ox 98% on 2 lpm NC; cm10 13:30 BP 123 / 95; Pulse 121; Resp 18; Pulse Ox 98% ; cm10 17:30 BP 119 / 69; Pulse 99; Resp 18; Pulse Ox 100% on 3 lpm NC; cm10 18:30 BP 109 / 66; Pulse 108; Resp 18; Pulse Ox 94% on 3 lpm NC; cm10 19:30 BP 122 / 65; Pulse 102; Resp 18; Pulse Ox 96% on 3 lpm NC; cm10 MDM: 09:59 Patient medically screened. rn 11:30 Differential Diagnosis altered mental status, flu, Pneumonia, pleural effusion, rn pleurisy. Data reviewed: vital signs, nurses notes, lab test result(s), EKG, radiologic studies, plain films, and as a result, I will admit patient. Consideration of Admission/Observation Patient was admitted/placed on observation. Escalation of care including admission/observation considered. Counseling: I had a detailed discussion with the patient and/or guardian regarding the historical points, exam findings, and any diagnostic results supporting the discharge/admit diagnosis, lab results, radiology results, the need for further work-up and treatment in the hospital. Response to treatment: the patient's symptoms have mildly improved after treatment, and as a result, I will admit patient. 13:59 ED course: Repeat lactate improving, vital signs improving, no indication for 30 mL/kg rn bolus at this time. No shock. Sepsis reevaluation complete. 02/12 10:00 Order name: BMP; Complete Time: 13:58 rn 02/12 10:00 Order name: Blood Culture Adult (2) rn 02/12 10:00 Order name: CBC with Diff; Complete Time: 13:58 rn 02/12 10:00 Order name: Magnesium; Complete Time: 13:58 rn 02/12 10:00 Order name: NT PRO-BNP; Complete Time: 13:58 rn 02/12 10:00 Order name: PT-INR; Complete Time: 13:58 rn 02/12 10:00 Order name: Ptt, Activated; Complete Time: 13:58 rn 02/12 10:00 Order name: Troponin HS; Complete Time: 13:58 rn 02/12 10:01 Order name: Lactate w/ 2H reflex if indic.; Complete Time: 13:58 rn 02/12 10:01 Order name: Urinalysis w/ reflexes rn 02/12 10:02 Order name: SARS RAPID; Complete Time: 11:29 rn 02/12 10:02 Order name: Flu; Complete Time: 13:58 rn 02/12 12:18 Order name: Urinalysis w/ reflexes EDMS 02/12 12:22 Order name: Lactate w/ 2H reflex if indic. EDMS 02/12 12:22 Order name: Urinalysis w/ reflexes EDMS 02/12 12:22 Order name: Basic Metabolic Panel EDMS 02/12 12:22 Order name: Basic Metabolic Panel EDMS 02/12 12:22 Order name: Basic Metabolic Panel EDMS 02/12 12:22 Order name: Basic Metabolic Panel EDMS 02/12 12:22 Order name: Basic Metabolic Panel EDMS 02/12 12:22 Order name: CBC with Automated Diff EDMS 02/12 12:22 Order name: CBC with Automated Diff EDMS 02/12 12:22 Order name: CBC with Automated Diff EDMS 02/12 12:22 Order name: CBC with Automated Diff EDMS 02/12 12:22 Order name: CBC with Automated Diff EDMS 02/12 12:22 Order name: Magnesium EDMS 02/12 12:22 Order name: Magnesium EDMS 02/12 12:22 Order name: Magnesium EDMS 02/12 12:22 Order name: Magnesium EDMS 02/12 12:22 Order name: Magnesium EDMS 02/12 12:22 Order name: Sputum Culture EDMS 02/12 13:02 Order name: CBC Smear Scan; Complete Time: 13:58 EDMS 02/12 10:00 Order name: XRAY CXR (1 view); Complete Time: 10:51 rn 02/12 10:00 Order name: EKG; Complete Time: 10: rn 02/12 12:10 Order name: CONS Physician Consult EDMS 02/12 10:00 Order name: Cardiac monitoring; Complete Time: rn 02/12 10:00 Order name: EKG - Nurse/Tech; Complete Time: : rn 02/12 10:00 Order name: IV Saline Lock; Complete Time: rn 02/12 10:00 Order name: Labs collected and sent; Complete Time: rn 02/12 10:00 Order name: O2 Per Protocol; Complete Time: rn 02/12 10:00 Order name: O2 Sat Monitoring; Complete Time: rn 02/12 10:01 Order name: IV Saline Lock - Large Bore; Complete Time: rn 02/12 10:01 Order name: Vital Signs; Complete Time: : rn 02/12 11:19 Order name: Labs - recollect needed: recollect green and blue top please; Complete ll1 Time: 12:34 Administered Medications: 11:24 Drug: NS 0.9% IV 500 ml IV at bolus once Route: IV; Rate: bolus; Site: left hand; cm10 11:25 Drug: Rocephin IV 1 grams IV at calculated rate once; Given slow IV push per pharmacy cm10 instructions Route: IV; Rate: calculated rate; Site: left hand; 11:56 Follow up: IV Status: Completed infusion; IV Intake: 50ml cm10 13:24 Drug: Zithromax IVPB 500 mg IVPB once over 1 hrs; mix in 250 mL NS Route: IVPB; Infused cm10 Over: 1 hrs; Site: left hand; 14:53 Drug: NS 0.9% IV 500 ml IV at bolus once Route: IV; Rate: bolus; Site: left hand; cm10 18:14 Follow up: Response: No adverse reaction; IV Status: Completed infusion; IV Intake: cm10 500ml Disposition Summary: 02/12/23 11:31 Hospitalization Ordered Notes: Hospitalization Status: Inpatient Admission rn Location: Telemetry/[facility] (Inpatient) rn Condition: Stable rn Problem: an ongoing problem rn Symptoms: have worsened rn Bed/Room Type: Standard rn Provider: Bryan Otero(02/12/23 12:06) la1 Room Assignment: 201(02/12/23 19:05) rv1 Diagnosis - Pneumonia, unspecified organism rn - Weakness rn - Dyspnea, unspecified rn Forms: - Medication Reconciliation Form rn - SBAR form rn - Leadership Thank You Letter rn Signatures: Dispatcher [employer] EDUT Nolberto Shook MD MD rn Attema, Lee, LEAD TECHNICAL WRITER-C LEAD TECHNICAL WRITER-Cla1 Una Grove RN RN ll1 Ayla Chang rv1 Yadi Anderson RN RN cm10 Corrections: (The following items were deleted from the chart) 12:06 11:31 Rey Levy rn la1 19:05 11:31 rn rv1
--- NOTE | 2023-02-12 11:31 | ER ---
Nurse's Notes [facility] Name: Shad Swift Age: 67 yrs Sex: Female : 1955 Arrival Date: 02/12/2023 Time: 09:55 Bed 18 Private MD: Diagnosis: Pneumonia, unspecified organism;Weakness;Dyspnea, unspecified Presentation: 02/12 10:04 Chief complaint: EMS states: Called to patient's home due to patient feel weak. Per EMS cm10 report, pt's son called EMS after patient started feeling weak and almost fell. Pt's son caught patient. No LOC. Pt complaining of right sided chest pain that is worse with inspiration. Coronavirus screen: Client denies travel out of the [place] in the last 14 days. Ebola Screen: Patient denies travel to an Ebola-affected area in the 21 days before illness onset. No symptoms or risks identified at this time. Initial Sepsis Screen: Does the patient meet any 2 criteria? No. Patient's initial sepsis screen is negative. Does the patient have a suspected source of infection? No. Patient's initial sepsis screen is negative. Risk Assessment: Do you want to hurt yourself or someone else? Patient reports no desire to harm self or others. Onset of symptoms was February 12, 2023. 10:04 Method Of Arrival: EMS: [facility] cm10 10:04 Acuity: [place] 3 cm10 Triage Assessment: 10:15 General: Appears in no apparent distress. uncomfortable, Behavior is calm, cooperative. cm10 Pain: Complains of pain in chest. Neuro: No deficits noted. Level of Consciousness is awake, alert, obeys commands, Oriented to person, place, time, situation. Cardiovascular: Patient's skin is warm and dry. Respiratory: No deficits noted. Airway is patent Respiratory effort is even, unlabored, Respiratory pattern is regular, symmetrical. : No deficits noted. No signs and/or symptoms were reported regarding the genitourinary system. Derm: No deficits noted. No signs and/or symptoms reported regarding the dermatologic system. Skin is intact, Skin is pink, warm \T\ dry. Historical: - Allergies: 10:03 adhesive tape; cm10 10:03 Clindamycin; cm10 - PMHx: 10:03 breast cancer (mastectomy); chronic back pain; Diabetes - IDDM; High Cholesterol; cm10 pancreatic cancer (mastectomy); - PSHx: 10:03 back SX x2; Hysterecomy; mastectomy; cm10 - Immunization history:: Adult Immunizations unknown. - Social history:: Smoking status: Patient reports the use of cigarette tobacco products, denies chronic smoking, but will smoke occasionally. - Family history:: not pertinent. - Hospitalizations: : No recent hospitalization is reported. Screenin:[birth year] [facility] ED Fall Risk Assessment (Adult) History of falling in the last 3 months, cm10 including since admission Yes- single mechanical fall (1 pt) Confusion or Disorientation No (0 pts) Intoxicated or Sedated No (0 pts) Impaired Gait Yes (1 pt) Mobility Assist Device Used Yes (1 pt) Altered Elimination No (0 pt) Score/Fall Risk Level 3 or more points = High Risk Oriented to surroundings, Maintained a safe environment, Hourly rounding (assess needs \T\ fall precautionary measures) done. Abuse screen: Denies threats or abuse. Denies injuries from another. Nutritional screening: No deficits noted. Nutritional screening: No deficits noted. Tuberculosis screening: No symptoms or risk factors identified. Assessment: 11:10 Reassessment: Patient and/or family updated on plan of care and expected duration. Pain ll1 level reassessed. 13:00 Reassessment: Patient and/or family updated on plan of care and expected duration. Pain cm10 level reassessed. Patient is alert, oriented x 3, equal unlabored respirations, skin warm/dry/pink. 14:00 Reassessment: Patient appears in no apparent distress at this time. Patient and/or cm10 family updated on plan of care and expected duration. Pain level reassessed. Patient is alert, oriented x 3, equal unlabored respirations, skin warm/dry/pink. 16:00 Reassessment: Pt note to have BM. Pt's linen and pt cleaned. cm10 17:00 Reassessment: Patient appears in no apparent distress at this time. Patient and/or cm10 family updated on plan of care and expected duration. Pain level reassessed. Patient is alert, oriented x 3, equal unlabored respirations, skin warm/dry/pink. 18:00 Reassessment: Pt provided with dinner at this time. cm10 19:30 Reassessment: Pt complaining of shortness of breath. Dr. Mohan made aware and is at cm10 bedside assessing pt. Pt's O2 sat remains 97-100% on 3L NC. Vital Signs: 10:04 BP 111 / 64; Pulse 109; Resp 18; Temp 97(TE); Pulse Ox 95% ; Weight 73 kg; cm10 11:30 BP 121 / 71; Pulse 109; Resp 20; Pulse Ox 98% on 2 lpm NC; cm10 13:30 BP 123 / 95; Pulse 121; Resp 18; Pulse Ox 98% ; cm10 17:30 BP 119 / 69; Pulse 99; Resp 18; Pulse Ox 100% on 3 lpm NC; cm10 18:30 BP 109 / 66; Pulse 108; Resp 18; Pulse Ox 94% on 3 lpm NC; cm10 19:30 BP 122 / 65; Pulse 102; Resp 18; Pulse Ox 96% on 3 lpm NC; cm10 ED Course: 09:59 Patient arrived in ED. rn 09:59 Nolberto Shook MD is Attending Physician. rn 10:02 Yadi Anderson RN is Primary Nurse. cm10 10:05 Triage completed. cm10 10:06 Arm band placed on Patient placed in an exam room, on a stretcher, on pulse oximetry. cm10 10:25 XRAY CXR (1 view) In Process Unspecified. EDMS 11:00 Inserted saline lock: 22 gauge in left hand, using aseptic technique. Blood collected. ll1 11:30 Rey Levy is Hospitalizing Provider. rn 11:32 Notified ED physician of a critical lab result(s). lactate 2.5. ll1 12:06 Bryan Otero MD is Hospitalizing Provider. la1 13:58 Notified ED physician of a critical lab result(s). lactate 2.3. ll1 19:53 Patient has correct armband on for positive identification. Call light in reach. Side cm10 rails up X2. Provided Education on: ER process and procedures. . 19:54 No provider procedures requiring assistance completed. Patient admitted, IV remains in cm10 place. Administered Medications: 11:24 Drug: NS 0.9% IV 500 ml IV at bolus once Route: IV; Rate: bolus; Site: left hand; cm10 11:25 Drug: Rocephin IV 1 grams IV at calculated rate once; Given slow IV push per pharmacy cm10 instructions Route: IV; Rate: calculated rate; Site: left hand; 11:56 Follow up: IV Status: Completed infusion; IV Intake: 50ml cm10 13:24 Drug: Zithromax IVPB 500 mg IVPB once over 1 hrs; mix in 250 mL NS Route: IVPB; Infused cm10 Over: 1 hrs; Site: left hand; 14:53 Drug: NS 0.9% IV 500 ml IV at bolus once Route: IV; Rate: bolus; Site: left hand; cm10 18:14 Follow up: Response: No adverse reaction; IV Status: Completed infusion; IV Intake: cm10 500ml Medication: 19:54 VIS not applicable for this client. cm10 Intake: 11:56 IV: 50ml; Total: 50ml. cm10 18:14 IV: 500ml; Total: 550ml. cm10 Outcome: 11:31 Decision to Hospitalize by Provider. rn 19:54 Admitted to Med/surg accompanied by tech, via stretcher, room 201, with oxygen, Report cm10 called to STARLA Hu 19:54 Condition: good 19:54 Instructed on the need for admit, 19:54 Patient left the ED. cm10 Signatures: Dispatcher [employer] EDMS Nolberto Shook MD MD rn Attema, Lee, SECURITY INSTALLATION TECHNICIAN-C SECURITY INSTALLATION TECHNICIAN-Cla1 Una Grove RN RN ll1 Yadi Anderson RN RN cm10
--- NOTE | 2023-02-12 12:14 | P.HP ---
Certification for Inpatient Patient History Date of Service: 02/12/23 History of Present Illness: 67-year-old female with a past medical history of breast cancer mets to the pancreas, on chemotherapy chronic back pain, diabetes, hyperlipidemia, insulin- dependent diabetes mellitus, presents presents to the [facility] emergency room with shortness of breath, cough, small amount of hemoptysis. She reports failed for outpatient treatment for pneumonia. History of breast cancer status postmastectomy, mets to the liver pancreas. She reports seeing Dr. Mathur on chemotherapy. She reports shortness of breath worse with exertion, worse when laying flat, no reported fever, chills, nausea vomiting diarrhea. Lower extremity edema. She reports associated generalized weakness, she lives at home with son, ambulates with a walker. She reports poor appetite. She reports symptoms started week 1 week ago and progressively getting worse. Plan to admit for acute hypoxic respiratory failure secondary to pneumonia, pneumonia, weakness, anorexia, metastatic breast cancer on chemotherapy. She was treated with Rocephin, IV fluids, chest x-ray IMPRESSION: Mild opacity right lateral base may indicate a mild pneumonia, laboratory evaluation WBCs 24.70, left shift 82.7, mild hypokalemia 3.2 mild hyponatremia 135 blood glucose 141, elevated lactic 2.5, magnesium 1.1, elevated BNP 578 to, troponin normal at 38, UA pending, SARS, negative - Past Medical/Surgical History Diabetic: Yes -: COPD -: Diabetes mellitus type 2 insulin-dependent -: Hyperlipidemia -: Depression with anxiety -: Chronic pain -: Breast cancer -: HYSTERECTOMY -: breast flap/abdominal sx -: BACK SURGERY -: BACLOFEN PAIN PUMP Psychosocial/ Personal History: Patient lives at home - Family History Father -: Diabetes, Cancer Notes: pt states father was borderline diabetic, diet at the age of 56 from cancer. Mother -: Cancer Notes: pt states mother at the age of 61 from cancer (female cancer). - Social History Alcohol use: No CD- Drugs: No Caffeine use: Yes <Beatriz Santizo - Last Filed: 02/12/23 13:27> Date of Service: 02/12/23 <Bryan Otero - Last Filed: 02/12/23 16:33> Allergies adhesive tape Allergy (Verified 10/08/20 14:26) Rash Home Medications: ALPRAZolam [Alprazolam] 1 mg PO BID 08/17/20 Ascorbic Acid [Vitamin C] 500 mg PO DAILY 08/17/20 Aspirin [Aspirin EC 81 MG] 81 mg PO BEDTIME 08/17/20 Baclofen 10 mg PO BID 08/17/20 Cholecalciferol (Vitamin D3) [Vitamin D3] 1,000 unit PO DAILY 08/17/20 Cholestyramine (with Sugar) [Cholestyramine Packet] 4 gm PO DAILY 08/17/20 Diclofenac Sodium [Diclo Gel] 1 each TP PRN PRN 08/17/20 Esomeprazole Magnesium 40 mg PO DAILY 08/17/20 Gabapentin 300 mg PO TID 08/17/20 Insulin Glargine Human [Lantus] 20 unit SQ BID 08/17/20 Metformin HCl 1,000 mg PO BIDWM 08/17/20 Multivitamin [One-Daily Multi-Vitamin] 1 each PO DAILY 08/17/20 Benedicta-3 Fatty Acids [Benedicta-3] 500 mg PO DAILY 08/17/20 Ondansetron HCl 4 mg PO Q8HP PRN 08/17/20 Pramipexole [Mirapex] 0.25 mg PO BEDTIME 08/17/20 Sertraline [Zoloft] 50 mg PO DAILY 08/17/20 Simvastatin 40 mg PO BEDTIME 08/17/20 Triamcinolone 0.1% Crm [Kenalog 0.1% Cream] 15 appl TOP PRN PRN 08/17/20 Vitamin E 400 unit PO DAILY 08/17/20 fentaNYL [Fentanyl] 50 mcg TD Q72H 08/17/20 Review of Systems per HPI <Beatriz Santizo - Last Filed: 02/12/23 13:27> Physical Examination - Physical Exam General: Alert, In no apparent distress, Other (shortness of breath with speaking) HEENT: Atraumatic, Normocephalic, PERRLA Neck: Supple, 2+ carotid pulse no bruit Respiratory: Diminished Cardiovascular: No edema, Regular rate/rhythm Capillary refill: <2 Seconds Gastrointestinal: Normal bowel sounds, Soft and benign Musculoskeletal: No clubbing, No swelling Integumentary: No rashes, No breakdown Neurological: Other - Studies Laboratory Data (last 24 hrs) 02/12/23 10:59 WBC 24.70 H Hgb 13.8 Hct 42.6 Plt Count 219 Microbiology Data (last 24 hrs): 02/12/23 10:59 Nasopharnyx Influenza Type A Antigen Screen - Final 02/12/23 10:59 Nasopharnyx Influenza Type B Antigen Screen - Final <Beatriz Santizo - Last Filed: 02/12/23 13:27> - Studies Laboratory Data (last 24 hrs) 02/12/23 02/12/23 02/12/23 12:03 12:03 10:59 WBC 24.70 H Hgb 13.8 Hct 42.6 Plt Count 219 PT 17.6 H INR 1.62 APTT 28.4 Sodium 135 L Potassium 3.2 L BUN 14 Creatinine 0.55 Glucose 241 H Magnesium 1.1 L Microbiology Data (last 24 hrs): 02/12/23 10:59 Nasopharnyx Influenza Type A Antigen Screen - Final 02/12/23 10:59 Nasopharnyx Influenza Type B Antigen Screen - Final <Bryan Otero - Last Filed: 02/12/23 16:33> Assessment and Plan - Plan Assessment plan Acute hypoxic respiratory failure secondary to pneumonia Lactic acidosis Pulmonary consult, O2 keep sats greater than 90% IV fluids, IV cefepime, IV azithromycin, nebs, failed for outpatient treatment for pneumonia. chest x-ray IMPRESSION: Mild opacity right lateral base may indicate a mild pneumonia, laboratory evaluation WBCs 24.70, left shift 82.7, elevated lactic 2.5, troponin normal at 38, UA pending, SARS, negative Elevated BNP elevated BNP 578 Anorexia Generalized weakness PT eval Metastatic breast cancer mets to the liver, pancreas chemotherapy Follows Dr. Mathur Hypokalemia Hypomagnesia Hyponatremia mild hypokalemia 3.2 mild hyponatremia 135 magnesium 1.1, Trend electrolytes replace as needed IV fluids chronic back pain resume aprop home meds Insulin-dependent diabetes Accu-Cheks, sliding scale insulin, resume home long-acting insulin blood glucose 141 hyperlipidemia Resume home meds Full code DVT Diet diabetic Disposition: she lives at home with son, ambulates with a walker. May need home health with PT prior to discharge Discharge Plan: Home Plan to discharge in: 48 Hours - Advance Directives Does patient have a Living Will: No Does patient have a Durable POA for Healthcare: No - Code Status/Comfort Care Code Status: Full Code Critical Care: No Time Spent Managing Pts Care (In Minutes): 55 <Beatriz Santizo - Last Filed: 02/12/23 13:27> - Plan Pt seen and examined. I agree with the note by the [employer]. Pt is a 67 yo female with past medical history of breast cancer with mets to the pancreas and liver, on chemotherapy, chronic back pain, diabetes, and hyperlipidemia presents presents to the ER with shortness of breath, cough, small amount of hemoptysis. On admission, CXR shows right lower lobe pneumonia. Lab studies show K 3.2, glucose 241, lactate 2.5, wbc 24.7. A/P: Severe sepsis 2/2 RLL Pneumonia: Will continue cefepime and azithro. Follow up blood cx. Will trend lactate lactate. Hypokalemia: K is 3.2. Will replete and monitor. DM : Continue accuchek, SSI and ADA diet HLD: statin Hx of breast cancer with mets to the pancreas and liver: pt is getting Chemotherapy. Will follow up with Dr. Mathur. DVT ppx: lovenox. <Bryan Otero - Last Filed: 02/12/23 16:33>
[2023-02-12] MEDS ORDERED: ALBUTEROL 2.5 MG/3 ML NEB SOL NEB PRN (12:16)
[2023-02-12 12:37] LABS: Protime INR 1.62
[2023-02-12 12:38] LABS: Magnesium 1.1 mg/dL (1.6-2.4); Potassium 3.2 mEq/L (3.5-5.1)
[2023-02-12 13:02] LABS: Blood Morphology Comment NOT SEEN (NOT SEEN); Platelet Estimate ADEQ; White Blood Cell Scan OK (OK)
[2023-02-12] MEDS ORDERED: MORPHINE 4 MG/ML SYR ONE (17:46)
[2023-02-12] MEDS ORDERED: CEFEPIME 2 GM VIAL ONE (17:46)
[2023-02-12] MEDS ORDERED: NA CHLORIDE 0.9% 100 ML ONE (17:47)
[2023-02-12] MEDS ORDERED: NA CHLORIDE 0.9% 1,000 ML ONE (17:47)
[2023-02-12] MEDS: CEFEPIME 2 GM in NA CHLORIDE 0.9% 100 ML IV SCH (18:10)
[2023-02-12] MEDS: NA CHLORIDE 0.9% 1,000 ML IV SCH (18:10)
[2023-02-12] MEDS: MORPHINE 4 MG/ML SYR IV PRN ×2 (18:10→23:32)
[2023-02-12 20:26] VITALS: BMI 25.8
[2023-02-12] MEDS: INSULIN GLARGINE 100 UNIT/ML SQ SCH (20:47)
[2023-02-13] MEDS: ZOLPIDEM TARTRATE 5 MG TABLET PO PRN ×2 (00:21→20:57)
[2023-02-13] MEDS: CEFEPIME 2 GM in NA CHLORIDE 0.9% 100 ML IV SCH ×3 (00:21→16:29)
[2023-02-13] MEDS ORDERED: KETOROLAC 30 MG/ML INJ IV ONE (03:54)
[2023-02-13] MEDS: NA CHLORIDE 0.9% 1,000 ML IV SCH (04:10)
[2023-02-13] MEDS: MORPHINE 4 MG/ML SYR IV PRN ×2 (06:23→22:17)
[2023-02-13] MEDS ORDERED: VANCOMYCIN 1 GM in NA CHLORIDE 0.9% 250 ML IVPB SCH (07:00)
[2023-02-13] MEDS: VANCOMYCIN 1.25 GM in NA CHLORIDE 0.9% 250 ML IVPB SCH ×2 (08:36→20:57)
[2023-02-13] MEDS ORDERED: AZITHROMYCIN IV 500 MG in NA CHLORIDE 0.9% 250 ML IVPB SCH (09:00)
[2023-02-13 09:06] LABS: Absolute Lymphocytes (CBC) 2.5 K/uL (0.7-4.9); Hematocrit 35.1 % (36.0-45.0); Lymphocytes % 10.2 % (15.3-44.8); MCV 88.7 fL (80-100); MPV 9.9 fL (7.6-11.3); Magnesium 1.2 mg/dL (1.6-2.4); Platelets 226 thou/uL (152-406); Potassium 3.5 mEq/L (3.5-5.1); RBC Red Blood Cell Count 3.96 M/uL (3.86-4.86)
[2023-02-13 09:48] LABS: Blood Morphology Comment NOT SEEN (NOT SEEN); Platelet Estimate ADEQ; White Blood Cell Scan OK (OK)
--- NOTE | 2023-02-13 09:59 | P.PN ---
Subjective Date of Service: 02/13/23 Chief Complaint: Pneumonia Subjective: C/O voiced (SOB, Unable to sleep in the bed) Patient is alert and oriented Sitting up in the bedside recliner Breathing normally on oxygen 2 L/min Reporting SOB with mild exertion, unable to sleep in the bed NAD Vital signs stable <Demetrius Manuel - Last Filed: 02/13/23 10:12> Date of Service: 02/22/23 <ShannaBryan Familia - Last Filed: 02/22/23 19:59> Review of Systems 10-point ROS is otherwise unremarkable <ManuelShun chatmanregina - Last Filed: 02/13/23 10:12> Physical Examination - Vital Signs Temperature: 97.3 F Blood Pressure: 101/55 Pulse: 69 Respirations: 16 Pulse Ox (%): 95 - Physical Exam General: Alert, Oriented x3 HEENT: Atraumatic, Normocephalic Neck: Supple, JVD not distended Respiratory: Clear to auscultation bilaterally, Normal air movement Cardiovascular: No edema, Regular rate/rhythm, Edema (1+TESSA) Capillary refill: <2 Seconds Gastrointestinal: Normal bowel sounds, Soft and benign Musculoskeletal: No clubbing, No contractures Integumentary: Other (Multiple Ecchymotic lesions on both arms) Neurological: Normal speech, Normal tone, Normal affect - Studies Laboratory Data (last 24 hrs) 02/12/23 02/12/23 02/12/23 12:03 12:03 10:59 WBC 24.70 H Hgb 13.8 Hct 42.6 Plt Count 219 PT 17.6 H INR 1.62 APTT 28.4 Sodium 135 L Potassium 3.2 L BUN 14 Creatinine 0.55 Glucose 241 H Magnesium 1.1 L Microbiology Data (last 24 hrs): 02/12/23 10:59 Nasopharnyx Influenza Type A Antigen Screen - Final 02/12/23 10:59 Nasopharnyx Influenza Type B Antigen Screen - Final <Shun Manuelregina - Last Filed: 02/13/23 10:12> Assessment And Plan - Current Problems (Diagnosis) (1) Acute respiratory failure Status: Acute Plan: Acute hypoxic respiratory failure secondary to pneumonia Lactic acidosis Pulmonary consult, O2 keep sats greater than 90% IV fluids, IV cefepime, IV Vanco as the WBC continue to be high, 24.4 today, nebs, failed for outpatient treatment for pneumonia. chest x-ray IMPRESSION: Mild opacity right lateral base may indicate a mild pneumonia, laboratory evaluation WBCs 24.40, SARS, negative Qualifiers: Respiratory failure complication: hypoxia Qualified Code(s): J96.01 - Acute respiratory failure with hypoxia (2) Pneumonia Status: Acute Qualifiers: Pneumonia type: due to unspecified organism Laterality: right (3) Leukocytosis Status: Acute (4) COPD (chronic obstructive pulmonary disease) Status: Chronic Plan: Chronic, SOB with Mild exertion BL air entry clear, No Wheezes/crackles On O2 2lpm via nasal canula Unable to sleep on the bed Qualifiers: COPD type: COPD with acute lower respiratory infection Qualified Code(s): J44.0 - Chronic obstructive pulmonary disease with (acute) lower respiratory infection (5) DM2 (diabetes mellitus, type 2) Status: Chronic Plan: Insulin-dependent diabetes Accu-Cheks, sliding scale insulin, resume home long-acting insulin blood glucose 219 Check BS ac&Hs with RSSI Hypoglycemia precautions Qualifiers: Diabetes mellitus snf insulin use: with exterminator helper use Diabetes mellitus complication status: with hyperglycemia Qualified Code(s): E11.65 - Type 2 diabetes mellitus with hyperglycemia; Z79.4 - custodial (current) use of insulin Discharge Plan: Home Plan to discharge in: 48 Hours - Code Status/Comfort Care Code Status Assessed: Yes (Full code) Code Status: Full Code Physician Review: Patient Assessed, Agree with Above Assessment and Plan Critical Care: No Time Spent Managing PTS Care (In Minutes): 35 (minutes) <Demetrius Manuel - Last Filed: 02/13/23 10:12> Physician Review Additional Text: 02/22/23 19:58 Pt seen and examined. Will continue antibiotics for the pneumonia. <Bryan Otero - Last Filed: 02/22/23 19:59>
[2023-02-13] MEDS ORDERED: GLUCAGON 1 MG/VIAL IM PRN (10:21)
[2023-02-13] MEDS ORDERED: D50W 25 GM/50 ML SYRINGE IV PRN (10:21)
[2023-02-13] MEDS ORDERED: D10W 125 ML IV PRN (10:24)
[2023-02-13] MEDS: INSULIN REGULAR (HUMAN) 100 UNIT/ML SQ SCH ×2 (12:00→16:42)
--- NOTE | 2023-02-13 12:33 | P.CNS ---
Date of Consult: 02/13/23 Reason for Consult: Shortness of breath possible pneumonia Chief Complaint: Shortness of breath History of Present Illness: Patient is 67 years of age with a past medical history of breast cancer patient also has pancreatic cancer with mets to the liver she has multiple medical problems including very heavy smoker admitted from the emergency room with shortness of breath cough small amount of hemoptysis patient was treated as an outpatient for pneumonia she is following up with oncology and was treated with chemotherapy been complaining of progressive dyspnea associated with some generalized weakness very poor appetite Allergies adhesive tape Allergy (Verified 10/08/20 14:26) Rash Home Medications: ALPRAZolam [Alprazolam] 1 mg PO BID 08/17/20 Ascorbic Acid [Vitamin C] 500 mg PO DAILY 08/17/20 Aspirin [Aspirin EC 81 MG] 81 mg PO BEDTIME 08/17/20 Baclofen 10 mg PO BID 08/17/20 Cholecalciferol (Vitamin D3) [Vitamin D3] 1,000 unit PO DAILY 08/17/20 Cholestyramine (with Sugar) [Cholestyramine Packet] 4 gm PO DAILY 08/17/20 Diclofenac Sodium [Diclo Gel] 1 each TP PRN PRN 08/17/20 Esomeprazole Magnesium 40 mg PO DAILY 08/17/20 Gabapentin 300 mg PO TID 08/17/20 Insulin Glargine Human [Lantus] 20 unit SQ BID 08/17/20 Metformin HCl 1,000 mg PO BIDWM 08/17/20 Multivitamin [One-Daily Multi-Vitamin] 1 each PO DAILY 08/17/20 [place]-3 Fatty Acids [[place]-3] 500 mg PO DAILY 08/17/20 Ondansetron HCl 4 mg PO Q8HP PRN 08/17/20 Pramipexole [Mirapex] 0.25 mg PO BEDTIME 08/17/20 Sertraline [Zoloft] 50 mg PO DAILY 08/17/20 Simvastatin 40 mg PO BEDTIME 08/17/20 Triamcinolone 0.1% Crm [Kenalog 0.1% Cream] 15 appl TOP PRN PRN 08/17/20 Vitamin E 400 unit PO DAILY 08/17/20 fentaNYL [Fentanyl] 50 mcg TD Q72H 08/17/20 - Past Medical/Surgical History Diabetic: Yes -: COPD -: Diabetes mellitus type 2 insulin-dependent -: Hyperlipidemia -: Depression with anxiety -: Chronic pain -: Breast cancer -: Pancreatic Ca on Chemotherapy -: HYSTERECTOMY -: breast flap/abdominal sx -: BACK SURGERY -: BACLOFEN PAIN PUMP Psychosocial/ Personal History: Patient lives at home - Family History Father Medical History: Diabetes, Cancer Notes: pt states father was borderline diabetic, diet at the age of 56 from cancer. Mother Medical History: Cancer Notes: pt states mother at the age of 61 from cancer (female cancer). - Social History Smoking Status: Current some day smoker Alcohol use: No CD- Drugs: No Caffeine use: Yes Review of Systems 10-point ROS is otherwise unremarkable General: Weakness Respiratory: Cough, Shortness of Breath Physical Examination Temp Pulse Resp BP Pulse Ox 97.3 F 69 16 101/55 L 95 02/13/23 10:17 02/13/23 10:17 02/13/23 10:17 02/13/23 10:17 02/13/23 10:17 General: Alert, In no apparent distress Respiratory: Clear to auscultation bilaterally, Diminished Cardiovascular: No edema, Regular rate/rhythm, Normal S1 S2 Gastrointestinal: Normal bowel sounds, Soft and benign Musculoskeletal: No clubbing, No swelling Integumentary: No rashes, No breakdown Laboratory Data (last 24 hrs) 02/12/23 02/12/23 02/12/23 12:03 12:03 10:59 WBC 24.70 H Hgb 13.8 Hct 42.6 Plt Count 219 PT 17.6 H INR 1.62 APTT 28.4 Sodium 135 L Potassium 3.2 L BUN 14 Creatinine 0.55 Glucose 241 H Magnesium 1.1 L - Problems (1) Shortness of breath Current Visit: Yes Status: Acute Plan: Patient is 67 years of age with a history of breast cancer with metastatic disease a very heavy smoker admitted with shortness of breath chest x-ray shows mild cardiomegaly possible retrocardiac infiltrate elevated white count of 24,000 elevated BNP over 5000 high risk for thromboembolism I will do CT pulmonary angiogram continue with broad-spectrum antibiotics for now patient may have underlying obstructive airways disease is a very heavy smoker overall prognosis is very poor
[2023-02-13] MEDS: ARFORMOTEROL TARTRATE 15 MCG/2 ML VIAL.NEB NEB SCH ×2 (12:34→19:23)
[2023-02-13] MEDS: IPRATROPIUM BROM 0.5MG/2.5ML NEB SCH ×2 (14:12→19:23)
[2023-02-13 16:33] LABS: Urine Bacteria <20 /HPF (<20); Urine Granular Casts 0-5 /LPF (None Seen); Urine Mucus 3+ /HPF (None Seen)
[2023-02-13 16:35] LABS: Urine Clarity Turbid (Clear); Urine Color Yellow (Yellow)
[2023-02-13 16:36] LABS: Specific Gravity 1.025 (1.005-1.030); Urine Bilirubin Negative (Negative); Urine Blood 1+ (Negative); Urine Glucose Negative (Negative); Urine Protein 1+ (Negative); Urine Urobilinogen Normal (Normal)
[2023-02-13] MEDS: ACETAMINOPHEN 500 MG TAB PO PRN (20:56)
[2023-02-13] MEDS: BENZONATATE 100 MG CAP PO PRN (20:57)
[2023-02-13] MEDS: INSULIN GLARGINE 100 UNIT/ML SQ SCH (20:58)
[2023-02-14] MEDS: CEFEPIME 2 GM in NA CHLORIDE 0.9% 100 ML IV SCH ×3 (00:29→16:59)
[2023-02-14] MEDS: IPRATROPIUM BROM 0.5MG/2.5ML NEB SCH ×4 (00:49→19:38)
[2023-02-14] MEDS: MORPHINE 4 MG/ML SYR IV PRN ×4 (03:17→21:28)
[2023-02-14 03:35] LABS: Absolute Lymphocytes (CBC) 3.3 K/uL (0.7-4.9); Hematocrit 37.8 % (36.0-45.0); Lymphocytes % 14.3 % (15.3-44.8); MCV 88.8 fL (80-100); MPV 9.9 fL (7.6-11.3); Platelets 278 thou/uL (152-406); RBC Red Blood Cell Count 4.26 M/uL (3.86-4.86)
[2023-02-14] MEDS ORDERED: KETOROLAC 30 MG/ML INJ IV ONE (04:06)
[2023-02-14 04:21] LABS: Magnesium 1.2 mg/dL (1.6-2.4); Phosphorus 2.3 mg/dL (2.5-4.9); Potassium 3.3 mEq/L (3.5-5.1)
[2023-02-14] MEDS: INSULIN REGULAR (HUMAN) 100 UNIT/ML SQ SCH ×4 (06:29→18:00)
[2023-02-14] MEDS ORDERED: MAGNESIUM 50% 3 GM in NA CHLORIDE 0.9% 100 ML IV ONE (06:51)
[2023-02-14] MEDS ORDERED: Magnesium Sulfate 2gm IVPB 2 G/50 ML BAG IV ONE (07:00)
[2023-02-14] MEDS: VANCOMYCIN 1.25 GM in NA CHLORIDE 0.9% 250 ML IVPB SCH ×2 (08:00→21:26)
[2023-02-14] MEDS ORDERED: MAGNESIUM SULFATE 1 gm IVPB 1 GM/100 ML BAG IV ONE (08:00)
[2023-02-14] MEDS: ARFORMOTEROL TARTRATE 15 MCG/2 ML VIAL.NEB NEB SCH ×2 (08:06→19:38)
[2023-02-14] MEDS: POTASS/SODIUM PHOSPHATE 1 PKT POWD.PACK PO SCH ×2 (08:50→10:25)
[2023-02-14] MEDS: FUROSEMIDE 20 MG/ 2ML VIAL IV SCH (08:52)
[2023-02-14] MEDS ORDERED: POTASSIUM CL SA 10 MEQ TAB PO ONE (09:00)
[2023-02-14] MEDS: ACETAMINOPHEN 500 MG TAB PO PRN (10:30)
--- NOTE | 2023-02-14 10:44 | P.PN ---
Subjective Date of Service: 02/14/23 Chief Complaint: Shortness of breath Subjective: No C/O voiced, Improving, Doing well Patient is alert and oriented Sitting up in the bed Breathing normally on oxygen 2 L/min Reporting SOB with mild exertion, unable to sleep in the bed NAD Vital signs stable <Demetrius Manuel - Last Filed: 02/14/23 10:41> Date of Service: 02/15/23 <Bryan Otero Familia - Last Filed: 02/15/23 06:53> Review of Systems 10-point ROS is otherwise unremarkable <Demetrius Manuel - Last Filed: 02/14/23 10:41> Physical Examination - Vital Signs Temperature: 96.8 F Blood Pressure: 107/58 Pulse: 82 Respirations: 16 Pulse Ox (%): 95 - Physical Exam General: Alert, Oriented x3, Cachectic HEENT: PERRLA Neck: Supple, 2+ carotid pulse no bruit Respiratory: Clear to auscultation bilaterally, Normal air movement Cardiovascular: No edema, Regular rate/rhythm Capillary refill: <2 Seconds Gastrointestinal: Normal bowel sounds, Soft and benign Musculoskeletal: No clubbing, No swelling Integumentary: No rashes, No breakdown Neurological: Normal speech, Normal tone <Demetrius Manuel - Last Filed: 02/14/23 10:41> Assessment And Plan - Current Problems (Diagnosis) (1) Acute respiratory failure Current Visit: Yes Status: Acute Plan: Acute hypoxic respiratory failure secondary to pneumonia Lactic acidosis Pulmonary consult, O2 keep sats greater than 90% IV fluids, IV cefepime, IV Vanco as the WBC continue to be high, 23.1 today, nebs, failed for outpatient treatment for pneumonia. chest x-ray IMPRESSION: Mild opacity right lateral base may indicate a mild pneumonia, laboratory evaluation WBCs 23.1 SARS, negative Qualifiers: Respiratory failure complication: hypoxia Qualified Code(s): J96.01 - Acute respiratory failure with hypoxia (2) Pneumonia Current Visit: Yes Status: Acute Qualifiers: Pneumonia type: due to unspecified organism Laterality: right (3) Leukocytosis Current Visit: Yes Status: Acute (4) COPD (chronic obstructive pulmonary disease) Current Visit: Yes Status: Chronic Plan: Chronic, SOB with Mild exertion BL air entry clear, No Wheezes/crackles On O2 2lpm via nasal canula Unable to sleep on the bed Qualifiers: COPD type: COPD with acute lower respiratory infection Qualified Code(s): J44.0 - Chronic obstructive pulmonary disease with (acute) lower respiratory infection (5) DM2 (diabetes mellitus, type 2) Current Visit: No Status: Chronic Plan: Insulin-dependent diabetes Accu-Cheks, sliding scale insulin, resume home long-acting insulin blood glucose improving Check BS ac&Hs with RSSI Hypoglycemia precautions Qualifiers: Diabetes mellitus termite technician insulin use: with termite technician use Diabetes mellitus complication status: with hyperglycemia Qualified Code(s): E11.65 - Type 2 diabetes mellitus with hyperglycemia; Z79.4 - senior care (current) use of insulin Discharge Plan: Home Plan to discharge in: 48 Hours - Code Status/Comfort Care Code Status Assessed: Yes (full code) Code Status: Full Code Physician Review: Patient Assessed, Agree with Above Assessment and Plan Critical Care: No Time Spent Managing PTS Care (In Minutes): 35 (minutes) <Demetrius Manuel - Last Filed: 02/14/23 10:41> Physician Review Additional Text: 02/15/23 06:52 Pt seen and examined. i agree with the note by the RN PRACTITIONER. Will continue iv vanc and cefepime for pneumonia. Will r/o DVT. If positive, will start therapeutic lovenox. Her family is considering hospice care in the long run. <Bryan Otero - Last Filed: 02/15/23 06:53>
--- NOTE | 2023-02-14 12:25 | P.PN ---
Subjective Date of Service: 02/14/23 Chief Complaint: Shortness of breath No change in patient's condition still continues to complain of shortness of breath and right-sided chest pain requiring pain medications unable to do CT pulmonary angiogram Review of Systems General: Weakness Respiratory: Cough, Shortness of Breath Cardiovascular: Chest Pain Physical Examination - Vital Signs Temperature: 96.8 F Blood Pressure: 107/58 Pulse: 82 Respirations: 16 Pulse Ox (%): 95 - Physical Exam General: Alert, Oriented x3, Mild distress Respiratory: Clear to auscultation bilaterally, Diminished Cardiovascular: No edema, Regular rate/rhythm, Normal S1 S2 Assessment And Plan - Current Problems (Diagnosis) (1) Shortness of breath Current Visit: Yes Status: Acute Plan: Patient is 67 years of age admitted with shortness of breath unable to do CT pulmonary angiogram recommend full anticoagulation high risk for thromboembolism prognosis is poor apparently the patient is considering DNR hospice care white count is declining cultures are pending sputum cultures are also pending I have ordered venous Doppler lower extremity in addition to 2D echocardiogram Physician Review: Patient Assessed, Agree with Above Assessment and Plan
--- NOTE | 2023-02-14 20:39 | RAD REPORT ---
EXAM DESCRIPTION: US - Extrem Venous W Compress Anders - 02/14/2023 8:25 pm CLINICAL HISTORY: RO DVT Bilateral leg edema and swelling. COMPARISON: EXTREMITY NONVASCULAR dated 12/14/2009 TECHNIQUE: Real-time sonographic interrogation of the left and right lower extremity deep venous sys tems was performed. FINDINGS: Thrombus is present in the right greater saphenous vein and right popliteal vein. Thrombus also noted in the left proximal femoral vein and left popliteal vein. IMPRESSION: Positive for bilateral DVT. The findings were discussed with Dr. Rangel On 02/14/2013 at 8:35 p.m. by telephone.
[2023-02-14] MEDS: INSULIN GLARGINE 100 UNIT/ML SQ SCH (21:25)
[2023-02-14] MEDS: ENOXAPARIN 80 MG/0.8 ML SQ SCH (21:25)
[2023-02-15] MEDS: IPRATROPIUM BROM 0.5MG/2.5ML NEB SCH ×4 (00:41→19:15)
[2023-02-15] MEDS: CEFEPIME 2 GM in NA CHLORIDE 0.9% 100 ML IV SCH ×3 (00:50→17:19)
[2023-02-15 02:36] LABS: Absolute Lymphocytes (CBC) 1.9 K/uL (0.7-4.9); Lymphocytes % 11.2 % (15.3-44.8); MCV 89.3 fL (80-100); MPV 9.9 fL (7.6-11.3); Platelets 337 thou/uL (152-406); RBC Red Blood Cell Count 4.04 M/uL (3.86-4.86)
[2023-02-15 02:56] LABS: Magnesium 1.7 mg/dL (1.6-2.4); Potassium 3.8 mEq/L (3.5-5.1)
[2023-02-15 05:47] LABS: Phosphorus 2.6 mg/dL (2.5-4.9)
[2023-02-15] MEDS: INSULIN REGULAR (HUMAN) 100 UNIT/ML SQ SCH ×4 (06:15→20:02)
[2023-02-15] MEDS: ONDANSETRON 4 MG/2 ML VIAL IV PRN (06:50)
[2023-02-15] MEDS ORDERED: MAGNESIUM SULFATE 1 gm IVPB 1 GM/100 ML BAG IV ONE (07:00)
[2023-02-15] MEDS: ARFORMOTEROL TARTRATE 15 MCG/2 ML VIAL.NEB NEB SCH ×2 (07:20→19:15)
[2023-02-15] MEDS: VANCOMYCIN 1.25 GM in NA CHLORIDE 0.9% 250 ML IVPB SCH (08:00)
[2023-02-15] MEDS: MORPHINE 4 MG/ML SYR IV PRN ×3 (08:01→23:43)
[2023-02-15] MEDS: FUROSEMIDE 20 MG/ 2ML VIAL IV SCH (08:02)
[2023-02-15] MEDS: ENOXAPARIN 80 MG/0.8 ML SQ SCH (08:17)
[2023-02-15] MEDS: VANCOMYCIN 1 GM in NA CHLORIDE 0.9% 250 ML IVPB SCH ×2 (08:53→20:19)
[2023-02-15] MEDS ORDERED: POTASSIUM CL SA 10 MEQ TAB PO ONE (09:00)
--- NOTE | 2023-02-15 10:27 | P.PN ---
Subjective Date of Service: 02/15/23 Chief Complaint: Shortness of breath Subjective: No new changes, Improving, Doing well Patient is alert and oriented Sitting up in the bed Breathing normally on oxygen 2 L/min Reporting SOB with mild exertion, NAD Vital signs stable <Demetrius Manuel - Last Filed: 02/15/23 10:24> Date of Service: 02/17/23 <Bryan Otero - Last Filed: 02/17/23 13:44> Review of Systems 10-point ROS is otherwise unremarkable <Demetrius Manuel - Last Filed: 02/15/23 10:24> Physical Examination - Vital Signs Temperature: 97.9 F Blood Pressure: 116/53 Pulse: 112 Respirations: 20 Pulse Ox (%): 96 - Physical Exam General: Alert, Oriented x3 HEENT: Atraumatic, Normocephalic Neck: Supple, 2+ carotid pulse no bruit Respiratory: Clear to auscultation bilaterally, Normal air movement Cardiovascular: No edema, Regular rate/rhythm Capillary refill: <2 Seconds Gastrointestinal: Normal bowel sounds, Soft and benign Musculoskeletal: No clubbing, No swelling Integumentary: No rashes, No breakdown Neurological: Normal gait, Normal speech <Demetrius Manuel - Last Filed: 02/15/23 10:24> - Studies Microbiology Data (last 24 hrs): 02/12/23 11:20 Blood - Blood Aerobic Blood Culture - Final No growth in 5 days. 02/12/23 11:20 Blood - Blood Anaerobic Blood Culture - Final No growth in 5 days. 02/12/23 10:59 Blood - Blood Aerobic Blood Culture - Final No growth in 5 days. 02/12/23 10:59 Blood - Blood Anaerobic Blood Culture - Final No growth in 5 days. <Bryan Otero - Last Filed: 02/17/23 13:44> Assessment And Plan - Current Problems (Diagnosis) (1) Acute respiratory failure Current Visit: Yes Status: Acute Plan: Acute hypoxic respiratory failure secondary to pneumonia Improving. Lwuckocytosis 24.4>23>17.4 Lactic acidosis Pulmonary consult, O2 keep sats greater than 90% IV fluids, IV cefepime, IV Vanco as the WBC continue to be high, 23.1 today, nebs, failed for outpatient treatment for pneumonia. chest x-ray IMPRESSION: Mild opacity right lateral base may indicate a mild pneumonia, SARS, negative Qualifiers: Respiratory failure complication: hypoxia Qualified Code(s): J96.01 - Acute respiratory failure with hypoxia (2) Pneumonia Current Visit: Yes Status: Acute Qualifiers: Pneumonia type: due to unspecified organism Laterality: right (3) Leukocytosis Current Visit: Yes Status: Acute (4) COPD (chronic obstructive pulmonary disease) Current Visit: Yes Status: Chronic Plan: Chronic, SOB with Mild exertion BL air entry clear, No Wheezes/crackles Bronchidilators as needed On O2 2lpm via nasal canula Unable to sleep on the bed Qualifiers: COPD type: COPD with acute lower respiratory infection Qualified Code(s): J44.0 - Chronic obstructive pulmonary disease with (acute) lower respiratory infection (5) DM2 (diabetes mellitus, type 2) Current Visit: No Status: Chronic Plan: Insulin-dependent diabetes Accu-Cheks, sliding scale insulin, resume home long-acting insulin blood glucose improving Check BS ac&Hs with RSSI Hypoglycemia precautions Qualifiers: Diabetes mellitus pcu rn insulin use: with pcu rn use Diabetes mellitus complication status: with hyperglycemia Qualified Code(s): E11.65 - Type 2 diabetes mellitus with hyperglycemia; Z79.4 - [facility] (current) use of insulin Discharge Plan: Home Plan to discharge in: 48 Hours - Code Status/Comfort Care Code Status Assessed: Yes (full code) Code Status: Full Code Physician Review: Patient Assessed, Agree with Above Assessment and Plan Critical Care: No Time Spent Managing PTS Care (In Minutes): 35 (minutes) <Demetrius Manuel - Last Filed: 02/15/23 10:24> Physician Review Additional Text: 02/17/23 13:43 Pt seen and examined. I agree with the note by the LAST IRONER. Continue therapeutic lovenox for DVT and possible PE. Echo shows enlargement of RV. <Bryan Otero - Last Filed: 02/17/23 13:44>
[2023-02-15] MEDS: ACETAMINOPHEN 500 MG TAB PO PRN (12:19)
--- NOTE | 2023-02-15 12:44 | P.PN ---
Subjective Date of Service: 02/15/23 Chief Complaint: DVT No change in patient's condition patient is still short of breath recently lower extremity Doppler was positive for DVT Review of Systems General: Weakness Respiratory: Shortness of Breath Physical Examination - Vital Signs Temperature: 97.3 F Blood Pressure: 98/56 Pulse: 90 Respirations: 20 Pulse Ox (%): 99 - Physical Exam General: Alert, Oriented x3 Respiratory: Clear to auscultation bilaterally Cardiovascular: No edema, Regular rate/rhythm, Normal S1 S2 Assessment And Plan - Current Problems (Diagnosis) (1) DVT (deep venous thrombosis) Current Visit: Yes Status: Acute Plan: Patient has bilateral DVT high risk for thromboembolism Jover to p.oAlcides Pete white count is declining repeat chest x-ray lifelong anticoagulation Qualifiers: Laterality: bilateral Physician Review: Patient Assessed, Agree with Above Assessment and Plan
--- NOTE | 2023-02-15 13:20 | ECHO ---
HEIGHT: 5 ft 8 in WEIGHT: 169 lb 12.095 oz DATE OF STUDY: 02/15/[address]: Reyes Rangel MD 2-DIMENSIONAL: YES M.MODE: YES DOPPLER: YES COLOR FLOW: YES TDS: NO PORTABLE: YES DEFINITY: NO BUBBLE STUDY: NO DIAGNOSIS: DYSPNEA CARDIAC HISTORY: CATHERIZATION: NO SURGERY: NO PROSTHETIC VALVE: NO PACEMAKER: NO MEASUREMENTS (cm) DIASTOLIC (NORMALS) SYSTOLIC (NORMALS) IVSd 1.2 (0.6-1.2) LA Diam 2.8 (1.9-4.0) LVEF 50% LVIDd 3.6 (3.5-5.7) LVIDs 3.1 (2.0-3.5) %FS 14% LVPWd 1.2 (0.6-1.2) Ao Diam 2.7 (2.0-3.7) 2 DIMENSIONAL ASSESSMENT: RIGHT ATRIUM: DILATED LEFT ATRIUM: DILATED RIGHT VENTRICLE: LEFT VENTRICLE: EJECTION FRACTION 50% TRICUSPID VALVE: MODERATE TRICUSPID REGURGITATION MITRAL VALVE: PULMONIC VALVE: AORTIC VALVE: NON CORONARY CUSP CALCIFICATION, VEGETATION CANNOT BE RULED OUT PERICARDIAL EFFUSION: NONE AORTIC ROOT: LEFT VENTRICULAR WALL MOTION: DOPPLER/COLOR FLOW: SEVERE PULMONARY HYPERTENSION. RIGHT VENTRICULAR SYSTOLIC PRESSURE 80 mmHg. COMMENTS: 1. RIGHT VENTRICLE DILATED AND SYSTOLIC FUNCTION REDUCED. 2. AORTIC VALVE NON CORONARY CUSP CALCIFICATION, VEGETATION CANNOT BE RULED OUT. 3. LEFT VENTRICULAR EJECTION FRACTION 50%. 4. MODERATE TRICUSPID REGURGITATION. TECHNOLOGIST: Mckenna GARCIA
--- NOTE | 2023-02-15 14:44 | RAD REPORT ---
[facility] CLINICAL HISTORY: pneumonia ? COMPARISON: Chest Single View dated 02/12/2023; Chest Single View dated 02/05/2023; Chest Single View dated 10/06/2021; Chest Single View dated 07/21/2021 TECHNIQUE: Portable AP view of the chest. FINDINGS: Left chest wall medication port unchanged in position with catheter tip projecting over th e left innominate vein, unchanged. Progressive bibasilar airspace opacities with suggestion of small right more than left effusion. Decreased inspiratory effort contributes to some crowding of the centr al vascular markings. No pneumothorax or effusion. The cardiomediastinal contours are unremarkable. IMPRESSION: Progressive bibasilar opacities with suggestion of small effusion. Findings may relate t o atelectasis, volume overload, or early pneumonia. .
[2023-02-15] MEDS: LORazepam 2 MG/ML VIAL IV PRN (15:12)
[2023-02-15] MEDS: VANCOMYCIN 500 MG/VIAL ONE ×2 (19:54→20:01)
[2023-02-15] MEDS: NA CHLORIDE 0.9% 250 ML ONE ×2 (19:55→20:02)
[2023-02-15] MEDS: INSULIN GLARGINE 100 UNIT/ML SQ SCH (20:03)
[2023-02-15] MEDS: ZOLPIDEM TARTRATE 5 MG TABLET PO PRN (20:03)
[2023-02-15] MEDS ORDERED: APIXABAN 5 MG TABLET PO SCH (21:00)
[2023-02-16] MEDS: IPRATROPIUM BROM 0.5MG/2.5ML NEB SCH ×2 (00:45→07:40)
[2023-02-16] MEDS: CEFEPIME 2 GM in NA CHLORIDE 0.9% 100 ML IV SCH ×2 (01:00→08:34)
[2023-02-16] MEDS: MORPHINE 4 MG/ML SYR IV PRN ×4 (05:16→19:52)
[2023-02-16] MEDS: LORazepam 2 MG/ML VIAL IV PRN (05:17)
[2023-02-16] MEDS: INSULIN REGULAR (HUMAN) 100 UNIT/ML SQ SCH ×5 (06:00→21:00)
[2023-02-16 07:28] LABS: Absolute Lymphocytes (CBC) 1.9 K/uL (0.7-4.9); Hematocrit 33.1 % (36.0-45.0); MCV 89.4 fL (80-100); Platelets 375 thou/uL (152-406); RBC Red Blood Cell Count 3.71 M/uL (3.86-4.86)
[2023-02-16 07:34] LABS: Magnesium 1.5 mg/dL (1.6-2.4)
[2023-02-16] MEDS: ARFORMOTEROL TARTRATE 15 MCG/2 ML VIAL.NEB NEB SCH (07:40)
[2023-02-16] MEDS: ENOXAPARIN 80 MG/0.8 ML SQ SCH ×2 (08:45→19:52)
--- NOTE | 2023-02-16 09:05 | P.PN ---
Subjective Date of Service: 02/16/23 Chief Complaint: DVT Subjective: No new changes, Improving, Doing well Patient is alert and oriented Sitting up in the bed Breathing normally on oxygen 2 L/min Reporting SOB with mild exertion, Bilateral LE DVT on Eliquis NAD Vital signs stable <Demetrius Manuel - Last Filed: 02/16/23 09:00> Date of Service: 02/17/23 <Bryan Otero - Last Filed: 02/17/23 13:27> Review of Systems 10-point ROS is otherwise unremarkable <Demetrius Manuel - Last Filed: 02/16/23 09:00> Physical Examination - Vital Signs Temperature: 98.0 F Blood Pressure: 104/70 Pulse: 110 Respirations: 20 Pulse Ox (%): 93 - Physical Exam General: Oriented x3 HEENT: Atraumatic, Normocephalic Neck: Supple, 2+ carotid pulse no bruit Respiratory: Clear to auscultation bilaterally, Normal air movement Cardiovascular: No edema, Normal pulses, Normal S1 S2 Capillary refill: >2 Seconds Gastrointestinal: Normal bowel sounds, Soft and benign Musculoskeletal: No clubbing, No swelling Integumentary: No rashes, No significant lesion Neurological: Normal speech, Normal tone, Normal affect <Demetrius Manuel - Last Filed: 02/16/23 09:00> - Studies Microbiology Data (last 24 hrs): 02/12/23 11:20 Blood - Blood Aerobic Blood Culture - Final No growth in 5 days. 02/12/23 11:20 Blood - Blood Anaerobic Blood Culture - Final No growth in 5 days. 02/12/23 10:59 Blood - Blood Aerobic Blood Culture - Final No growth in 5 days. 02/12/23 10:59 Blood - Blood Anaerobic Blood Culture - Final No growth in 5 days. <Bryan Otero - Last Filed: 02/17/23 13:27> Assessment And Plan - Current Problems (Diagnosis) (1) Acute respiratory failure Current Visit: Yes Status: Acute Plan: Acute hypoxic respiratory failure secondary to pneumonia Improving. Leukocytosis 24.4>23>17.4>17.5 Afebrile Pulmonary consult, O2 keep sats greater than 90% IV fluids, IV cefepime, IV Vanco as the WBC continue to be decrease, nebs, failed for outpatient treatment for pneumonia. chest x-ray IMPRESSION: Mild opacity right lateral base may indicate a mild pneumonia, SARS, negative Qualifiers: Respiratory failure complication: hypoxia Qualified Code(s): J96.01 - Acute respiratory failure with hypoxia (2) Pneumonia Current Visit: Yes Status: Acute Qualifiers: Pneumonia type: due to unspecified organism Laterality: right (3) Leukocytosis Current Visit: Yes Status: Acute (4) COPD (chronic obstructive pulmonary disease) Current Visit: Yes Status: Chronic Plan: Chronic, SOB with Mild exertion BL air entry clear, No Wheezes/crackles Bronchidilators as needed On O2 2lpm via nasal canula Unable to sleep on the bed Qualifiers: COPD type: COPD with acute lower respiratory infection Qualified Code(s): J44.0 - Chronic obstructive pulmonary disease with (acute) lower respiratory in fection (5) DM2 (diabetes mellitus, type 2) Current Visit: No Status: Chronic Plan: Insulin-dependent diabetes Accu-Cheks, sliding scale insulin, resume home long-acting insulin blood glucose improving Check BS ac&Hs with RSSI Hypoglycemia precautions Qualifiers: Diabetes mellitus terminal operator insulin use: with terminal operator use Diabetes mellitus complication status: with hyperglycemia Qualified Code(s): E11.65 - Type 2 diabetes mellitus with hyperglycemia; Z79.4 - roasterman (current) use of insulin (6) DVT (deep venous thrombosis) Current Visit: Yes Status: Acute Plan: Patient has bilateral DVT high risk for thromboembolism Extrem Venous W Compress Anders - 02/14/2023 Thrombus is present in the right greater saphenous vein and right popliteal vein. Thrombus also noted in the left proximal femoral vein and left popliteal vein. Positive for bilateral DVT. On Eliquis 10mg po bid Qualifiers: DVT location: lower extremity Affected thrombotic vein of extremity: other lower extremity vein Laterality: bilateral Discharge Plan: Home Plan to discharge in: 48 Hours - Code Status/Comfort Care Code Status Assessed: Yes (full code) Code Status: Full Code Physician Review: Patient Assessed, Agree with Above Assessment and Plan Critical Care: No Time Spent Managing PTS Care (In Minutes): 35 (minutes) <Demetrius Manuel - Last Filed: 02/16/23 09:00> Physician Review Additional Text: 02/17/23 13:27 Pt seen and examined. I agree with the note by the ENVIRONMENTAL COMPLIANCE SPECIALIST. <Bryan Otero - Last Filed: 02/17/23 13:27>
[2023-02-16] MEDS: VANCOMYCIN 1 GM in NA CHLORIDE 0.9% 250 ML IVPB SCH (11:27)
--- NOTE | 2023-02-16 12:57 | P.PN ---
Subjective Date of Service: 02/16/23 Chief Complaint: DVT cor pulmonale Patient has right ventricular dilatation with cor pulmonale I suspect significant pulmonary embolism with the DVT patient is high risk he is hypoxic requiring oxygen Review of Systems General: Weakness Respiratory: Shortness of Breath Physical Examination - Vital Signs Temperature: 98.0 F Blood Pressure: 104/70 Pulse: 110 Respirations: 20 Pulse Ox (%): 93 - Physical Exam General: Alert, Oriented x3 Respiratory: Clear to auscultation bilaterally Cardiovascular: No edema, Regular rate/rhythm Assessment And Plan - Current Problems (Diagnosis) (1) DVT (deep venous thrombosis) Current Visit: Yes Status: Acute Plan: Patient has cor pulmonale right ventricular dilatation hypoxemia suspect is all due to pulmonary embolism and will need a CT pulmonary angiogram to confirm the high risk for thrombolytic agent for underlying malignancy consider transfer to a tertiary care center for catheter extraction DC cefepime Enterococcus in the urine Qualifiers: DVT location: lower extremity Affected thrombotic vein of extremity: other lower extremity vein Laterality: bilateral Physician Review: Patient Assessed, Agree with Above Assessment and Plan
--- NOTE | 2023-02-16 13:50 | EKG ---
Test Date: 2023-02-13 Test Time: 03:45:25 Route Sales Person: CAILIN MEASUREMENT RESULTS: Intervals: Rate: 108 MA: 118 QRSD: 86 QT: 380 QTc: 509 [place]: P: 67 MA: 118 QRS: 244 T: 150 INTERPRETIVE STATEMENTS: Sinus tachycardia with occasional premature ventricular complexes Right superior axis deviation Right ventricular hypertrophy Possible Inferior infarct, age undetermined Anteroseptal infarct, age undetermined ST & T wave abnormality, consider lateral ischemia Abnormal ECG Compared to ECG 02/12/2023 10:25:42 Right superior axis now present ST (T wave) deviation now present T-wave abnormality no longer present Myocardial infarct finding still present Possible ischemia still present Electronically Signed On 02-16-23 13:42:26 FIELD CONSULTANT by Hans Pérez
--- NOTE | 2023-02-16 13:50 | EKG ---
Test Date: 2023-02-13 Test Time: 03:48:30 Timber Management Assistant: CAILIN MEASUREMENT RESULTS: Intervals: Rate: 115 ID: [id number] QRSD: 86 QT: 372 QTc: 514 [place]: P: 47 ID: [id number] QRS: 245 T: 129 INTERPRETIVE STATEMENTS: Sinus tachycardia with frequent premature ventricular complexes Right superior axis deviation Right ventricular hypertrophy Anteroseptal infarct, age undetermined T wave abnormality, consider lateral ischemia Abnormal ECG Compared to ECG 02/13/2023 03:45:25 T-wave abnormality now present ST (T wave) deviation no longer present Myocardial infarct finding still present Possible ischemia still present Electronically Signed On 02-16-23 13:42:25 ELECTRICIAN ELEVATOR MAINTENANCE by Hans Pérez
[2023-02-16] MEDS: ACETAMINOPHEN 500 MG TAB PO PRN (13:52)
--- NOTE | 2023-02-16 13:54 | EKG ---
Test Date: 2023-02-12 Test Time: 10:25:42 Thermoplastic Technician: VITALIY MEASUREMENT RESULTS: Intervals: Rate: 114 CT: 122 QRSD: 92 QT: 376 QTc: 518 [place]: P: 86 CT: 122 QRS: 205 T: 108 INTERPRETIVE STATEMENTS: Sinus tachycardia with occasional premature ventricular complexes Right ventricular hypertrophy Anteroseptal infarct, age undetermined T wave abnormality, consider lateral ischemia Abnormal ECG Compared to ECG 01/17/2023 18:46:46 Ventricular premature complex(es) now present Myocardial infarct finding now present T-wave abnormality now present Possible ischemia now present Sinus rhythm no longer present Atrial premature complex(es) no longer present Short CT interval no longer present Electronically Signed On 02-16-23 13:44:15 POWER PLANT ENGINEER by Hans Pérez
[2023-02-16] MEDS: BENZONATATE 100 MG CAP PO PRN (19:52)
[2023-02-16] MEDS: ONDANSETRON 4 MG/2 ML VIAL IV PRN (19:52)
[2023-02-16] MEDS: DULERA 100/5 (MOMETASONE/FORMOTEROL) INHALER IH SCH (21:23)
[2023-02-16 22:22] VITALS: O2SAT 99
[2023-02-16] MEDS: INSULIN GLARGINE 100 UNIT/ML SQ SCH (22:40)
[2023-02-17] MEDS: VANCOMYCIN 1 GM in NA CHLORIDE 0.9% 250 ML IVPB SCH (01:10)
[2023-02-17] MEDS: BENZONATATE 100 MG CAP PO PRN ×2 (01:11→20:10)
[2023-02-17] MEDS: ZOLPIDEM TARTRATE 5 MG TABLET PO PRN (01:11)
[2023-02-17] MEDS: MORPHINE 4 MG/ML SYR IV PRN ×5 (01:11→20:11)
[2023-02-17] MEDS: ONDANSETRON 4 MG/2 ML VIAL IV PRN ×2 (04:54→20:10)
[2023-02-17] MEDS: LORazepam 2 MG/ML VIAL IV PRN (04:54)
[2023-02-17] MEDS: INSULIN REGULAR (HUMAN) 100 UNIT/ML SQ SCH ×4 (06:00→18:00)
[2023-02-17] MEDS: DULERA 100/5 (MOMETASONE/FORMOTEROL) INHALER IH SCH ×2 (09:16→20:15)
[2023-02-17] MEDS: ENOXAPARIN 80 MG/0.8 ML SQ SCH ×2 (09:16→20:10)
[2023-02-17 09:37] LABS: Absolute Lymphocytes (CBC) 2.4 K/uL (0.7-4.9); Hematocrit 33.8 % (36.0-45.0); Lymphocytes % 15.2 % (15.3-44.8); MCV 89.5 fL (80-100); MPV 9.1 fL (7.6-11.3); Platelets 469 thou/uL (152-406); RBC Red Blood Cell Count 3.77 M/uL (3.86-4.86)
--- NOTE | 2023-02-17 09:39 | P.PN ---
Subjective Date of Service: 02/17/23 Chief Complaint: DVT cor pulmonale Subjective: No new changes, Improving Patient is resting in the bed, patient is alert and oriented Breathing normally on oxygen 2 L/min Reporting SOB with mild exertion, Reports feeling very tired Bilateral LE DVT on Eliquis NAD Vital signs stable Review of Systems 10-point ROS is otherwise unremarkable Physical Examination - Vital Signs Temperature: 97.2 F Blood Pressure: 98/65 Pulse: 97 Respirations: 20 Pulse Ox (%): 94 Assessment And Plan - Current Problems (Diagnosis) (1) Acute respiratory failure Current Visit: Yes Status: Acute Plan: Acute hypoxic respiratory failure secondary to pneumonia Improving. Leukocytosis 24.4>23>17.4>17.5 Afebrile Pulmonary consult, O2 keep sats greater than 90% IV fluids, IV cefepime, IV Vanco as the WBC continue to be decrease, nebs, failed for outpatient treatment for pneumonia. chest x-ray IMPRESSION: Mild opacity right lateral base may indicate a mild pneumonia, SARS, negative Qualifiers: Respiratory failure complication: hypoxia Qualified Code(s): J96.01 - Acute respiratory failure with hypoxia (2) Pneumonia Current Visit: Yes Status: Acute Qualifiers: Pneumonia type: due to unspecified organism Laterality: right (3) Leukocytosis Current Visit: Yes Status: Acute (4) COPD (chronic obstructive pulmonary disease) Current Visit: Yes Status: Chronic Plan: Chronic, SOB with Mild exertion BL air entry clear, No Wheezes/crackles Bronchidilators as needed On O2 2lpm via nasal canula Unable to sleep on the bed Qualifiers: COPD type: COPD with acute lower respiratory infection Qualified Code(s): J44.0 - Chronic obstructive pulmonary disease with (acute) lower respiratory infection (5) DM2 (diabetes mellitus, type 2) Current Visit: No Status: Chronic Plan: Insulin-dependent diabetes Accu-Cheks, sliding scale insulin, resume home long-acting insulin blood glucose improving Check BS ac&Hs with RSSI Hypoglycemia precautions Qualifiers: Diabetes mellitus penitentiary insulin use: with penitentiary use Diabetes mellitus complication status: with hyperglycemia Qualified Code(s): E11.65 - Type 2 diabetes mellitus with hyperglycemia; Z79.4 - emt intermediate (current) use of insulin (6) DVT (deep venous thrombosis) Current Visit: Yes Status: Acute Plan: Patient has bilateral DVT high risk for thromboembolism Extrem Venous W Compress Anders - 02/14/2023 Thrombus is present in the right greater saphenous vein and right popliteal vein. Thrombus also noted in the left proximal femoral vein and left popliteal vein. Positive for bilateral DVT. On Eliquis 10mg po bid Qualifiers: DVT location: lower extremity Affected thrombotic vein of extremity: other lower extremity vein Laterality: bilateral Physician Review: Patient Assessed, Agree with Above Assessment and Plan
--- NOTE | 2023-02-17 10:37 | P.PN ---
Subjective Date of Service: 02/17/23 Chief Complaint: DVT cor pulmonale Patient had recent diagnosis of DVT with cor pulmonale CT pulmonary angiogram is pending shortness of breath has improved relatives at the bedside Review of Systems General: Weakness Respiratory: Shortness of Breath Physical Examination - Vital Signs Temperature: 97.2 F Blood Pressure: 98/65 Pulse: 97 Respirations: 20 Pulse Ox (%): 94 - Physical Exam General: Alert, Oriented x3 Respiratory: Clear to auscultation bilaterally, Diminished Cardiovascular: No edema, Regular rate/rhythm, Normal S1 S2 Assessment And Plan - Current Problems (Diagnosis) (1) Pulmonary embolism Current Visit: Yes Status: Acute Plan: Patient is 67 years of age admitted with DVT history of malignancy I strongly suspect that she has pulmonary embolism slightly low blood pressure and hypoxemia, cardiogram shows right ventricular dilatation patient is on Lovenox. CT pulmonary angiogram risk for thrombolytic therapy patient is subjectively improving. Suspect she may have underlying obstructive airways disease white count is declining changed to p.o. Macrodantin has Enterococcus in the urine there is significant thromboembolic disease is a possibility of catheter extraction blood sugars elevated increase dose of insulin patient takes 40 units of insulin a day Qualifiers: Acute cor pulmonale presence: with acute cor pulmonale Physician Review: Patient Assessed, Agree with Above Assessment and Plan
[2023-02-17 11:03] LABS: Magnesium 1.3 mg/dL (1.6-2.4); Phosphorus 2.3 mg/dL (2.5-4.9)
--- NOTE | 2023-02-17 11:24 | RAD REPORT ---
EXAM DESCRIPTION: CT - Chest For Pe Angio - 02/17/2023 11:10 am CLINICAL HISTORY: Chest pain. Rule out pulmonary embolism history of breast canc COMPARISON: Thorax W/ Con dated 06/15/2021 TECHNIQUE: CT angiogram of the pulmonary arteries was performed with MIP. All CT scans are performed using dose optimization technique as appropriate and may include automated exposure control or mA/KV adjustment according to patient size. FINDINGS: Moderate segmental subsegmental branch pulmonary thromboemboli are seen, greatest in the r ight lower lobe branch. There is evidence of mild RV strain pattern. No acute aortic finding demonstrated. Emphysematous changes are present with patchy opacity in both lung bases, greater on the right. This may represent infiltrate or pulmonary infarction. Small bilateral pleural effusions, greater on the right. No concerning bony finding. IMPRESSION: Positive for bilateral pulmonary thromboembolism as detailed, greater on the right. Mild RV strain pattern suspected. Small bilateral pleural effusions, greater on the right with patchy opacity the right lower lung whic h could be infiltrate or pulmonary infarction. The findings were discussed with Dr. Rangel On 02/17/2023 at 11:20 a.m. by telephone.
[2023-02-17] MEDS: NITROFURAN MACRO 100 MG CAP PO SCH ×2 (12:28→20:10)
[2023-02-17] MEDS ORDERED: FLEET ENEMA ADULT PR PRN (15:15)
[2023-02-17] MEDS ORDERED: BISACODYL 10 MG RECTAL SUPP PR ONE (15:15)
[2023-02-17] MEDS ORDERED: LACTULOSE 20 GM/30 ML UCUP PO ONE (15:15)
--- NOTE | 2023-02-17 16:32 | P.DS ---
Admission Date: 02/12/23 Discharge Date: 02/17/23 Reason for Admission: DVT cor pulmonale - Problems (1) Acute respiratory failure Status: Acute Qualifiers: Respiratory failure complication: hypoxia Qualified Code(s): J96.01 - Acute respiratory failure with hypoxia (2) Pneumonia Status: Acute Qualifiers: Pneumonia type: due to unspecified organism Laterality: right (3) Leukocytosis Status: Acute (4) COPD (chronic obstructive pulmonary disease) Status: Chronic Qualifiers: COPD type: COPD with acute lower respiratory infection Qualified Code(s): J44.0 - Chronic obstructive pulmonary disease with (acute) lower respiratory infection (5) DM2 (diabetes mellitus, type 2) Status: Chronic Qualifiers: Diabetes mellitus termite exterminator insulin use: with termite exterminator use Diabetes mellitus complication status: with hyperglycemia Qualified Code(s): E11.65 - Type 2 diabetes mellitus with hyperglycemia; Z79.4 - MCFP (current) use of insulin (6) DVT (deep venous thrombosis) Status: Acute Qualifiers: DVT location: lower extremity Affected thrombotic vein of extremity: other lower extremity vein Laterality: bilateral Brief History of Present Illness: History of Present Illness: 67-year-old female with a past medical history of breast cancer mets to the pancreas, on chemotherapy chronic back pain, diabetes, hyperlipidemia, insulin- dependent diabetes mellitus, presents presents to the [facility] emergency room with shortness of breath, cough, small amount of hemoptysis. She reports failed for outpatient treatment for pneumonia. History of breast cancer status postmastectomy, mets to the liver pancreas. She reports seeing Dr. Mathur on chemotherapy. She reports shortness of breath worse with exertion, worse when laying flat, no reported fever, chills, nausea vomiting diarrhea. Lower extremity edema. She reports associated generalized weakness, she lives at home with son, ambulates with a walker. She reports poor appetite. She reports symptoms started week 1 week ago and progressively getting worse. Plan to admit for acute hypoxic respiratory failure secondary to pneumonia, pneumonia, weakness, anorexia, metastatic breast cancer on chemotherapy. She was treated with Rocephin, IV fluids, chest x-ray IMPRESSION: Mild opacity right lateral base may indicate a mild pneumonia, laboratory evaluation WBCs 24.70, left shift 82.7, mild hypokalemia 3.2 mild hyponatremia 135 blood glucose 141, elevated lactic 2.5, magnesium 1.1, elevated BNP 578 to, troponin normal at 38, UA pending, SARS, negative Hospital Course: Ms. Swift, is a pleasant 67-year-old female patient with a past medical history significant for breast cancer mets to the pancreas, on chemotherapy, chronic back pain, diabetes, hyperlipidemia, insulin-dependent diabetes, present who was admitted to the [facility] on 02/12/2019 shortness of breath, chest x-ray shows cardiomegaly with elevated WBC of 24,000, elevated BNP over 5000, high risk for thromboembolism. Patient was admitted, treated with IV antibiotics, oxygen ,bronchodilators, analgesics as needed and IV fluids. Patient was found to have bilateral DVT on anticoagulation with Eliquis. CT angio done on 02/17/2023 shows positive bilateral pulmonary thromboembolism, greater on the right. Mild RV strain pattern suspected, results discussed with air sampling and monitoring and family members. Patient is being transferred to [facility] for further management. Patient is alert and oriented x 3, breathing normally on oxygen 2 L/min, hemodynamically stable. <Demetrius Manuel - Last Filed: 02/17/23 16:33> Admission Date: 02/12/23 Discharge Date: 02/18/23 Hospital Course: Pt seen and examined. I agree with the note by the INDOOR LANDSCAPE ARCHITECT. Pt presented with SOB. Imaging studies showed pneumonia and Doppler ultrasound showed bilateral DVT. The SOB persisted and continue iv antibiotics. We also started therapeutic lovenox for DVT and possible PE. CTA chest later showed bilateral PE ( R >L) with RV strain. Echo also showed evidence of RV strain. We transferred pt to [facility] for embolectomy. Pt was in fair condition prior to discharge. <Bryan Otero - Last Filed: 02/18/23 12:18> Disposition: TRANSFER TO [facility] Discharge Condition: SERIOUS Vital Signs/Physical Exam: Temp Pulse Resp BP Pulse Ox 97.6 F 97 H 20 110/71 96 02/17/23 12:00 02/17/23 12:00 02/17/23 12:00 02/17/23 12:00 02/17/23 12:00 General: Alert, Oriented x3 HEENT: Atraumatic, Normocephalic Neck: Supple, 2+ carotid pulse no bruit Respiratory: Clear to auscultation bilaterally, Normal air movement Cardiovascular: No edema, Normal pulses Capillary refill: <2 Seconds Gastrointestinal: Normal bowel sounds, Soft and benign Musculoskeletal: No clubbing, No swelling Integumentary: No rashes, No breakdown Neurological: Normal gait, Normal speech Laboratory Data at Discharge: WBC 15.80 thou/uL (4.3-10.9) H 02/17/23 09:25 Hgb 11.0 g/dL (12.0-15.0) L 02/17/23 09:25 Hct 33.8 % (36.0-45.0) L 02/17/23 09:25 Plt Count 469 thou/uL (152-406) H 02/17/23 09:25 PT 17.6 SECONDS (9.5-12.5) H 02/12/23 12:03 INR 1.62 02/12/23 12:03 APTT 28.4 SECONDS (24.3-36.9) 02/12/23 12:03 Sodium 139 mEq/L (136-145) 02/17/23 10:30 Potassium 4.0 mEq/L (3.5-5.1) 02/17/23 10:30 BUN 13 mg/dL (7-18) 02/17/23 10:30 Creatinine 0.59 mg/dL (0.55-1.02) 02/17/23 10:30 Glucose 176 mg/dL (74-106) H 02/17/23 10:30 Phosphorus 2.3 mg/dL (2.5-4.9) L 02/17/23 10:30 Magnesium 1.3 mg/dL (1.6-2.4) L 02/17/23 10:30 <Demetrius Manuel - Last Filed: 02/17/23 16:33> Vital Signs/Physical Exam: Temp Pulse Resp BP Pulse Ox 97.5 F 89 16 125/73 99 02/17/23 20:00 02/17/23 20:00 02/17/23 20:11 02/17/23 20:00 02/17/23 20:11 Laboratory Data at Discharge: WBC 15.80 thou/uL (4.3-10.9) H 02/17/23 09:25 Hgb 11.0 g/dL (12.0-15.0) L 02/17/23 09:25 Hct 33.8 % (36.0-45.0) L 02/17/23 09:25 Plt Count 469 thou/uL (152-406) H 02/17/23 09:25 PT 17.6 SECONDS (9.5-12.5) H 02/12/23 12:03 INR 1.62 02/12/23 12:03 APTT 28.4 SECONDS (24.3-36.9) 02/12/23 12:03 Sodium 139 mEq/L (136-145) 02/17/23 10:30 Potassium 4.0 mEq/L (3.5-5.1) 02/17/23 10:30 BUN 13 mg/dL (7-18) 02/17/23 10:30 Creatinine 0.59 mg/dL (0.55-1.02) 02/17/23 10:30 Glucose 176 mg/dL (74-106) H 02/17/23 10:30 Phosphorus 2.3 mg/dL (2.5-4.9) L 02/17/23 10:30 Magnesium 1.3 mg/dL (1.6-2.4) L 02/17/23 10:30 <Bryan Otero - Last Filed: 02/18/23 12:18> Diet: Regular Activity: Ad seun Physician Review: Patient Assessed, Agree with Above Assessment and Plan Time spent managing pt's care (in minutes): 55 (minutes) <Demetrius Manuel - Last Filed: 02/17/23 16:33> <Bryan Otero - Last Filed: 02/18/23 12:18> Home Medications: ALPRAZolam [Alprazolam] 1 mg PO BID 08/17/20 Ascorbic Acid [Vitamin C*] 500 mg PO DAILY 08/17/20 Aspirin [Aspirin EC 81 MG] 81 mg PO BEDTIME 08/17/20 Baclofen 10 mg PO BID 08/17/20 Cholecalciferol (Vitamin D3) [Vitamin D3] 1,000 unit PO DAILY 08/17/20 Cholestyramine (with Sugar) [Cholestyramine Packet] 4 gm PO DAILY 08/17/20 Diclofenac Sodium [Diclo Gel] 1 each TP PRN PRN 08/17/20 Esomeprazole Magnesium 40 mg PO DAILY 08/17/20 Gabapentin 300 mg PO TID 08/17/20 Insulin Glargine Human [Lantus*] 20 unit SQ BID 08/17/20 Metformin HCl 1,000 mg PO BIDWM 08/17/20 Multivitamin [One-Daily Multi-Vitamin] 1 each PO DAILY 08/17/20 [place]-3 Fatty Acids [[place]-3] 500 mg PO DAILY 08/17/20 Ondansetron HCl 4 mg PO Q8HP PRN 08/17/20 Pramipexole [Mirapex*] 0.25 mg PO BEDTIME 08/17/20 Sertraline [Zoloft*] 50 mg PO DAILY 08/17/20 Simvastatin 40 mg PO BEDTIME 08/17/20 Vitamin E 400 unit PO DAILY 08/17/20 fentaNYL [Fentanyl] 75 mcg TD Q72H 08/17/20 Hydromorphone [Dilaudid*] 8 mg PO Q3HR 02/14/23 Enoxaparin Sodium [Lovenox 80 MG INJ*] 80 mg SQ Q12HR 1 Days #2 syr 02/17/23 Mometasone/Formoterol [Dulera 100 Mcg/5 Mcg Inhaler] 2 puff IH BID 30 Days #2 inhaler 02/17/23 Nitrofuran Macro [Macrobid*] 100 mg PO BID 2 Days #4 cap 02/17/23 New Medications: Enoxaparin Sodium [Lovenox 80 MG INJ*] 80 mg SQ Q12HR 1 Days #2 syr Mometasone/Formoterol [Dulera 100 Mcg/5 Mcg Inhaler] 2 puff IH BID 30 Days #2 inhaler Nitrofuran Macro [Macrobid*] 100 mg PO BID 2 Days #4 cap Physician Discharge Instructions: Ms. Swift, is a pleasant 67-year-old female patient with a past medical history significant for breast cancer mets to the pancreas, on chemotherapy, chronic back pain, diabetes, hyperlipidemia, insulin-dependent diabetes, present who was admitted to the [facility] on 02/12/2019 shortness of breath, chest x-ray shows cardiomegaly with elevated WBC of 24,000, elevated BNP over 5000, high risk for thromboembolism. Patient was admitted, treated with IV antibiotics, oxygen ,bronchodilators, analgesics as needed and IV fluids. Patient was found to have bilateral DVT on anticoagulation with Eliquis. CT angio done on 02/17/2023 shows positive bilateral pulmonary thromboembolism, greater on the right. Mild RV strain pattern suspected, results discussed with air sampling and monitoring and family members. Patient is being transferred to [facility] for further management. Patient is alert and oriented x 3, breathing normally on oxygen 2 L/min, hemodynamically stable. Followup: Unknown,U [Primary Care Provider] -
[2023-02-17 17:27] VITALS: TEMP 97.5
[2023-02-17] MEDS ORDERED: INSULIN GLARGINE 100 UNIT/ML SQ SCH (21:00)
[2023-02-17 21:12] VITALS: BP 125/73
[2023-02-22] MEDS ORDERED: APIXABAN 5 MG TABLET PO SCH (09:00)
== END 2023-02-17 20:35 | disposition short-term general hospital (02) | DRG 871 ==
LOC: ER 09:55 → ERHOLD 12:27 → 2ND 19:40
PROVIDERS: ADMIT Hospitalist; ATTEND Hospitalist
DX: A41.9 Sepsis, unspecified organism (principal); I26.09 Other pulmonary embolism with acute cor pulmonale; J18.9 Pneumonia, unspecified organism; J96.01 Acute respiratory failure with hypoxia; E87.21 Acute metabolic acidosis; C78.89 Secondary malignant neoplasm of other digestive organs; E87.1 Hypo-osmolality and hyponatremia; R64 Cachexia; C78.7 Secondary malignant neoplasm of liver and intrahepatic bile duct; R04.2 Hemoptysis; I82.412 Acute embolism and thrombosis of left femoral vein; J44.0 Chronic obstructive pulmonary disease with (acute) lower respiratory infection; I82.431 Acute embolism and thrombosis of right popliteal vein; I82.432 Acute embolism and thrombosis of left popliteal vein; I82.811 Embolism and thrombosis of superficial veins of right lower extremity; C50.919 Malignant neoplasm of unspecified site of unspecified female breast; E11.65 Type 2 diabetes mellitus with hyperglycemia; R65.20 Severe sepsis without septic shock; Z79.4 Long term (current) use of insulin; E87.6 Hypokalemia; E83.42 Hypomagnesemia; E78.5 Hyperlipidemia, unspecified; M54.9 Dorsalgia, unspecified; F41.8 Other specified anxiety disorders; F17.210 Nicotine dependence, cigarettes, uncomplicated; R63.0 Anorexia; Z68.25 Body mass index [BMI] 25.0-25.9, adult; R53.1 Weakness; G89.29 Other chronic pain; Z11.52 Encounter for screening for COVID-19
CPT/HCPCS: 36415; 71045; 71275; 80048; 80202; 81001; 82947; 83605; 83735; 83880; 84100; 84484; 85025; 85610; 85730; 87040; 87077; 87086; 87088; 87186; 87804; 87811; 93005; 93306; 93970; 94760; 96361; 96365; 96375; 97161; 97530; 99285; J0692; J0696; J1815; J1940; J2405; J3475; J3535; J7030; J7040; J7050; J7605; J7644; Q9967